=== PATIENT | male | born 1945 | race Caucasian/White ===

== ENCOUNTER → 2017-12-18 11:04 | Outpatient (CLI) | payer MEDICARE, SELFPAY ==
--- NOTE | 2017-12-18 11:12 | XR_ITS ---
XR chest 2V HISTORY: ITS.REASON: SOB ORDERING PHYSICIAN: Tammy Bishop PATIENT AGE: 72 years COMPARISON: 11/20/2015 FINDINGS: There is cardiomegaly with prominence of the mediastinum similar to the previous exam. Mediastinal lipomatosis noted on previous chest CT Chronic pleural parenchymal changes are present with fibrosis. There is some increased density in the right lung base consistent with infiltrate. No acute bony anomalies. IMPRESSION: 1. Cardiomegaly with COPD/pulmonary fibrosis 2. Patchy infiltrate in right lung base
--- NOTE | 2017-12-18 11:13 | XR_ITS ---
EXAM: XR lumbar spine min 4V HISTORY: ITS.REASON: RT LEG NUMBNESS ORDERING PHYSICIAN: Tammy Bishop PATIENT AGE: 72 years COMPARISON: None FINDINGS: Normal alignment. No fracture or dislocation. No lytic or blastic change. There is mild multilevel endplate osteophytes with degenerative disc disease present at L5-S1. Incidental vascular calcification aorta. IMPRESSION: Degenerative disc disease L5-S1 with osteophytosis
== END ==
PROVIDERS: PCP Nurse Practitioner Family; Visit Provider Nurse Practitioner Family
DX: R20.0 Anesthesia of skin (principal); R06.02 Shortness of breath
CPT/HCPCS: 71046; 72110

== ENCOUNTER → 2017-12-25 16:07 | Outpatient (CLI) | payer MEDICARE, SELFPAY ==
[2017-12-25 16:47] LABS: Basophils % 0.5 % (0.1-2.0); Eosinophils # 0.2 K/mm3 (0.0-0.4); Eosinophils % 2.6 % (0.1-12.0); Hematocrit 37.9 % (42.0-52.0); Hemoglobin 12.7 g/dL (14.1-18.0); Lymphocytes # 1.5 K/mm3 (0.7-4.5); Lymphocytes % 24.3 K/mm3 (10-50); Mean Corpuscular HGB Conc 33.5 g/dL (31.8-35.4); Mean Corpuscular Hemoglobin 28.7 pg (27.0-31.2); Mean Corpuscular Volume 85.7 fl (80-94); Mean Platelet Volume 7.1 fl (7.4-10.4); Monocytes # 0.2 K/mm3 (0.1-1.0); Monocytes % 3.2 % (1.7-9.3); Neutrophils # 4.4 K/mm3 (1.8-7.8); Neutrophils % 69.4 % (37.0-80.0); Platelet Count 361 K/mm3 (142-424); Red Blood Count 4.42 M/mm3 (4.60-6.20); Red Cell Distribution Width 13.7 % (11.5-17.5); White Blood Count 6.3 K/mm3 (4.8-10.8)
== END ==
PROVIDERS: PCP Nurse Practitioner Family; Visit Provider Nurse Practitioner Family
DX: J18.1 Lobar pneumonia, unspecified organism (principal)
CPT/HCPCS: 36415; 85025; 87275; 87276

== ENCOUNTER → 2018-01-24 13:46 | Outpatient (CLI) | payer MEDICARE, SELFPAY ==
[2018-01-24 14:21] LABS: Blood Urea Nitrogen 12 mg/dL (7-18); Creatinine,Serum 1.05 mg/dL (0.70-1.30); Estimated Glomerular Filt Rate 70 ml/min (>60); GFR (African American) 84 ML/MIN (>60)
== END ==
PROVIDERS: Visit Provider Nurse Practitioner
DX: R06.02 Shortness of breath (principal)
CPT/HCPCS: 36415; 82565; 84520

== ENCOUNTER → 2018-01-25 14:15 | Outpatient (CLI) | payer MEDICARE, SELFPAY ==
--- NOTE | 2018-01-25 14:18 | CT_ITS ---
CT chest wo/w con HISTORY: Pneumonia, shortness of breath, interstitial fibrosis ITS.REASON: SOB ORDERING PHYSICIAN: Kaitlynn Elena PATIENT AGE: 72 years Technique: Axial images obtained. Sagittal and coronal reformatted images are also generated and reviewed. All CT scans at the facility use one or more dose reduction, viz: automated exposure control; ma/kV adjustment per patient size (including targeted exams where dose is matched to indication; i.e. head); or iterative reconstruction technique. CONTRAST: 75ml Isovue 370 I.V. COMPARISON: 11/30/2015 FINDINGS: There is mild mediastinal adenopathy with mildly enlarged right paratracheal lymph nodes. Subcarinal adenopathy is present with a brigette area measuring 2.9 x 2.2 cm previously 1.8 x 1.5 cm. Coronary artery calcifications are present. There is left ventricular hypertrophy. There is extensive diffuse bilateral pulmonary fibrosis with peripheral pulmonary fibrotic changes and peripheral honeycombing. These findings have progressed compared to the previous exam. Mild bronchiectasis is present in the lung bases within the lower lobes, lingula, and right middle lobe. These findings have also progressed. One cannot exclude the possibility of superimposed pneumonia in the lung bases and right middle lobe. No pleural effusion. Upper abdominal images show cholelithiasis and exophytic 2 cm right renal cyst. No acute bony findings. IMPRESSION: 1. Diffuse pulmonary fibrosis with honeycombing and bronchiectasis. These findings have progressed when compared to the previous exam 2. Mediastinal adenopathy which is also somewhat worse. 3. Cholelithiasis. 4. Coronary artery disease with thickened left tracheal wall suggesting left ventricular hypertrophy
== END ==
PROVIDERS: Family Provider Nurse Practitioner; PCP Nurse Practitioner Family; Visit Provider Nurse Practitioner
DX: R06.02 Shortness of breath (principal)
CPT/HCPCS: 71270; Q9967

== ENCOUNTER 2018-08-13 13:44 | Observation (INO) ==
[2018-08-13 14:41] LABS: Anion Gap 10.8 mEq/L (5-15); Calcium 9.5 mg/dL (8.5-10.1); Potassium 3.8 mmoL/L (3.5-5.1)
--- NOTE | 2018-08-13 15:02 | Emergency Department Note ---
ED Disposition Clinical Impression: COPD (chronic obstructive pulmonary disease), Community acquired bacterial pneumonia Disposition: Still a Patient Condition on Discharge: Fair Referrals: Tammy Bishop APRN [Primary Care Provider] - - Critical Care Critical Care Time: No Attestation: On 08/13/18, the high probability of a clinically significant, sudden or life threatening deterioration of the following system(s) required my full and direct attention, intervention and personal management. The time I documented below is in addition to time spent performing reported procedures but includes the following listed in this critical care notation. Medical Decision Making - Jl Inquiry Pt receiving controlled substance: No Jl was queried for this patient: No Vital Signs: 08/13/18 13:51 08/13/18 14:27 Temperature 98.2 F Temperature Source Oral Pulse Rate 77 Pulse Rate [Left Radial] 71 Respiratory Rate 20 Blood Pressure [Right Arm] 142/82 H Blood Pressure Mean [Right Arm] 102 Blood Pressure Source [Right Arm] Automatic Cuff Blood Pressure Position [Right Arm] Sitting 02 Sat by Pulse Oximetry 99 Oxygen Delivery Method Nasal Cannula Oxygen Flow Rate (LPM) 3 - Lab Data Lab Results 08/13/18 14:15: WBC 8.3, RBC 4.36 L, Hgb 12.9 L, Hct 40.7 L, MCV 93.4, MCH 29.7, MCHC 31.8, RDW 14.7, Plt Count 513 H, MPV 7.2 L, Neut % (Auto) 69.1, Lymph % (Auto) 22.0, Nobles % (Auto) 3.5, Eos % (Auto) 4.6, Baso % (Auto) 0.7, Neut # (Auto) 5.8, Lymph # (Auto) 1.8, Nobles # (Auto) 0.3, Eos # (Auto) 0.4, Baso # (Auto) 0.1 08/13/18 14:15: Sodium 136, Potassium 3.8, Chloride 102, Carbon Dioxide 27, Anion Gap 10.8, BUN 11, Creatinine 0.76, Estimated Creat Clear 70, Estimated GFR 101, Est GFR ( Amer) 122, Glucose 85, Calcium 9.5 08/13/18 14:15: Lactate 1.1 08/13/18 14:15: Total Creatine Kinase 26 L, CK-MB (CK-2) 0.5, CK-MB (CK-2) Rel Index 1.9, Troponin I < 0.02 08/13/18 14:54: Specimen Source Rt radial, O2 % 28, ABG pH 7.44, ABG pCO2 35.5, ABG pO2 77.4 L, ABG HCO3 23.6, ABG Total CO2 24.7, ABG O2 Saturation 95, ABG Base Excess -0.5, Deondre Test Acceptable Result diagrams: 08/13/18 14:15 08/13/18 14:15 Orders (Tests/Meds): ED MEDICATIONS Discontinued Medications Generic Name Dose Route Start Last Admin Trade Name Freq PRN Reason Stop Dose Admin Albuterol/Ipratropium 3 ml 08/13/18 13:59 08/13/18 14:26 Duoneb 3ml Neb IH 08/13/18 14:00 3 ml ONCE ONE Administration Methylprednisolone Sodium Succinate 125 mg 08/13/18 13:58 08/13/18 14:24 Solu-Medrol 125mg/2ml Vial IV 08/13/18 13:59 125 mg ONCE ONE Administration ORDERS Category Date Time Status B-Type Natriuretic Peptide Stat Lab 08/13/18 14:15 Received D-Dimer Stat Lab 08/13/18 14:15 Received Blood Culture Stat Micro 08/13/18 14:15 Received ABG [Arterial Blood Gas] Stat RT 08/13/18 14:54 Ordered - Radiology Data #1 Image(s): Chest Image Reviewed: Yes I reviewed the patient's radiology image, Yes I have reviewed radiologist's interpretation Preliminary Findings: Abnormal IMPRESSION: Chronic changes with bilateral pneumonia Medical Decision Narrative: Although the patient had normal CBC and stable ABG his chest x-ray is positive for bilateral infiltrates. Spoke with Dr. Vasquez who agreed to admit him start him on community-acquired pneumonia protocol. Resp/SOB HPI - General Chief Complaint: Shortness of Breath/Dyspnea Stated Complaint: SOA Time Seen by Provider: 08/13/18 14:00 Mode of Arrival: Wheelchair Limitations: No Limitations Description of Symptoms (Recalled from ER Triage Doc. by RN): PT states that he has been feeling more SOA for the last week. Was seen at the [facility] where they were unable to get it to 88. Pt has home oxygen - History of Present Illness 73 years old white male with end-stage COPD and congestive heart failure he is on home oxygen dependent. Today they had difficulty keeping his oxygen above 50 upon arrival to the primary care physician office it was in the 88%. On arrival to the ED it was 98%. Patient complains of progressive shortness of breath for the past week. He denies having fever chills productive sputum or chest pain. Denies having hemoptysis hematemesis coffee-ground emesis or melanotic stool. MD Complaint: shortness of breath Onset (ago): week(s) (one week.) Severity: moderate Consistency/Duration: intermittent Relieving factors: oxygen, rest, bronchodilators Exacerbating factors: exertion Associated symptoms: denies other symptoms Treatment prior to arrival: oxygen - Related Data Allergies Allergy/AdvReac Type Severity Reaction Status Date / Time codeine [CODEINE] Allergy Unknown NA-NAUSEA/V Verified 08/13/18 13:59 OMITING [facility] History I have reviewed the patient's past medical history: Yes Medical History: Reports:: Cancer (Prostate) - Social History Smoking Status: Former smoker Alcohol Intake: current Alcohol Intake Frequency:: holidays/special occasions only - Psychiatric History Expresses thoughts of harming self/others: None Suicide Plan Description: No Plan ROS Obtained: Yes All systems reviewed & no additional complaints Physical Exam - General General appearance: alert, in no apparent distress - Head Head exam: atraumatic, normocephalic, normal inspection - Eye Eye exam: Present: normal appearance, PERRL, EOMI. Absent: scleral icterus, nystagmus - ENT ENT exam: Present: normal exam, normal oropharynx, mucous membranes moist, TM's normal bilaterally, normal external ear exam - Neck Neck exam: Present: normal inspection, full ROM, trachea midline. Absent: tenderness, meningismus, lymphadenopathy - Chest Chest inspection: Present: normal inspection, symmetric chest wall rise. Absent: tenderness - Respiratory Respiratory exam: Present: normal lung sounds bilaterally. Absent: respiratory distress, wheezes - Cardiovascular Cardiovascular exam: Present: regular rate, normal rhythm, normal heart sounds. Absent: JVD - Abdominal Exam Abdominal exam: Present: soft, normal bowel sounds. Absent: distention, ten derness, guarding, rebound, rigidity - Extremities Exam Extremities exam: Present: normal inspection, full ROM, normal capillary refill. Absent: calf tenderness - Back Exam Back exam: Present: normal inspection. Absent: tenderness, CVA tenderness (R), CVA tenderness (L), vertebral tenderness - Neurological Exam Neurological exam: Present: alert, oriented X3, CN II-XII intact, motor sensory deficit - Psychiatric Psychiatric exam: Present: normal affect, normal mood - Skin Skin exam: Present: warm, dry, intact, normal color - Lymphatic Lymphatic Findings: no adenopathy
[2018-08-13 15:12] LABS: ABG Base Excess -0.5 mmol/L (-2.4-2.3); ABG HCO3 23.6 mmhg (22.0-26.0); ABG Oxygen Saturation 95 % (90-100); ABG PCO2 35.5 mmhg (35.0-45.0); ABG PH 7.44 mmol/L (7.35-7.45); ABG PO2 77.4 mmhg (80-100); ABG TCO2 24.7 mmhg (23-27)
[2018-08-13 15:12] LABS: Basophils # 0.1 K/mm3 (0-0.2); Basophils % 0.7 % (0.1-2.0); Eosinophils # 0.4 K/mm3 (0.0-0.4); Eosinophils % 4.6 % (0.1-12.0); Hematocrit 40.7 % (42.0-52.0); Hemoglobin 12.9 g/dL (14.1-18.0); Lymphocytes # 1.8 K/mm3 (0.7-4.5); Mean Corpuscular HGB Conc 31.8 g/dL (31.8-35.4); Mean Corpuscular Hemoglobin 29.7 pg (27.0-31.2); Mean Corpuscular Volume 93.4 fl (80-94); Mean Platelet Volume 7.2 fl (7.4-10.4); Monocytes # 0.3 K/mm3 (0.1-1.0); Monocytes % 3.5 % (1.7-9.3); Neutrophils # 5.8 K/mm3 (1.8-7.8); Neutrophils % 69.1 % (37.0-80.0); Platelet Count 513 K/mm3 (142-424); Red Blood Count 4.36 M/mm3 (4.60-6.20); Red Cell Distribution Width 14.7 % (11.5-17.5); White Blood Count 8.3 K/mm3 (4.8-10.8)
[2018-08-13 15:23] LABS: Allen's Test Acceptable; Oxygen 28 %
[2018-08-13 15:26] LABS: Creatine Kinase 26 U/L (39-308)
--- NOTE | 2018-08-14 07:08 | History & Physical Report ---
*Admission Date: 08/13/18 *Chief complaint: Shortness of breath *History of present illness: 73-year-old male with COPD and pulmonary fibrosis for which she is oxygen dependent presented to the office yesterday afternoon with complaints of mild increase in shortness of breath from baseline and inability to keep his oxygen's elevated at home. Normally with ambulation patient will experience a transient drop in his O2 sats but can get them to return to the low 90s. At home his oxygen saturations have been dropping to the 50s and 60s and were very slow to return to the mid 80s. He had noticed increasing cough with white sputum production. He denies fevers or chills. He was seen in the office and O2 sats were in the 70s and 80s. He was referred to the emergency department. In the emergency department workup was begun. Patient had a blood gas that was quite good. O2 sats in the ER were in the mid 90s on 3 L of oxygen via nasal cannula. X-ray was interpreted as bilateral infiltrates. Patient has known pulmonary fibrosis and tells me he just finished a prolonged taper from steroids a couple of weeks ago. 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 [facility] History I have reviewed the patient's past medical history: Yes Medical History: Reports:: Cancer (Prostate), Congestive Heart Failure, Diabetes Mellitus Type 2, Hyperlipidemia, Hypertension Denies:: Diabetes Mellitus Type 1 Laterality Cases: Right: Cataract Other Surgeries: Yes: Hernia Repair, Other (retina sx) - *Social History Smoking Status: Former smoker Alcohol Intake: current Alcohol Intake Frequency:: holidays/special occasions only Occupational Status: retired - Psychiatric History Expresses thoughts of harming self/others: None Suicide Plan Description: No Plan *Family Hx:: Cancer, Heart Attack, Stroke Review of Systems - Review of Systems Review of systems:: pertinent systems reviewed and negative unless documented below - Constitutional Denies anorexia, Denies body ache(s), Denies chills, Denies daytime sleepiness, Denies excessive sweating, Denies fatigue, Denies fever(s) - *Cardiovascular Denies chest pain, Denies chest pain at rest, Denies chest pain with activity - *Respiratory Reports chest congestion, Reports cough, Reports shortness of breath, Reports shortness of breath with activity, Denies coughing up blood, Denies pain on inspiration, Denies pain with cough Meds Home Medications Medication Instructions Recorded Confirmed Type Albuterol Sulfate [Albuterol HFA 1 puff INHALATION Q4H 08/13/18 08/13/18 History Inhaler] Alendronate Sodium 70 mg PO BID 08/13/18 08/13/18 History Amlodipine Besylate 10 mg PO HS 08/13/18 08/13/18 History Citalopram Hydrobromide [Celexa 10 mg PO DAILY 08/13/18 08/13/18 History 10mg Tablet] Fenofibrate Nanocrystallized 145 mg PO DAILY 08/13/18 08/13/18 History [Fenofibrate] Fluticasone/Umeclidin/Vilanter 1 puff INHALATION DAILY 08/13/18 08/13/18 History [Trelegy Ellipta 100-62.5-25] Glimepiride [Amaryl 2mg tablet] 2 mg PO DAILY 08/13/18 08/13/18 History Metformin HCl 850 mg PO BID 08/13/18 08/13/18 History Nintedanib Esylate [Ofev] 150 mg PO BID 08/13/18 08/13/18 History Pravastatin Sodium [Pravachol 20mg 20 mg PO HS 08/13/18 08/13/18 History Tablet] hydroCHLOROthiazide [HCTZ 12.5mg 12.5 mg PO DAILY 08/13/18 08/13/18 History capsule] Allergies Allergy/AdvReac Type Severity Reaction Status Date / Time codeine [CODEINE] Allergy Unknown NA-NAUSEA/V Verified 08/13/18 13:59 OMITING Exam Vital signs and Labs for Last 24 Hours: Temp Pulse Resp BP Pulse Ox 98.1 F 77 20 135/71 91 L 08/14/18 04:00 08/14/18 04:00 08/14/18 04:00 08/14/18 04:00 08/14/18 04:00 Laboratory Results - last 24 hr 08/13/18 14:15: WBC 8.3, RBC 4.36 L, Hgb 12.9 L, Hct 40.7 L, MCV 93.4, MCH 29.7, MCHC 31.8, RDW 14.7, Plt Count 513 H, MPV 7.2 L, Neut % (Auto) 69.1, Lymph % (Auto) 22.0, Nolan % (Auto) 3.5, Eos % (Auto) 4.6, Baso % (Auto) 0.7, Neut # (Auto) 5.8, Lymph # (Auto) 1.8, Nolan # (Auto) 0.3, Eos # (Auto) 0.4, Baso # (Auto) 0.1 08/13/18 14:15: Sodium 136, Potassium 3.8, Chloride 102, Carbon Dioxide 27, Anion Gap 10.8, BUN 11, Creatinine 0.76, Estimated Creat Clear 70, Estimated GFR 101, Est GFR ( Amer) 122, Glucose 85, Calcium 9.5 08/13/18 14:15: Lactate 1.1 08/13/18 14:15: Total Creatine Kinase 26 L, CK-MB (CK-2) 0.5, CK-MB (CK-2) Rel Index 1.9, Troponin I < 0.02 08/13/18 14:15: D-Dimer 575 H* 08/13/18 14:15: B-Natriuretic Peptide 37 08/13/18 14:54: Specimen Source Rt radial, O2 % 28, ABG pH 7.44, ABG pCO2 35.5, ABG pO2 77.4 L, ABG HCO3 23.6, ABG Total CO2 24.7, ABG O2 Saturation 95, ABG B ase Excess -0.5, Deondre Test Acceptable 08/13/18 20:47: POC Glucose 398 H* 08/14/18 05:38: POC Glucose 244 H I & O for Last 24 hours: Intake & Output 08/11/18 08/12/18 08/13/18 08/14/18 11:59 11:59 11:59 11:59 Intake Total 647 / 647 Output Total 900 / 900 Balance -253 / -253 Weight 164 lb 8.002 oz Narrative: Patient is awake and alert this morning. He does not appear to be in any respiratory distress. Pupils are reactive to light. Oropharynx is moist and clear. Neck is without lymphadenopathy. Lungs have poor inspiratory effort with dry bibasilar crackles. Heart has a regular rate and rhythm. Abdomen is thin and soft. Patient can move all of his extremities. Assessment and Plan (1) Community acquired bacterial pneumonia Current visit: Yes Status: Acute Category: Medical Code(s): J15.9 - Unspecified bacterial pneumonia (2) Interstitial pulmonary fibrosis Current visit: Yes Status: Acute Category: Medical Code(s): J84.10 - Pulmonary fibrosis, unspecified (3) COPD (chronic obstructive pulmonary disease) Current visit: Yes Status: Acute Category: Medical Code(s): J44.9 - Chronic obstructive pulmonary disease, unspecified - Assessment and plan all Dx Assessment and Plan for all problems:: 1. Continue Rocephin and azithromycin. Continue steroid intravenously. Based on patient's clinical picture I believe he may be dealing more with a flareup of his pulmonary fibrosis then true bacterial pneumonia. Patient does not endorse any symptoms of infection such as fevers and chills. His white blood cell count was normal. I am going to repeat his x-ray today. Consult physical therapy to assess his ability to ambulate independently. Continue his home medications.
[2018-08-14 07:11] LABS: Basophils % 0.3 % (0.1-2.0); Eosinophils % 0.4 % (0.1-12.0); Hematocrit 34.2 % (42.0-52.0); Lymphocytes # 1.5 K/mm3 (0.7-4.5); Lymphocytes % 18.4 K/mm3 (10-50); Mean Corpuscular HGB Conc 31.9 g/dL (31.8-35.4); Mean Corpuscular Hemoglobin 29.6 pg (27.0-31.2); Mean Corpuscular Volume 92.9 fl (80-94); Mean Platelet Volume 7.6 fl (7.4-10.4); Monocytes # 0.3 K/mm3 (0.1-1.0); Monocytes % 3.9 % (1.7-9.3); Neutrophils # 6.4 K/mm3 (1.8-7.8); Neutrophils % 77.1 % (37.0-80.0); Platelet Count 468 K/mm3 (142-424); Red Blood Count 3.69 M/mm3 (4.60-6.20); Red Cell Distribution Width 14.4 % (11.5-17.5); White Blood Count 8.4 K/mm3 (4.8-10.8)
[2018-08-14 07:22] LABS: Anion Gap 13.9 mEq/L (5-15); Calcium 8.7 mg/dL (8.5-10.1); Potassium 3.9 mmoL/L (3.5-5.1)
--- NOTE | 2018-08-14 07:44 | Pharmacy Consult Notes ---
[facility] Pharmacy VTE Monitoring - Patient Demographics Admission date: 08/13/18 Report Date: 08/14/18 Time: 07:44 Allergies/Adverse Reactions: Patient Allergies codeine [CODEINE] Allergy (Unknown, Verified 08/13/18 13:59) NA-NAUSEA/VOMITING Height: 1.8 m Weight: 74.616 kg Patient Problems: Current Active Problems COPD (chronic obstructive pulmonary disease) (Acute) Community acquired bacterial pneumonia (Acute) Interstitial pulmonary fibrosis (Acute) - VTE Risk Labs: VTE Related Lab Results Hgb 11.0 g/dL (14.1-18.0) L D 08/14/18 06:47 Hct 34.2 % (42.0-52.0) L 08/14/18 06:47 Plt Count 468 K/mm3 (142-424) H 08/14/18 06:47 BUN 11 mg/dL (7-18) 08/14/18 06:47 Creatinine 0.72 mg/dL (0.70-1.30) 08/14/18 06:47 Estimated Creat Clear 70 mL/min (0-300) 08/14/18 06:47 Was VTE Risk Assessment Performed: Yes VTE Score: 4 VTE Risk Level: Low Risk - Prophylaxis VTE Prophylaxis Ordered?: Yes Types of VTE Prophylaxis: TEDS Knee High Location of Applied Device: Bilateral Lower Extremeties - VTE Diagnosis Confirmed Treatment or plan recommended: Continue Current Treatment
--- NOTE | 2018-08-15 06:57 | Progress Note ---
Internal Medicine - PN: Subj *Date: 08/15/18 *Time: 06:54 Interval history: Patient has been awake most of the night after he developed some discomfort in his chest and shoulder around 1 AM. First episode of pain he describes as an aching sensation around the collarbone. Admits he had a similar pain 4-5 years ago. His pain lasted about 5-10 minutes before resolving. It occurred after he had moved to sitting on the side of the bed to use the urinal. Second episode of chest pain occurred shortly thereafter and he described as below the collarbone radiating down the left side of the chest. That pain lasted about 15 minutes. Throughout the night he admits he has had spots of pain in his left arm. In regard to his shortness of breath he feels like that has improved. He did see physical therapy yesterday. It was determined he does not have any current PT needs. Cough remains productive of white sputum Exam Vital signs and Labs for Last 24 Hours: Temp Pulse Resp BP Pulse Ox 97.7 F 85 16 147/79 H 91 L 08/15/18 04:00 08/15/18 04:00 08/15/18 04:00 08/15/18 04:00 08/15/18 06:28 Laboratory Results - last 24 hr 08/14/18 06:47: WBC 8.4, RBC 3.69 L, Hgb 11.0 L D, Hct 34.2 L, MCV 92.9, MCH 29.6, MCHC 31.9, RDW 14.4, Plt Count 468 H, MPV 7.6, Neut % (Auto) 77.1, Lymph % (Auto) 18.4, Nobles % (Auto) 3.9, Eos % (Auto) 0.4, Baso % (Auto) 0.3, Neut # (Auto) 6.4, Lymph # (Auto) 1.5, Nobles # (Auto) 0.3, Eos # (Auto) 0.0, Baso # (Auto) 0.0 08/14/18 06:47: Sodium 135 L, Potassium 3.9, Chloride 101, Carbon Dioxide 24, Anion Gap 13.9, BUN 11, Creatinine 0.72, Estimated Creat Clear 70, Estimated GFR 107, Est GFR ( Amer) 130, Glucose 250 H D, Calcium 8.7 08/14/18 11:52: POC Glucose 162 H 08/14/18 16:54: POC Glucose 298 H 08/14/18 20:32: POC Glucose 279 H 08/15/18 01:31: Troponin I < 0.02 08/15/18 06:00: POC Glucose 287 H I & O for Last 24 hours: Intake & Output 08/12/18 08/13/18 08/14/18 08/15/18 11:59 11:59 11:59 11:59 Intake Total 887 / 887 288 / 288 Output Total 1600 / 1600 2525 / 2525 Balance -713 / -713 -2237 / -2237 Weight 164 lb 8.002 oz Narrative: Patient does not appear to be in any distress. Lung examination reveals diffuse crackles from the left midlung to the base. Decreased basilar breath sounds. I do not hear any rales on the right today. Heart has a regular rate and rhythm. Assessment and Plan (1) Community acquired bacterial pneumonia Current visit: Yes Status: Acute Category: Medical Code(s): J15.9 - Unspecified bacterial pneumonia (2) Interstitial pulmonary fibrosis Current visit: Yes Status: Acute Category: Medical Code(s): J84.10 - Pulmonary fibrosis, unspecified (3) COPD (chronic obstructive pulmonary disease) Current visit: Yes Status: Acute Category: Medical Code(s): J44.9 - Chronic obstructive pulmonary disease, unspecified - Assessment and plan all Dx Assessment and Plan for all problems:: 1. Continue Rocephin and azithromycin 2. DC steroids 3. He has had a single negative troponin, repeat troponin at 8 AM 4. Echocardiogram today 5. Low-dose beta-michael
--- NOTE | 2018-08-16 06:43 | Discharge Summary ---
General - General Admission date:: 08/13/18 Discharge date: 08/16/18 HPI HPI: 73-year-old male with COPD and pulmonary fibrosis for which she is oxygen dependent presented to the office yesterday afternoon with complaints of mild increase in shortness of breath from baseline and inability to keep his oxygen's elevated at home. Normally with ambulation patient will experience a transient drop in his O2 sats but can get them to return to the low 90s. At home his oxygen saturations have been dropping to the 50s and 60s and were very slow to return to the mid 80s. He had noticed increasing cough with white sputum production. He denies fevers or chills. He was seen in the office and O2 sats were in the 70s and 80s. He was referred to the emergency department. In the emergency department workup was begun. Patient had a blood gas that was quite good. O2 sats in the ER were in the mid 90s on 3 L of oxygen via nasal cannula. X-ray was interpreted as bilateral infiltrates. Patient has known pulmonary fibrosis and tells me he just finished a prolonged taper from steroids a couple of weeks ago. His sole rounder is Dr. Matute. Hospital Course Hospital Course: Is admitted and placed on Rocephin and azithromycin. Initially he was also placed on Solu-Medrol intravenously. Patient improved a little each day. After the first day of admission chest x-ray was repeated as he has known pulmonary fibrosis and I thought perhaps the areas of "infiltrate" were only areas of his increased pulmonary fibrosis that had been detected earlier in the year. However repeat x-rays did confirm infiltrates. Patient continued to improve a little each day. He remained on oxygen which he is dependent on at home. His O2 sats were in the mid 90s during the entire hospitalization. By August 16 patient's dyspnea had improved. He was ambulating without assistance. He was discharged home. His hospitalization did include one episode of pain occurring around 1 AM on the morning of August 15. Serial enzymes were negative. EKG was unrevealing for acute ischemia or infarct. Echocardiogram was ordered but at the time of this dictation there is no result. Patient will complete a cord antibiotics. He will follow-up in my office next week for flu vaccination Objective Vital signs: Temp Pulse Resp BP Pulse Ox 98.8 F 68 14 126/73 96 08/16/18 04:00 08/16/18 04:00 08/16/18 04:00 08/16/18 04:00 08/16/18 04:00 Results Labs on day of discharge: Labs from last 24 hours 08/15/18 08/15/18 08/15/18 16:43 11:58 08:02 POC Glucose 191 H 239 H Troponin I < 0.02 Preliminary micro results at discharge 08/13/18 14:15 Blood Culture - Preliminary Blood NO GROWTH AFTER 48 HOURS 08/13/18 14:15 Blood Culture - Preliminary Blood NO GROWTH AFTER 48 HOURS DS: Diagnosis - Discharge Diagnosis (1) Community acquired bacterial pneumonia Status: Acute (2) Interstitial pulmonary fibrosis Status: Acute (3) COPD (chronic obstructive pulmonary disease) Status: Acute (4) Chest pain Status: Acute Discharge Plan - Patient Discharge Instructions ACTIVITY: Continue current activity DIET: continue same diet - Follow up Plan Follow up with: Mo Vasquez MD [Staff Physician] - 08/21/18 10:00 am Disposition: Home, Self-Halfway Medications: Home Medications Medication Instructions Recorded Confirmed Type Albuterol Sulfate [Albuterol HFA 2 puff INHALATION Q4HP PRN 08/13/18 08/14/18 History Inhaler] Alendronate Sodium 70 mg PO TU 08/13/18 08/14/18 History Amlodipine Besylate 10 mg PO HS 08/13/18 08/13/18 History Citalopram Hydrobromide [Celexa 10 mg PO DAILY 08/13/18 08/13/18 History 10mg Tablet] Fenofibrate Nanocrystallized 145 mg PO DAILY 08/13/18 08/13/18 History [Fenofibrate] Fluticasone/Umeclidin/Vilanter 1 puff INHALATION DAILY 08/13/18 08/13/18 History [Trelegy Ellipta 100-62.5-25] Glimepiride [Amaryl 2mg tablet] 2 mg PO DAILY 08/13/18 08/13/18 History Metformin HCl 850 mg PO BID 08/13/18 08/13/18 History Nintedanib Esylate [Ofev] 150 mg PO BID 08/13/18 08/13/18 History Pravastatin Sodium [Pravachol 20mg 20 mg PO HS 08/13/18 08/13/18 History Tablet] hydroCHLOROthiazide [HCTZ 12.5mg 12.5 mg PO DAILY 08/13/18 08/13/18 History capsule] Prescriptions/Medication Reconciliation: New Azithromycin [Zithromax 250mg tab] 250 mg PO DAILY #3 tablet Continue Metformin HCl 850 mg PO BID hydroCHLOROthiazide [HCTZ 12.5mg capsule] 12.5 mg PO DAILY Fluticasone/Umeclidin/Vilanter [Trelegy Ellipta 100-62.5-25] 1 puff INHALATION DAILY Fenofibrate Nanocrystallized [Fenofibrate] 145 mg PO DAILY Citalopram Hydrobromide [Celexa 10mg Tablet] 10 mg PO DAILY Amlodipine Besylate 10 mg PO HS Alendronate Sodium 70 mg PO TU Albuterol Sulfate [Albuterol HFA Inhaler] 2 puff INHALATION Q4HP PRN PRN Reason: Shortness Of Breath Pravastatin Sodium [Pravachol 20mg Tablet] 20 mg PO HS Glimepiride [Amaryl 2mg tablet] 2 mg PO DAILY Nintedanib Esylate [Ofev] 150 mg PO BID
--- NOTE | 2018-08-16 14:39 | Cardiology Report ---
PROCEDURE: 2-D M-mode and color Doppler study INDICATIONS FOR THE TEST: Chest pain+ COPD+ Heart Murmur Tobacco SmokingEX Palpitations Fatigue Syncope Edema Hypertension+Diabetes Mellitus+ Rheumatic Fever SOB+PEPE+Obesity Hyperlipidemia+ Family History HD Additional History pulmonary fibrosis PATIENT INFORMATION HEIGHT: 72 WEIGHT: 164 GENDER: Male B/P: 147/79 2-D/M-MODE INTERPRETATION: 2-D MEASUREMENTS OBSERVED VALUES IN CMS Right Ventricular Dimension (RVDd) 1.8 Interventricular Septum (Thickness)(IVsd) 1.0 Left Ventricular Internal Dimensions(LVIDd) 4.7 Left Ventricular Posterior Wall (Thickness)(LVPWd) 1.0 Aortic Root 3.6 Aortic Cusp Separation 2.6 Left Atrial Dimensions (LAD) 2.3 2D 1. Left atrium is qualitatively mildly enlarged, left ventricle is normal size, mild qualitative concentric left ventricular hypertrophy, visually estimated ejection fraction 55% with no regional wall motion abnormality. 2. The right atrium and right ventricle are normal size and contractility. 3. The aortic valve is minimally thickened and fibrosed. 4. The mitral and tricuspid valvular grossly normal. 5. The pulmonic valve is poorly visualized. 6. No significant pericardial effusion noted. DOPPLER INTERROGATION: Doppler interrogation of the aortic, mitral and tricuspid valvular presence of mild mitral and tricuspid regurgitation, tricuspid regurgitation jet velocity is insufficient for calculation of the right ventricular systolic pressure, grade 1 diastolic dysfunction seen with tissue Doppler evidence of raised left atrial pressure. CONCLUSION: 1. Mildly enlarged left atrium, normal left ventricular size, mild qualitative concentric left ventricular hypertrophy, visually estimated ejection fraction 55% with no regional wall motion abnormality, grade 1 diastolic dysfunction seen with tissue Doppler evidence of raised left atrial pressure. 2. Mild mitral and tricuspid regurgitation 3. No significant pericardial effusion noted.
== END 2018-08-16 10:45 | disposition home or self-care (01) ==
LOC: 2ND 13:44 → ER 13:44 → 2ND 18:36
PROVIDERS: ADMIT Family Medicine; ATTEND Family Medicine

== ENCOUNTER → 2018-09-26 15:02 | Outpatient (CLI) | payer MEDICARE, SELFPAY ==
--- NOTE | 2018-09-26 15:12 | XR_ITS ---
XR chest 2V HISTORY: ITS.REASON: PULMONARY FIBROSIS,PNEUMONIA ORDERING PHYSICIAN: Roz Emmanuel PATIENT AGE: 73 years COMPARISON: 08/15/2018 FINDINGS: There is cardiomegaly without failure. There is diffuse pulmonary fibrotic changes with pleural thickening similar to the previous exam. No new areas of consolidation are evident. Previously noted superimposed pneumonia in the left upper lobe has shown improvement. IMPRESSION: Cardiomegaly with diffuse pulmonary fibrotic changes with no acute finding
== END ==
PROVIDERS: PCP Family Medicine; Visit Provider Nurse Practitioner Family
DX: J84.10 Pulmonary fibrosis, unspecified (principal); J18.9 Pneumonia, unspecified organism
CPT/HCPCS: 71046

== ENCOUNTER → 2019-02-13 13:15 | Outpatient (POV) | payer MEDICARE, SELFPAY | DX: Z00.00 Encounter for general adult medical examination without abnormal findings (principal) ==

== ENCOUNTER 2019-03-01 21:25 | Observation (INO) ==
--- NOTE | 2019-03-01 21:36 | Emergency Department Note ---
ED Disposition Clinical Impression: Proctitis, COPD (chronic obstructive pulmonary disease) Disposition: Admitted as Observation Condition on Discharge: Fair Instructions: DI for Urinary Tract Infection (UTI), DI for Urinary Tract Infection in Children Referrals: Mo Vasquez MD [Primary Care Provider] - Time of Disposition: 00:00 - Critical Care Critical Care Time: No Attestation: On , the high probability of a clinically significant, sudden or life threatening deterioration of the following system(s) required my full and direct attention, intervention and personal management. The time I documented below is in addition to time spent performing reported procedures but includes the following listed in this critical care notation. Medical Decision Making - Medical Records Medical records reviewed: Yes: I reviewed the patient's medical records. - Jl Inquiry Pt receiving controlled substance: No Jl was queried for this patient: No Vital Signs: 03/01/19 21:25 Temperature 98.0 F Temperature Source Oral Pulse Rate [Right Brachial] 98 H Respiratory Rate 15 Blood Pressure [Right Arm] 156/80 H Blood Pressure Mean [Right Arm] 105 02 Sat by Pulse Oximetry 91 L Oxygen Delivery Method Nasal Cannula Oxygen Flow Rate (LPM) 4 - Lab Data Lab results reviewed: Yes: I reviewed the patient's lab results. Lab Results 03/01/19 21:35: Urine Color Yellow, Urine Appearance Clear, Urine pH 6.5, Ur Specific Wallback 1.020, Urine Protein Negative, Urine Glucose (UA) Negative, Urine Ketones Negative, Urine Blood Negative, Urine Nitrate Negative, Urine Bilirubin Negative, Urine Urobilinogen 0.2, Ur Leukocyte Esterase Negative, Urine WBC 3-5, Ur Squamous Epith Cells 3-5, Urine Bacteria 1+ 03/01/19 21:45: WBC 16.6 H, RBC 4.43 L, Hgb 13.8 L, Hct 41.0 L, MCV 92.4, MCH 31.0, MCHC 33.6, RDW 14.0, Plt Count 410, MPV 6.7 L, Neut % (Auto) 83.6 H, Lymph % (Auto) 10.5, Thayer % (Auto) 2.8, Eos % (Auto) 2.9, Baso % (Auto) 0.3, Neut # (Auto) 13.9 H, Lymph # (Auto) 1.7, Thayer # (Auto) 0.5, Eos # (Auto) 0.5 H, Baso # (Auto) 0.0, Total Counted 100, Neutrophils % (Manual) 86 H, Lymphocytes % (Manual) 7 L, Monocytes % (Manual) 3, Eosinophils % (Manual) 4 H, Platelet Estimate Normal, Anisocytosis 1+ 03/01/19 21:45: Sodium 132 L, Potassium 3.7, Chloride 98, Carbon Dioxide 26, Anion Gap 11.7, BUN 15, Creatinine 0.72, Estimated Creat Clear 69, Estimated GFR 107, Est GFR ( Amer) 130, Glucose 65 L, Calcium 9.0, Total Bilirubin 0.4, AST 19, ALT 30, Alkaline Phosphatase 44 L, Total Protein 6.7, Albumin 3.1 L, Globulin 3.6 H, Albumin/Globulin Ratio 0.9 L, Amylase 64, Lipase 118 03/01/19 23:45: POC Glucose 68 L Result diagrams: 03/01/19 21:45 03/01/19 21:45 Orders (Tests/Meds): ED MEDICATIONS Generic Name Dose Route Start Last Admin Trade Name Freq PRN Reason Stop Dose Admin Sodium Chloride 1,000 mls @ 999 mls/hr 03/01/19 21:45 03/01/19 21:46 Sod Chlor 0.9% 1000ml Bag IV 03/01/19 22:45 999 mls/hr .Q1H1M VERONICA Administration Levofloxacin/Dextrose 750 mg in 150 mls @ 100 mls/hr 03/01/19 23:45 Levofloxacin 750mg/150ml Premix IV 03/15/19 23:44 Q24H VERONICA Protocol Metronidazole 500 mg in 100 mls @ 100 mls/hr 03/01/19 23:45 03/01/19 23:50 Flagyl 500mg/100ml Ivpb IV 03/15/19 23:44 100 mls/hr Q8H VERONICA Administration Protocol Discontinued Medications Generic Name Dose Route Start Last Admin Trade Name Freq PRN Reason Stop Dose Admin Dextrose 25 ml 03/01/19 23:46 03/01/19 23:50 Dextrose 50% 50ml Syringe IVP 03/01/19 23:47 25 ml ONCE ONE Administration Dextrose/Sodium Chloride 1,000 mls @ 125 mls/hr 03/01/19 23:45 Dextrose 5%-0.9% Nacl Iv Soln IV 03/31/19 23:44 .Q8H VERONICA ORDERS Category Date Time Status CT abdomen pelvis wo con Stat Cat Scan 03/01/19 21:36 Taken Male Urogenital HPI - General Chief complaint: Urogenital-Male Stated complaint: urine retention and constipation Time Seen by Provider: 03/01/19 21:31 Mode of Arrival: EMS Source of Information: Patient Limitations: No Limitations Description of Symptoms (Recalled from ER Triage Doc. by RN): Pt brought in by EMS for c/o bladder rentention and constipation. Hx of prostate cancer. - History of Present Illness HPI Narrative: last void mid-morning. history prostate CA, s/p irradiation - Related Data Home Medications Medication Instructions Recorded Confirmed Albuterol Sulfate [Albuterol HFA 2 puff INHALATION Q4HP PRN 08/13/18 03/01/19 Inhaler] Fenofibrate Nanocrystallized 145 mg PO DAILY 08/13/18 03/01/19 [Fenofibrate] Fluticasone/Umeclidin/Vilanter 1 puff INHALATION DAILY 08/13/18 03/01/19 [Trelegy Ellipta 100-62.5-25] Glimepiride [Amaryl 2mg tablet] 2 mg PO DAILY 08/13/18 03/01/19 Metformin HCl 850 mg PO BID 08/13/18 03/01/19 Nintedanib Esylate [Ofev] 150 mg PO BID 08/13/18 03/01/19 Pravastatin Sodium [Pravachol 20mg 20 mg PO HS 08/13/18 03/01/19 Tablet] hydroCHLOROthiazide [HCTZ 12.5mg 12.5 mg PO DAILY 08/13/18 03/01/19 capsule] Amlodipine Besylate 10 mg PO HS 03/01/19 03/01/19 Aspirin [Aspirin 81mg chewable 81 mg PO DAILY 03/01/19 03/01/19 tab] Megestrol Acetate [Megestrol 1 mg PO DAILY 03/01/19 03/01/19 Acetate 40mg Tablet] Allergies Allergy/AdvReac Type Severity Reaction Status Date / Time codeine [CODEINE] Allergy Unknown NA-NAUSEA/V Verified 03/01/19 21:30 OMITING [facility] History - Hepatitis A Screen Drug use history?: No High risk sexual behaviors?: No History of sexually transmitted infection?: No Currently employed?: No Childcare worker?: No Do you have indoor plumbing?: No Do you have electricity?: No Attestation statement:: This patient has been screened for Hepatitis A risk factors. I have reviewed the patient's past medical history: Yes Medical History: Reports:: Cancer (Prostate), Congestive Heart Failure, Diabetes Mellitus Type 2, Hyperlipidemia, Hypertension Denies:: Diabetes Mellitus Type 1 Other Surgeries: Yes: Hernia Repair, Other (retina sx) - Social History Smoking Status: Former smoker Alcohol Intake: current Alcohol Intake Frequency:: holidays/special occasions only Occupational Status: retired Housing: house - Psychiatric History Expresses thoughts of harming self/others: None Suicide Plan Description: No Plan Family Hx:: Cancer, Heart Attack, Stroke ROS Obtained: Yes All systems reviewed & no additional complaints - Constitutional Constitutional: Reports chills, Denies fever(s) - Cardiovascular Cardiovascular: Denies chest pain, Reports diaphoresis, Reports dyspnea, Reports other (on home oxygen) - Respiratory Respiratory: Yes dyspnea - Gastrointestinal Gastrointestingal: Reports: abdominal pain, vomiting - Genitourinary Male Genitourinary: Reports difficulty urinating, Reports decreased urination, Reports other (urinary retention) - Integumentary/Breasts Skin/Breast: Denies rash - Neurologic Neurologic: Reports system reviewed and no additional complaints, except as docu - Hematologic/Lymphatic Henatologic/Lymphatic: Denies easy bleeding, Denies easy bruising Physical Exam - General General appearance: alert, anxious, in distress - Head Head exam: atraumatic, normocephalic, normal inspection - Eye Eye exam: Present: normal appearance, PERRL, EOMI - ENT ENT exam: Present: normal exam, normal oropharynx, mucous membranes moist, TM's normal bilaterally, normal external ear exam - Chest Chest inspection: Present: normal inspection, symmetric chest wall rise. Absent: tenderness - Respiratory Respiratory exam: Present: normal lung sounds bilaterally. Absent: respiratory distress - Cardiovascular Cardiovascular exam: Present: regular rate, normal rhythm. Absent: JVD - Abdominal Exam Abdominal exam: Present: soft, distention, tenderness Abdominal tenderness: Present: LLQ, moderate Comment: did not resolve with bladder decompression. relating to need for bm, unable to. Will evaluate with CT, pain seems consistent with possible diverticulitis and would not want to miss that given his wbc is [id number] - Extremities Exam Extremities exam: Present: normal inspection - Back Exam Back exam: Present: normal inspection. Absent: tenderness - Neurological Exam Neurological exam: Present: alert, oriented X3
[2019-03-01 21:44] LABS: Microscopic, Urine URINE MICROSCOPIC (MICROSCOPIC)
[2019-03-01 21:45] LABS: Appearance,Urine CLEAR (Clear); Bilirubin,Urine Negative (Negative); Blood, Urine Negative (Negative); Color,Urine YELLOW (Yellow); Glucose,Urine (UA) Negative (Negative); Ketones,Urine Negative (Negative); Leukocyte Esterase,Urine Negative (Negative); PH,Urine 6.5 (5.0-8.5); Protein,Urine Negative (Negative); Urobilinogen,Urine 0.2 EU/dl (0.2)
[2019-03-01 21:53] LABS: Basophils % 0.3 % (0.1-2.0); Eosinophils # 0.5 K/mm3 (0.0-0.4); Eosinophils % 2.9 % (0.1-12.0); Hemoglobin 13.8 g/dL (14.1-18.0); Lymphocytes # 1.7 K/mm3 (0.7-4.5); Lymphocytes % 10.5 % (10-50); Mean Corpuscular HGB Conc 33.6 g/dL (31.8-35.4); Mean Corpuscular Volume 92.4 fl (80-94); Mean Platelet Volume 6.7 fl (7.4-10.4); Monocytes # 0.5 K/mm3 (0.1-1.0); Monocytes % 2.8 % (1.7-9.3); Neutrophils # 13.9 K/mm3 (1.8-7.8); Neutrophils % 83.6 % (37.0-80.0); Platelet Count 410 K/mm3 (142-424); Red Blood Count 4.43 M/mm3 (4.60-6.20); White Blood Count 16.6 K/mm3 (4.8-10.8)
[2019-03-01 21:53] LABS: Bacteria,Urine 1+ /lpf
[2019-03-01 22:07] LABS: Albumin Level 3.1 gm/dL (3.4-5.0); Albumin/Globulin Ratio 0.9 (1.1-1.8); Anion Gap 11.7 mEq/L (5-15); Bilirubin,Total 0.4 mg/dL (0.2-1.0); Globulin 3.6 gm/dl (1.3-3.2); Potassium 3.7 mmoL/L (3.5-5.1); Total Protein,Serum 6.7 gm/dL (6.4-8.2)
[2019-03-01 22:32] LABS: Anisocytosis 1+; Eosinophils % 4 % (0-3); Lymphocytes % 7 % (10-50); Monocytes % 3 % (2-9); Neutrophils % 86 % (42-76); Total Cells Counted 100
[2019-03-02 07:24] LABS: Basophils % 0.2 % (0.1-2.0); Eosinophils # 0.2 K/mm3 (0.0-0.4); Eosinophils % 1.8 % (0.1-12.0); Hematocrit 35.3 % (42.0-52.0); Lymphocytes # 1.2 K/mm3 (0.7-4.5); Lymphocytes % 10.7 % (10-50); Mean Corpuscular HGB Conc 33.8 g/dL (31.8-35.4); Mean Corpuscular Hemoglobin 31.3 pg (27.0-31.2); Mean Corpuscular Volume 92.5 fl (80-94); Monocytes # 0.4 K/mm3 (0.1-1.0); Monocytes % 3.2 % (1.7-9.3); Neutrophils # 9.4 K/mm3 (1.8-7.8); Platelet Count 306 K/mm3 (142-424); Red Blood Count 3.81 M/mm3 (4.60-6.20); Red Cell Distribution Width 14.1 % (11.5-17.5); White Blood Count 11.2 K/mm3 (4.8-10.8)
[2019-03-02 07:37] LABS: Anion Gap 12.5 mEq/L (5-15); Calcium 8.1 mg/dL (8.5-10.1); Potassium 3.5 mmoL/L (3.5-5.1)
--- NOTE | 2019-03-02 07:41 | H&P/Discharge Summary ---
General - General Admission date:: 03/02/19 Discharge date: 03/01/19 *Admission Date: 03/01/19 *Chief complaint: "I cannot pee and I cannot have a bowel movement" *History of present illness: This document was started in error, please see history and physical. [facility] History I have reviewed the patient's past medical history: Yes Medical History: Reports:: Cancer (Prostate), Congestive Heart Failure, Chronic Obstructive Pulmonary Disease (COPD), Diabetes Mellitus Type 2, Hyperlipidemia, Hypertension Denies:: Diabetes Mellitus Type 1, MRSA *Have you ever received a pneumonia vaccine?: Yes *Have you received a flu vaccine this season?: Yes Comment:: Interstitial pulmonary fibrosis Other Surgeries: Yes: Colonoscopy, Hernia Repair, Other (retina sx) Amputation: No - *Social History Educational Level: Attended High School Smoking Status: Current some day smoker Tobacco Type: smokeless tobacco # Packs/Day (cigarettes): 0 Alcohol Intake: current Alcohol Intake Frequency:: holidays/special occasions only *Occupational Status:: retired Housing: house Household Members: spouse, family *Travel in the last 8 weeks: None - Psychiatric History Expresses thoughts of harming self/others: None Suicide Plan Description: No Plan Family Hx:: Cancer, Heart Attack, Stroke Review of Systems - Review of Systems Review of systems:: pertinent systems reviewed and negative unless documented below - Constitutional Denies body ache(s), Denies chills - *Cardiovascular Denies chest pain, Denies chest pain at rest, Denies chest pain with activity - *Respiratory Denies chest congestion, Denies cough - *Gastrointestinal Reports change in bowel habits, Reports constipation, Reports cramping, Denies belching, Denies bloating, Denies coffee ground vomit, Denies difficulty swallowing - *Genitourinary Reports difficulty urinating Exam Vital signs and Labs for Last 24 Hours: Temp Pulse Resp BP Pulse Ox 98.3 F 91 H 18 120/72 94 L 03/02/19 04:26 03/02/19 04:26 03/02/19 04:26 03/02/19 04:26 03/02/19 04:26 Laboratory Results - last 24 hr 03/01/19 21:35: Urine Color Yellow, Urine Appearance Clear, Urine pH 6.5, Ur Specific [place] 1.020, Urine Protein Negative, Urine Glucose (UA) Negative, Urine Ketones Negative, Urine Blood Negative, Urine Nitrate Negative, Urine Bilirubin Negative, Urine Urobilinogen 0.2, Ur Leukocyte Esterase Negative, Urine WBC 3-5, Ur Squamous Epith Cells 3-5, Urine Bacteria 1+ 03/01/19 21:45: WBC 16.6 H, RBC 4.43 L, Hgb 13.8 L, Hct 41.0 L, MCV 92.4, MCH 31.0, MCHC 33.6, RDW 14.0, Plt Count 410, MPV 6.7 L, Neut % (Auto) 83.6 H, Lymph % (Auto) 10.5, [place] % (Auto) 2.8, Eos % (Auto) 2.9, Baso % (Auto) 0.3, Neut # (Auto) 13.9 H, Lymph # (Auto) 1.7, [place] # (Auto) 0.5, Eos # (Auto) 0.5 H, Baso # (Auto) 0.0, Total Counted 100, Neutrophils % (Manual) 86 H, Lymphocytes % (Manual) 7 L, Monocytes % (Manual) 3, Eosinophils % (Manual) 4 H, Platelet Estimate Normal, Anisocytosis 1+ 03/01/19 21:45: Sodium 132 L, Potassium 3.7, Chloride 98, Carbon Dioxide 26, Anion Gap 11.7, BUN 15, Creatinine 0.72, Estimated Creat Clear 69, Estimated GFR 107, Est GFR ( Amer) 130, Glucose 65 L, Calcium 9.0, Total Bilirubin 0.4, AST 19, ALT 30, Alkaline Phosphatase 44 L, Total Protein 6.7, Albumin 3.1 L, Globulin 3.6 H, Albumin/Globulin Ratio 0.9 L, Amylase 64, Lipase 118 03/01/19 23:45: POC Glucose 68 L 03/02/19 00:10: Lactate 1.1 03/02/19 00:17: POC Glucose 175 H 03/02/19 01:45: Stl Aeromonas (PCR) Not detected, Stl C. cayetanensis PCR Not detected, Stool Rotavirus (PCR) Not detected, Stl Adenov F 40/41 PCR Not detected, Stool Astrovirus (PCR) Not detected, Stool Campylobacter PCR Not detected, Stl C.difficile Tox PCR Not detected, Stool Cryptosporidium PCR Not detected, Stl E.coli Shiga Tox PCR Not detected, Stool E coli O157 PCR Not detected, Stl Enterotoxigenic E PCR Not detected, Stool EPEC (PCR) Not detected, Stool EAEC (PCR) Not detected, Stl E. histolytica PCR Not detected, Stool G iardia Lamblia PCR Not detected, Stool Salmonella PCR Not detected, Stool Sapovirus (PCR) Not detected, Stl P. shigelloides PCR Not detected, Stl Shigella/EIEC PCR Not detected, St Y.enterocolitica PCR Not detected, Stool Vibrio (PCR) Not detected, Stl Vibrio cholerae PCR Not detected, Stl Norovirus GI/GII PCR Not detected 03/02/19 06:00: WBC 11.2 H D, RBC 3.81 L, Hgb 12.0 L D, Hct 35.3 L, MCV 92.5, MCH 31.3 H, MCHC 33.8, RDW 14.1, Plt Count 306 D, MPV 7.0 L, Neut % (Auto) 84.0 H, Lymph % (Auto) 10.7, [place] % (Auto) 3.2, Eos % (Auto) 1.8, Baso % (Auto) 0.2, Neut # (Auto) 9.4 H, Lymph # (Auto) 1.2, [place] # (Auto) 0.4, Eos # (Auto) 0.2, Baso # (Auto) 0.0 I & O for Last 24 hours: Intake & Output 02/27/19 02/28/19 03/01/19 03/02/19 11:59 11:59 11:59 11:59 Intake Total 1593 / 1593 Output Total 750 / 750 Balance 843 / 843 Weight 147 lb 7 oz Narrative: Patient appears comfortable lying in bed. Nasal cannula is in place. He appears chronically ill. Lungs have poor aeration. Heart has a regular rate and rhythm. Abdomen is soft and nontender. Rectal exam reveals prominent stool within the rectal vault. Stool is a variable consistency but some of it is certainly harder. Rectal exam was not difficult but patient complained of significant pain with exam. Results Labs on day of discharge: Labs from last 24 hours 03/02/19 03/02/19 03/02/19 06:00 01:45 00:17 WBC 11.2 H D RBC 3.81 L Hgb 12.0 L D Hct 35.3 L MCV 92.5 MCH 31.3 H MCHC 33.8 RDW 14.1 Plt Count 306 D MPV 7.0 L Neut % (Auto) 84.0 H Lymph % (Auto) 10.7 [place] % (Auto) 3.2 Eos % (Auto) 1.8 Baso % (Auto) 0.2 Neut # (Auto) 9.4 H Lymph # (Auto) 1.2 [place] # (Auto) 0.4 Eos # (Auto) 0.2 Baso # (Auto) 0.0 Total Counted Neutrophils % (Manual) Lymphocytes % (Manual) Monocytes % (Manual) Eosinophils % (Manual) Platelet Estimate Anisocytosis Sodium Potassium Chloride Carbon Dioxide Anion Gap BUN Creatinine Estimated Creat Clear Estimated GFR Est GFR ( Amer) Glucose POC Glucose 175 H Lactate Calcium Total Bilirubin AST ALT Alkaline Phosphatase Total Protein Albumin Globulin Albumin/Globulin Ratio Amylase Lipase Urine Color Urine Appearance Urine pH Ur Specific [place] Urine Protein Urine Glucose (UA) Urine Ketones Urine Blood Urine Nitrate Urine Bilirubin Urine Urobilinogen Ur Leukocyte Esterase Urine WBC Ur Squamous Epith Cells Urine Bacteria Stl Aeromonas (PCR) Not detected Stl C. cayetanensis PCR Not detected Stool Rotavirus (PCR) Not detected Stl Adenov F 40/41 PCR Not detected Stool Astrovirus (PCR) Not detected Stool Campylobacter PCR Not detected Stl C.difficile Tox PCR Not detected Stool Cryptosporidium PCR Not detected Stl E.coli Shiga Tox PCR Not detected Stool E coli O157 PCR Not detected Stl Enterotoxigenic E PCR Not detected Stool EPEC (PCR) Not detected Stool EAEC (PCR) Not detected Stl E. histolytica PCR Not detected Stool Giardia Lamblia PCR Not detected Stool Salmonella PCR Not detected Stool Sapovirus (PCR) Not detected Stl P. shigelloides PCR Not detected Stl Shigella/EIEC PCR Not detected St Y.enterocolitica PCR Not detected Stool Vibrio (PCR) Not detected Stl Vibrio cholerae PCR Not detected Stl Norovirus GI/GII PCR Not detected 03/02/19 03/01/19 03/01/19 00:10 23:45 21:45 WBC RBC Hgb Hct MCV MCH MCHC RDW Plt Count MPV Neut % (Auto) Lymph % (Auto) [place] % (Auto) Eos % (Auto) Baso % (Auto) Neut # (Auto) Lymph # (Auto) [place] # (Auto) Eos # (Auto) Baso # (Auto) Total Counted Neutrophils % (Manual) Lymphocytes % (Manual) Monocytes % (Manual) Eosinophils % (Manual) Platelet Estimate Anisocytosis Sodium 132 L Potassium 3.7 Chloride 98 Carbon Dioxide 26 Anion Gap 11.7 BUN 15 Creatinine 0.72 Estimated Creat Clear 69 Estimated GFR 107 Est GFR ( Amer) 130 Glucose 65 L POC Glucose 68 L Lactate 1.1 Calcium 9.0 Total Bilirubin 0.4 AST 19 ALT 30 Alkaline Phosphatase 44 L Total Protein 6.7 Albumin 3.1 L Globulin 3.6 H Albumin/Globulin Ratio 0.9 L Amylase 64 Lipase 118 Urine Color Urine Appearance Urine pH Ur Specific [place] Urine Protein Urine Glucose (UA) Urine Ketones Urine Blood Urine Nitrate Urine Bilirubin Urine Urobilinogen Ur Leukocyte Esterase Urine WBC Ur Squamous Epith Cells Urine Bacteria Stl Aeromonas (PCR) Stl C. cayetanensis PCR Stool Rotavirus (PCR) Stl Adenov F PCR Stool Astrovirus (PCR) Stool Campylobacter PCR Stl C.difficile Tox PCR Stool Cryptosporidium PCR Stl E.coli Shiga Tox PCR Stool E coli O157 PCR Stl Enterotoxigenic E PCR Stool EPEC (PCR) Stool EAEC (PCR) Stl E. histolytica PCR Stool Giardia Lamblia PCR Stool Salmonella PCR Stool Sapovirus (PCR) Stl P. shigelloides PCR Stl Shigella/EIEC PCR St Y.enterocolitica PCR Stool Vibrio (PCR) Stl Vibrio cholerae PCR Stl Norovirus GI/GII PCR 03/01/19 03/01/19 21:45 21:35 WBC 16.6 H RBC 4.43 L Hgb 13.8 L Hct 41.0 L MCV 92.4 MCH 31.0 MCHC 33.6 RDW 14.0 Plt Count 410 MPV 6.7 L Neut % (Auto) 83.6 H Lymph % (Auto) 10.5 [place] % (Auto) 2.8 Eos % (Auto) 2.9 Baso % (Auto) 0.3 Neut # (Auto) 13.9 H Lymph # (Auto) 1.7 [place] # (Auto) 0.5 Eos # (Auto) 0.5 H Baso # (Auto) 0.0 Total Counted 100 Neutrophils % (Manual) 86 H Lymphocytes % (Manual) 7 L Monocytes % (Manual) 3 Eosinophils % (Manual) 4 H Platelet Estimate Normal Anisocytosis 1+ Sodium Potassium Chloride Carbon Dioxide Anion Gap BUN Creatinine Estimated Creat Clear Estimated GFR Est GFR ( Amer) Glucose POC Glucose Lactate Calcium Total Bilirubin AST ALT Alkaline Phosphatase Total Protein Albumin Globulin Albumin/Globulin Ratio Amylase Lipase Urine Color Yellow Urine Appearance Clear Urine pH 6.5 Ur Specific [place] 1.020 Urine Protein Negative Urine Glucose (UA) Negative Urine Ketones Negative Urine Blood Negative Urine Nitrate Negative Urine Bilirubin Negative Urine Urobilinogen 0.2 Ur Leukocyte Esterase Negative Urine WBC 3-5 Ur Squamous Epith Cells 3-5 Urine Bacteria 1+ Stl Aeromonas (PCR) Stl C. cayetanensis PCR Stool Rotavirus (PCR) Stl Adenov F 40/41 PCR Stool Astrovirus (PCR) Stool Campylobacter PCR Stl C.difficile Tox PCR Stool Cryptosporidium PCR Stl E.coli Shiga Tox PCR Stool E coli O157 PCR Stl Enterotoxigenic E PCR Stool EPEC (PCR) Stool EAEC (PCR) Stl E. histolytica PCR Stool Giardia Lamblia PCR Stool Salmonella PCR Stool Sapovirus (PCR) Stl P. shigelloides PCR Stl Shigella/EIEC PCR St Y.enterocolitica PCR Stool Vibrio (PCR) Stl Vibrio cholerae PCR Stl Norovirus GI/GII PCR Discharge Medications - Medications for Discharge Home Medication List at Discharge: No Action Metformin HCl 850 mg PO BID Fluticasone/Umeclidin/Vilanter [Trelegy Ellipta 100-62.5-25] 1 puff INHALATION DAILY Fenofibrate Nanocrystallized [Fenofibrate] 145 mg PO DAILY Albuterol Sulfate [Albuterol HFA Inhaler] 2 puff INHALATION Q4HP PRN PRN Reason: Shortness Of Breath Aspirin [Aspirin 81mg chewable tab] 81 mg PO DAILY Amlodipine Besylate 10 mg PO HS Multivitamin [Multivitamins] 1 each PO DAILY Calcium Carbonate/Vitamin D3 [Calcium 1,000 + D3 Caplet] 1 each PO DAILY Budesonide 2 ml IH BIDP PRN PRN Reason: SOA Pravastatin Sodium [Pravachol 20mg Tablet] 20 mg PO HS Glimepiride [Amaryl 2mg tablet] 2 mg PO DAILY Megestrol Acetate [Megestrol Acetate 40mg Tablet] 40 mg PO DAILY [place]-3 Fatty Acids/Fish Oil [[place] 3 1,000 mg Softgel] 1 each PO DAILY
--- NOTE | 2019-03-02 07:49 | History & Physical Report ---
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 Patient tells me his last urination had been the morning of the day he came to the hospital and his last bowel movement had been 2 to 3 days prior. He has a history of prostate cancer. He generally takes MiraLAX daily to aid with bowel movements but admit he had run out of this and has not taken the medicine in several days. He did try an enema at home which he states caused severe pain patient underwent evaluation and a CT scan suggested possible proctitis as well as fecal impaction. Patient was also hypoglycemic on presentation. Because of an elevated white count decision was made to admit the patient and place him on IV antibiotics. On the CT scan no diverticulitis was seen. [facility] History Medical History: Reports:: Cancer (Prostate), Congestive Heart Failure, Chronic Obstructive Pulmonary Disease (COPD), Diabetes Mellitus Type 2, Hyperlipidemia, Hypertension Denies:: Diabetes Mellitus Type 1, MRSA *Have you ever received a pneumonia vaccine?: Yes *Have you received a flu vaccine this season?: Yes Comment:: Interstitial pulmonary fibrosis Other Surgeries: Yes: Colonoscopy, Hernia Repair, Other (retina sx) Amputation: No - *Social History Educational Level: Attended High School Smoking Status: Current some day smoker Tobacco Type: smokeless tobacco # Packs/Day (cigarettes): 0 Alcohol Intake: current Alcohol Intake Frequency:: holidays/special occasions only *Occupational Status:: retired Housing: house Household Members: spouse, family *Travel in the last 8 weeks: None - Psychiatric History Expresses thoughts of harming self/others: None Suicide Plan Description: No Plan Family Hx:: Cancer, Heart Attack, Stroke Review of Systems - Review of Systems Review of systems:: pertinent systems reviewed and negative unless documented below - Constitutional Denies body ache(s), Denies chills - *Cardiovascular Reports excessive sweating, Reports shortness of breath, Reports shortness of breath with activity, Denies chest pain, Denies chest pain at rest - *Respiratory Reports chest congestion, Reports cough, Reports shortness of breath, Reports shortness of breath with activity, Denies change in phlegm color - *Gastrointestinal Reports change in bowel habits, Reports change in stools, Reports constipation, Reports cramping, Denies belching, Denies bloating, Denies coffee ground vomit, Denies heartburn Meds Home Medications Medication Instructions Recorded Confirmed Type Albuterol Sulfate [Albuterol HFA 2 puff INHALATION Q4HP PRN 08/13/18 03/02/19 History Inhaler] Fenofibrate Nanocrystallized 145 mg PO DAILY 08/13/18 03/02/19 History [Fenofibrate] Fluticasone/Umeclidin/Vilanter 1 puff INHALATION DAILY 08/13/18 03/02/19 History [Trelegy Ellipta 100-62.5-25] Glimepiride [Amaryl 2mg tablet] 2 mg PO DAILY 08/13/18 03/02/19 History Metformin HCl 850 mg PO BID 08/13/18 03/02/19 History Pravastatin Sodium [Pravachol 20mg 20 mg PO HS 08/13/18 03/02/19 History Tablet] Amlodipine Besylate 10 mg PO HS 03/01/19 03/02/19 History Aspirin [Aspirin 81mg chewable 81 mg PO DAILY 03/01/19 03/02/19 History tab] Megestrol Acetate [Megestrol 40 mg PO DAILY 03/01/19 03/02/19 History Acetate 40mg Tablet] Calcium Carbonate/Vitamin D3 1 each PO DAILY 03/02/19 03/02/19 History [Calcium 1,000 + D3 Caplet] Multivitamin [Multivitamins] 1 each PO DAILY 03/02/19 03/02/19 History [place]-3 Fatty Acids/Fish Oil 1 each PO DAILY 03/02/19 03/02/19 History [[place] 3 1,000 mg Softgel] Allergies Allergy/AdvReac Type Severity Reaction Status Date / Time codeine [CODEINE] Allergy Unknown NA-NAUSEA/V Verified 03/02/19 00:34 OMITING Exam Vital signs and Labs for Last 24 Hours: Temp Pulse Resp BP Pulse Ox 98.3 F 91 H 18 120/72 94 L 03/02/19 04:26 03/02/19 04:26 03/02/19 04:26 03/02/19 04:26 03/02/19 04:26 Laboratory Results - last 24 hr 03/01/19 21:35: Urine Color Yellow, Urine Appearance Clear, Urine pH 6.5, Ur Specific [place] 1.020, Urine Protein Negative, Urine Glucose (UA) Negative, Urine Ketones Negative, Urine Blood Negative, Urine Nitrate Negative, Urine Bilirubin Negative, Urine Urobilinogen 0.2, Ur Leukocyte Esterase Negative, Urine WBC 3-5, Ur Squamous Epith Cells 3-5, Urine Bacteria 1+ 03/01/19 21:45: WBC 16.6 H, RBC 4.43 L, Hgb 13.8 L, Hct 41.0 L, MCV 92.4, MCH 31.0, MCHC 33.6, RDW 14.0, Plt Count 410, MPV 6.7 L, Neut % (Auto) 83.6 H, Lymph % (Auto) 10.5, [place] % (Auto) 2.8, Eos % (Auto) 2.9, Baso % (Auto) 0.3, Neut # (Auto) 13.9 H, Lymph # (Auto) 1.7, [place] # (Auto) 0.5, Eos # (Auto) 0.5 H, Baso # (Auto) 0.0, Total Counted 100, Neutrophils % (Manual) 86 H, Lymphocytes % (Manual) 7 L, Monocytes % (Manual) 3, Eosinophils % (Manual) 4 H, Platelet Estimate Normal, Anisocytosis 1+ 03/01/19 21:45: Sodium 132 L, Potassium 3.7, Chloride 98, Carbon Dioxide 26, Anion Gap 11.7, BUN 15, Creatinine 0.72, Estimated Creat Clear 69, Estimated GFR 107, Est GFR ( Amer) 130, Glucose 65 L, Calcium 9.0, Total Bilirubin 0.4, AST 19, ALT 30, Alkaline Phosphatase 44 L, Total Protein 6.7, Albumin 3.1 L , Globulin 3.6 H, Albumin/Globulin Ratio 0.9 L, Amylase 64, Lipase 118 03/01/19 23:45: POC Glucose 68 L 03/02/19 00:10: Lactate 1.1 03/02/19 00:17: POC Glucose 175 H 03/02/19 01:45: Stl Aeromonas (PCR) Not detected, Stl C. cayetanensis PCR Not detected, Stool Rotavirus (PCR) Not detected, Stl Adenov F 40/41 PCR Not detected, Stool Astrovirus (PCR) Not detected, Stool Campylobacter PCR Not detected, Stl C.difficile Tox PCR Not detected, Stool Cryptosporidium PCR Not detected, Stl E.coli Shiga Tox PCR Not detected, Stool E coli O157 PCR Not detected, Stl Enterotoxigenic E PCR Not detected, Stool EPEC (PCR) Not detected, Stool EAEC (PCR) Not detected, Stl E. histolytica PCR Not detected, Stool Giardia Lamblia PCR Not detected, Stool Salmonella PCR Not detected, Stool Sapovirus (PCR) Not detected, Stl P. shigelloides PCR Not detected, Stl Shigella/EIEC PCR Not detected, St Y.enterocolitica PCR Not detected, Stool Vibrio (PCR) Not detected, Stl Vibrio cholerae PCR Not detected, Stl Norovirus GI/GII PCR Not detected 03/02/19 06:00: WBC 11.2 H D, RBC 3.81 L, Hgb 12.0 L D, Hct 35.3 L, MCV 92.5, MCH 31.3 H, MCHC 33.8, RDW 14.1, Plt Count 306 D, MPV 7.0 L, Neut % (Auto) 84.0 H, Lymph % (Auto) 10.7, [place] % (Auto) 3.2, Eos % (Auto) 1.8, Baso % (Auto) 0.2, Neut # (Auto) 9.4 H, Lymph # (Auto) 1.2, [place] # (Auto) 0.4, Eos # (Auto) 0.2, Baso # (Auto) 0.0 I & O for Last 24 hours: Intake & Output 02/27/19 02/28/19 03/01/19 03/02/19 11:59 11:59 11:59 11:59 Intake Total 1593 / 1593 Output Total 750 / 750 Balance 843 / 843 Weight 147 lb 7 oz Narrative: Patient appears comfortable in bed. He is wearing nasal cannula to provide oxygen. He appears chronically ill. Oropharynx is moist. Neck is without lymphadenopathy. Lungs have poor aeration. Heart has a regular rate and rhythm. Abdomen is soft and nondistended. Rectal examination reveals brown stool of varying consistency within the rectal vault. Some of the stool is hard. Rectal exam was quite painful for the patient Assessment and Plan (1) Fecal impaction in rectum Current visit: Yes Status: Acute Category: Medical Code(s): K56.41 - Fecal impaction (2) COPD (chronic obstructive pulmonary disease) Current visit: Yes Status: Acute Category: Medical Code(s): J44.9 - Chronic obstructive pulmonary disease, unspecified (3) Interstitial pulmonary fibrosis Current visit: No Status: Acute Category: Medical Code(s): J84.10 - Pulmonary fibrosis, unspecified - Assessment and plan all Dx Assessment and Plan for all problems:: Discussion was had with the patient regarding the best way to approach his fecal impaction. Patient opted for enemas and suppositories to try to disimpact him versus manual disimpaction. We will save manual disimpaction as last resort as a minor rectal exam cause significant pain. I believe once his fecal disimpaction occurs urinary habits will improve.
--- NOTE | 2019-03-02 12:06 | Pharmacy Consult Notes ---
[facility] Pharmacy VTE Monitoring - Patient Demographics Admission date: 03/02/19 Report Date: 03/02/19 Time: 12:06 Allergies/Adverse Reactions: Patient Allergies codeine [CODEINE] Allergy (Unknown, Verified 03/02/19 00:34) NA-NAUSEA/VOMITING Height: 1.65 m Weight: 66.877 kg Patient Problems: Current Active Problems (Updated 03/02/19 @ 07:49 by Mo Vasquez MD) COPD (chronic obstructive pulmonary disease) (Acute) Proctitis (Acute) Fecal impaction in rectum (Acute) - VTE Risk Labs: VTE Related Lab Results Hgb 12.0 g/dL (14.1-18.0) L D 03/02/19 06:00 Hct 35.3 % (42.0-52.0) L 03/02/19 06:00 Plt Count 306 K/mm3 (142-424) D 03/02/19 06:00 BUN 8 mg/dL (7-18) D 03/02/19 06:00 Creatinine 0.57 mg/dL (0.70-1.30) L D 03/02/19 06:00 Estimated Creat Clear 63 mL/min (50-200) 03/02/19 06:00 Was VTE Risk Assessment Performed: Yes VTE Score: 4 VTE Risk Level: Low Risk - Prophylaxis Types of VTE Prophylaxis: TEDS Knee High Location of Applied Device: Bilateral Lower Extremeties (ZONIA HOSE ORDER PLACED)
--- NOTE | 2019-03-03 07:23 | Progress Note ---
Internal Medicine - PN: Subj *Date: 03/03/19 *Time: 07:21 Interval history: Patient had a large bowel movement yesterday afternoon with subsequent smaller bowel movements throughout the day and evening. Once he had a satisfying bowel movement his rectal pain resolved. At that point Graham catheter was removed and nursing staff reports no difficulty with urinating since then. Patient has no complaints of rectal or abdominal pain this morning. Exam Vital signs and Labs for Last 24 Hours: Temp Pulse Resp BP Pulse Ox 98.3 F 94 H 20 132/70 90 L 03/03/19 04:00 03/03/19 04:00 03/03/19 04:00 03/03/19 04:00 03/03/19 04:00 Laboratory Results - last 24 hr 03/02/19 06:00: WBC 11.2 H D, RBC 3.81 L, Hgb 12.0 L D, Hct 35.3 L, MCV 92.5, MCH 31.3 H, MCHC 33.8, RDW 14.1, Plt Count 306 D, MPV 7.0 L, Neut % (Auto) 84.0 H, Lymph % (Auto) 10.7, [place] % (Auto) 3.2, Eos % (Auto) 1.8, Baso % (Auto) 0.2, Neut # (Auto) 9.4 H, Lymph # (Auto) 1.2, [place] # (Auto) 0.4, Eos # (Auto) 0.2, Baso # (Auto) 0.0 03/02/19 06:00: Sodium 130 L, Potassium 3.5, Chloride 98, Carbon Dioxide 23, Anion Gap 12.5, BUN 8 D, Creatinine 0.57 L D, Estimated Creat Clear 63, Estimated GFR 141, Est GFR ( Amer) 170 D, Glucose 98 D, Calcium 8.1 L 03/02/19 16:34: POC Glucose 132 H 03/02/19 20:24: POC Glucose 160 H 03/03/19 05:54: POC Glucose 98 I & O for Last 24 hours: Intake & Output 02/28/19 03/01/19 03/02/19 03/03/19 11:59 11:59 11:59 11:59 Intake Total 1833 / 1833 360 / 360 Output Total 750 / 750 1500 / 1500 Balance 1083 / 1083 -1140 / -1140 Weight 147 lb 7 oz 149 lb 8 oz Narrative: He is in no distress. Heart has a regular rate and rhythm. Lungs have fair aeration. Abdomen is soft and nontender Assessment and Plan (1) Fecal impaction in rectum Current visit: Yes Status: Acute Category: Medical Code(s): K56.41 - Fecal impaction (2) COPD (chronic obstructive pulmonary disease) Current visit: Yes Status: Acute Category: Medical Code(s): J44.9 - Chronic obstructive pulmonary disease, unspecified (3) Interstitial pulmonary fibrosis Current visit: No Status: Acute Category: Medical Code(s): J84.10 - Pulmonary fibrosis, unspecified - Assessment and plan all Dx Assessment and Plan for all problems:: Patient will be discharged home with plan to continue daily use of MiraLAX
--- NOTE | 2019-03-03 07:27 | Discharge Summary ---
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 Patient tells me his last urination had been the morning of the day he came to the hospital and his last bowel movement had been 2 to 3 days prior. He has a history of prostate cancer. He generally takes MiraLAX daily to aid with bowel movements but admit he had run out of this and has not taken the medicine in several days. He did try an enema at home which he states caused severe pain patient underwent evaluation and a CT scan suggested possible proctitis as well as fecal impaction. Patient was also hypoglycemic on presentation. Because of an elevated white count de cision was made to admit the patient and place him on IV antibiotics. On the CT scan no diverticulitis was seen. Hospital Course Hospital Course: Patient was admitted and it was felt that his fecal impaction was the primary problem. Discussion was had with the patient about manual disimpaction versus use of enemas and cathartics. Patient opted for the latter. Patient was given a fleets enema followed by Dulcolax suppositories which resulted in a large bowel movement. After patient's initial large bowel movement his rectal pain resolved. Patient had subsequent smaller bowel movements throughout the rest of the day on March 02. At around 2 PM his Graham catheter was removed and patient was observed overnight. He did not have any recurrence of pain. He had further smaller bowel movements. He was able to urinate without difficulties. On the morning of March 03 he was discharged home. A single aerobic blood culture grew a gram positive cocci. As patient had no symptomsm of infection it was felt that this was a contaminant. Patient was given Rocephin 1 gm prior to discharge and cultures results will be followed Objective Vital signs: Temp Pulse Resp BP Pulse Ox 98.3 F 94 H 20 132/70 90 L 03/03/19 04:00 03/03/19 04:00 03/03/19 04:00 03/03/19 04:00 03/03/19 04:00 Results Labs on day of discharge: Labs from last 24 hours 03/03/19 03/02/19 03/02/19 05:54 20:24 16:34 WBC RBC Hgb Hct MCV MCH MCHC RDW Plt Count MPV Neut % (Auto) Lymph % (Auto) [place] % (Auto) Eos % (Auto) Baso % (Auto) Neut # (Auto) Lymph # (Auto) [place] # (Auto) Eos # (Auto) Baso # (Auto) Sodium Potassium Chloride Carbon Dioxide Anion Gap BUN Creatinine Estimated Creat Clear Estimated GFR Est GFR ( Amer) Glucose POC Glucose 98 160 H 132 H Calcium 03/02/19 03/02/19 06:00 06:00 WBC 11.2 H D RBC 3.81 L Hgb 12.0 L D Hct 35.3 L MCV 92.5 MCH 31.3 H MCHC 33.8 RDW 14.1 Plt Count 306 D MPV 7.0 L Neut % (Auto) 84.0 H Lymph % (Auto) 10.7 [place] % (Auto) 3.2 Eos % (Auto) 1.8 Baso % (Auto) 0.2 Neut # (Auto) 9.4 H Lymph # (Auto) 1.2 [place] # (Auto) 0.4 Eos # (Auto) 0.2 Baso # (Auto) 0.0 Sodium 130 L Potassium 3.5 Chloride 98 Carbon Dioxide 23 Anion Gap 12.5 BUN 8 D Creatinine 0.57 L D Estimated Creat Clear 63 Estimated GFR 141 Est GFR ( Amer) 170 D Glucose 98 D POC Glucose Calcium 8.1 L DS: Diagnosis - Discharge Diagnosis (1) Fecal impaction in rectum Status: Acute (2) COPD (chronic obstructive pulmonary disease) Status: Chronic (3) Interstitial pulmonary fibrosis Status: Chronic Discharge Plan - Patient Discharge Instructions ACTIVITY: Continue current activity DIET: continue same diet Patient Instructions: DI for Chronic Obstructive Pulmonary Disease, DI for Fecal Impaction - Follow up Plan Disposition: Home, Self-Custodial Medications: Home Medications Medication Instructions Recorded Confirmed Type Albuterol Sulfate [Albuterol HFA 2 puff INHALATION Q4HP PRN 08/13/18 03/04/19 History Inhaler] Fenofibrate Nanocrystallized 145 mg PO DAILY 08/13/18 03/04/19 History [Fenofibrate] Metformin HCl 850 mg PO BID 08/13/18 03/04/19 History Pravastatin Sodium [Pravachol 20mg 20 mg PO HS 08/13/18 03/04/19 History Tablet] Amlodipine Besylate 10 mg PO HS 03/01/19 03/04/19 History Aspirin [Aspirin 81mg chewable 81 mg PO DAILY 03/01/19 03/04/19 History tab] Megestrol Acetate [Megestrol 40 mg PO DAILY 03/01/19 03/04/19 History Acetate 40mg Tablet] Budesonide 2 ml IH DAILY 03/02/19 03/04/19 History Calcium Carbonate/Vitamin D3 1 each PO DAILY 03/02/19 03/04/19 History [Calcium 1,000 + D3 Caplet] Multivitamin [Multivitamins] 1 each PO DAILY 03/02/19 03/04/19 History [place]-3 Fatty Acids/Fish Oil 1 each PO DAILY 03/02/19 03/04/19 History [[place] 3 1,000 mg Softgel] Citalopram Hydrobromide [Celexa 10 mg PO DAILY 03/04/19 03/04/19 History 10mg Tablet] Glimepiride [Amaryl] 2 mg PO DAILY 03/04/19 03/04/19 History Nintedanib Esylate [Ofev] 150 mg PO BID 03/04/19 03/04/19 History Ondansetron HCl [Ondansetron 8mg 8 mg PO Q8HP PRN 03/04/19 03/04/19 History Tablet] Polyethylene Glycol 3350 [Miralax 17 gm PO DAILY 03/04/19 03/04/19 History Powder] Sulfamethoxazole/Trimethoprim 1 tab PO DAILY 03/04/19 03/04/19 History [Sulfamethoxazole-Tmp Ds Tablet] Tiotropium Br/Olodaterol HCl 2 puffs IH DAILY 03/04/19 03/04/19 History [Stiolto Respimat Inhal [place]] predniSONE [Deltasone 20mg 20 mg PO DAILY 03/04/19 03/04/19 History tablet] Prescriptions/Medication Reconciliation: Continued Metformin HCl 850 mg PO BID Fenofibrate Nanocrystallized [Fenofibrate] 145 mg PO DAILY Albuterol Sulfate [Albuterol HFA Inhaler] 2 puff INHALATION Q4HP PRN PRN Reason: Shortness Of Breath Aspirin [Aspirin 81mg chewable tab] 81 mg PO DAILY Amlodipine Besylate 10 mg PO HS Multivitamin [Multivitamins] 1 each PO DAILY Calcium Carbonate/Vitamin D3 [Calcium 1,000 + D3 Caplet] 1 each PO DAILY Budesonide 2 ml IH DAILY Pravastatin Sodium [Pravachol 20mg Tablet] 20 mg PO HS Megestrol Acetate [Megestrol Acetate 40mg Tablet] 40 mg PO DAILY [place]-3 Fatty Acids/Fish Oil [[place] 3 1,000 mg Softgel] 1 each PO DAILY Discontinued Glimepiride [Amaryl 2mg tablet] 2 mg PO DAILY No Action Citalopram Hydrobromide [Celexa 10mg Tablet] 10 mg PO DAILY Glimepiride [Amaryl] 2 mg PO DAILY Sulfamethoxazole/Trimethoprim [Sulfamethoxazole-Tmp Ds Tablet] 1 tab PO DAILY Polyethylene Glycol 3350 [Miralax Powder] 17 gm PO DAILY Tiotropium Br/Olodaterol HCl [Stiolto Respimat Inhal [place]] 2 puffs IH DAILY predniSONE [Deltasone 20mg tablet] 20 mg PO DAILY Nintedanib Esylate [Ofev] 150 mg PO BID Ondansetron HCl [Ondansetron 8mg Tablet] 8 mg PO Q8HP PRN PRN Reason: Nausea
== END 2019-03-03 12:32 | disposition home or self-care (01) ==
LOC: 2ND 21:25 → ER 21:25 → 2ND 03-02 00:25
PROVIDERS: ADMIT Internal Medicine Adolescent Medicine; ATTEND Family Medicine
DX: K56.41 Fecal impaction
CPT/HCPCS: 36415; 74176; 80048; 80053; 81001; 82150; 82962; 83605; 83690; 85007; 85025; 87040; 87077; 87506; 94640; 94761; 96365; 96366; 96367; 96375; 99285; G0378; J1956; J2405

== ENCOUNTER 2019-03-03 21:23 | Inpatient (IN) ==
[2019-03-03 21:36] LABS: ABG Base Excess -7.5 mmol/L (-2.4-2.3); ABG HCO3 18.5 mmhg (22.0-26.0); ABG Oxygen Saturation 96 % (90-100); ABG PCO2 36.3 mmhg (35.0-45.0); ABG PH 7.33 mmol/L (7.35-7.45); ABG PO2 85.3 mmhg (80-100); ABG TCO2 19.6 mmhg (23-27)
[2019-03-03 21:37] LABS: Allen's Test Y; Oxygen 100 %
[2019-03-03 21:53] LABS: Basophils % 0.2 % (0.1-2.0); Eosinophils % 0.3 % (0.1-12.0); Hematocrit 37.7 % (42.0-52.0); Hemoglobin 12.3 g/dL (14.1-18.0); Lymphocytes % 11.3 % (10-50); Mean Corpuscular HGB Conc 32.5 g/dL (31.8-35.4); Mean Corpuscular Hemoglobin 31.2 pg (27.0-31.2); Mean Corpuscular Volume 95.9 fl (80-94); Mean Platelet Volume 7.1 fl (7.4-10.4); Monocytes # 0.6 K/mm3 (0.1-1.0); Monocytes % 3.2 % (1.7-9.3); Neutrophils # 14.8 K/mm3 (1.8-7.8); Neutrophils % 85.1 % (37.0-80.0); Platelet Count 378 K/mm3 (142-424); Red Blood Count 3.93 M/mm3 (4.60-6.20); Red Cell Distribution Width 13.9 % (11.5-17.5); White Blood Count 17.4 K/mm3 (4.8-10.8)
[2019-03-03 22:15] LABS: Lymphocytes % 9 % (10-50); Macrocytosis 1+; Monocytes % 3 % (2-9); Neutrophils % 80 % (42-76); Rouleaux 2+; Total Cells Counted 100
--- NOTE | 2019-03-03 22:22 | Emergency Department Note ---
ED Disposition Clinical Impression: Non-STEMI (non-ST elevated myocardial infarction), Acute exacerbation of chronic obstructive airways disease, Hyponatremia Disposition: Admitted as Observation Condition on Discharge: Good - Critical Care Critical Care Time: No Attestation: On 03/03/19, the high probability of a clinically significant, sudden or life threatening deterioration of the following system(s) required my full and direct attention, intervention and personal management. The time I documented below is in addition to time spent performing reported procedures but includes the following listed in this critical care notation. Medical Decision Making - Medical Records Medical records reviewed: Yes: I reviewed the patient's medical records. - Jl Inquiry Pt receiving controlled substance: No Vital Signs: 03/03/19 21:24 03/03/19 21:40 03/03/19 21:45 Temperature 98.2 F 100.0 F H Temperature Source Oral Rectal Pulse Rate [Right Radial] 140 H 144 H Respiratory Rate 25 H 28 H Blood Pressure [Right Arm] 120/80 116/64 Blood Pressure Mean [Right Arm] 93 81 Blood Pressure Source [Right Arm] Blood Pressure Position [Right Arm] 02 Sat by Pulse Oximetry 48 L 95 Oxygen Delivery Method Nasal Cannula Non-Rebreather Oxygen Flow Rate (LPM) 6 15 03/03/19 22:22 03/03/19 22:36 03/04/19 00:47 Temperature Temperature Source Pulse Rate [Right Radial] 113 H 128 H 118 H Respiratory Rate 24 29 H 26 H Blood Pressure [Right Arm] 116/72 130/74 131/82 Blood Pressure Mean [Right Arm] 86 92 98 Blood Pressure Source [Right Arm] Automatic Cuff Blood Pressure Position [Right Arm] Sitting 02 Sat by Pulse Oximetry 98 84 L 92 L Oxygen Delivery Method Non-Rebreather Vapotherm Vapotherm Oxygen Flow Rate (LPM) 15 - Lab Data Lab results reviewed: Yes: I reviewed the patient's lab results. Lab Results 03/03/19 21:35: Specimen Source R/r, O2 % 100, ABG pH 7.33 L, ABG pCO2 36.3, ABG pO2 85.3, ABG HCO3 18.5 L, ABG Total CO2 19.6 L, ABG O2 Saturation 96, ABG Base Excess -7.5 L, Deondre Test Y 03/03/19 21:37: WBC 17.4 H D, RBC 3.93 L, Hgb 12.3 L, Hct 37.7 L, MCV 95.9 H, MCH 31.2, MCHC 32.5, RDW 13.9, Plt Count 378, MPV 7.1 L, Neut % (Auto) 85.1 H, Lymph % (Auto) 11.3, [place] % (Auto) 3.2, Eos % (Auto) 0.3, Baso % (Auto) 0.2, Neut # (Auto) 14.8 H, Lymph # (Auto) 2.0, [place] # (Auto) 0.6, Eos # (Auto) 0.0, Baso # (Auto) 0.0, Total Counted 100, Neutrophils % (Manual) 80 H, Band Neutrophils % 8.0, Lymphocytes % (Manual) 9 L, Monocytes % (Manual) 3, Platelet Estimate Normal, Macrocytosis 1+, Rouleaux 2+ 03/03/19 21:37: Sodium 126 L, Potassium 3.9, Chloride 91 L, Carbon Dioxide 21, Anion Gap 17.9 H, BUN 7, Creatinine 0.85 D, Estimated Creat Clear 62, Estimated GFR 89, Est GFR ( Amer) 107 D, Glucose 179 H, Calcium 8.7, Total Bilirubin 0.5, AST 29 D, ALT 28, Alkaline Phosphatase 63, Troponin I 2.98 H, Total Protein 6.8, Albumin 2.7 L, Globulin 4.1 H, Albumin/Globulin Ratio 0.7 L 03/03/19 21:37: Lactate 2.5 H 03/04/19 00:10: Influenza Type A Ag Negative, Influenza Type B Ag Negative Result diagrams: 03/03/19 21:37 03/03/19 21:37 Orders (Tests/Meds): ED MEDICATIONS Generic Name Dose Route Start Last Admin Trade Name Freq PRN Reason Stop Dose Admin Ceftriaxone Sodium 1 gm/ 50 mls @ 100 mls/hr 03/04/19 01:39 03/04/19 01:57 Sodium Chloride IV 03/04/19 02:08 100 mls/hr ONCE ONE Administration Protocol Ioversol 70 ml 03/04/19 01:27 03/04/19 01:29 Rad-Optiray 350 100ml Vial IV 03/04/19 01:28 70 ml ONCE ONE Administration Protocol Sodium Chloride 2 ml 03/03/19 22:28 Saline Flush 10ml Syringe IV 05/28/19 22:27 NEEDED PRN to Dilute Lorazepam inj Sodium Chloride 10 ml 03/04/19 01:27 03/04/19 01:29 Rad-Saline Flush 10ml Syringe IV 03/04/19 01:28 10 ml ONCE ONE Administration Sodium Chloride 40 ml 03/04/19 01:27 03/04/19 01:29 Rad-Ns 50ml Vial IV 03/04/19 01:28 40 ml ONCE ONE Administration Discontinued Medications Generic Name Dose Route Start Last Admin Trade Name Freq PRN Reason Stop Dose Admin Lorazepam 0.5 mg 03/03/19 22:28 03/03/19 22:32 Ativan 2mg/Ml Vial IV 03/03/19 22:29 0.5 mg ONCE ONE Administration Methylprednisolone Sodium Succinate 125 mg 03/03/19 21:34 03/03/19 21:38 Solu-Medrol 125mg/2ml Vial IV 03/03/19 21:35 125 mg ONCE ONE Administration ORDERS Category Date Time Status CT Chest w/PE protocol [CT angio chest] Stat Cat Scan 03/03/19 22:47 Taken XR chest portable Stat Exams 03/03/19 21:33 Taken Blood Culture Stat Micro 03/03/19 21:35 Received ABG [Arterial Blood Gas] Stat RT 03/03/19 21:34 Ordered - Radiology Data #1 Image(s): Chest Image Reviewed: Yes I reviewed the patient's radiology image Preliminary Findings: Abnormal (pul fibrosis) - CT Data CT Scan: Chest Time Received: 02:[address] Reviewed: Yes: I have viewed the radiologist's interpretation Preliminary Findings: Abnormal (see report) - ECG Data Tracing #1 Arrhythmias present: sinus tach Ischemic changes: non-specific ST-T wave changes - Physician Consults Physician Consulted: ed Reason -: Admission Additional Consult: alyssa Reason -: Cardiology Eval/Care Resp/SOB HPI - General Chief Complaint: Shortness of Breath/Dyspnea Stated Complaint: short of breath Time Seen by Provider: 03/03/19 21:30 Mode of Arrival: EMS Source of Information: Patient, Relative, EMS, Medical Record Limitations: No Limitations Description of Symptoms (Recalled from ER Triage Doc. by RN): discharged from [facility] today. pt states that his pulse ox was dropping at home. pt states he woke up and it was in the 60s. ems reports sao2 at 70%. pt c/o shortness of breath. - History of Present Illness recent d/c from [facility]- today with progressive sob with no fever or vomiting - has hx of pul fibrosis and on home o2 MD Complaint: shortness of breath Onset (ago): hour(s) Severity: moderate Known history of: COPD Associated symptoms: denies other symptoms Treatment prior to arrival: bronchodilator - Related Data Home oxygen amount: 3 liters Home Medications Medication Instructions Recorded Confirmed Albuterol Sulfate [Albuterol HFA 2 puff INHALATION Q4HP PRN 08/13/18 03/04/19 Inhaler] Fenofibrate Nanocrystallized 145 mg PO DAILY 08/13/18 03/04/19 [Fenofibrate] Fluticasone/Umeclidin/Vilanter 1 puff INHALATION DAILY 08/13/18 03/04/19 [Trelegy Ellipta 100-62.5-25] Metformin HCl 850 mg PO BID 08/13/18 03/04/19 Pravastatin Sodium [Pravachol 20mg 20 mg PO HS 08/13/18 03/04/19 Tablet] Amlodipine Besylate 10 mg PO HS 03/01/19 03/04/19 Aspirin [Aspirin 81mg chewable 81 mg PO DAILY 03/01/19 03/04/19 tab] Megestrol Acetate [Megestrol 40 mg PO DAILY 03/01/19 03/04/19 Acetate 40mg Tablet] Budesonide 2 ml IH BIDP PRN 03/02/19 03/04/19 Calcium Carbonate/Vitamin D3 1 each PO DAILY 03/02/19 03/04/19 [Calcium 1,000 + D3 Caplet] Multivitamin [Multivitamins] 1 each PO DAILY 03/02/19 03/04/19 [place]-3 Fatty Acids/Fish Oil 1 each PO DAILY 03/02/19 03/04/19 [[place] 3 1,000 mg Softgel] Citalopram Hydrobromide [Celexa 10 mg PO DAILY 03/04/19 03/04/19 10mg Tablet] Glimepiride [Amaryl] 2 mg PO DAILY 03/04/19 03/04/19 Polyethylene Glycol 3350 [Miralax 17 gm PO DAILY 03/04/19 03/04/19 Powder] Sulfamethoxazole/Trimethoprim 1 tab PO DAILY 03/04/19 03/04/19 [Sulfamethoxazole-Tmp Ds Tablet] predniSONE [Deltasone 20mg 20 mg PO DAILY 03/04/19 03/04/19 tablet] Allergies Allergy/AdvReac Type Severity Reaction Status Date / Time codeine [CODEINE] Allergy Unknown NA-NAUSEA/V Verified 03/03/19 21:33 OMITING - Well's Criteria PE Score Clinical signs/symptoms of DVT: No PE is #1 diagnosis or equally likely: Yes Heart rate is > 100: Yes Immobile at least 3 days, or surgery in past 4 wks: Yes Previously, obj. diagnosed PE or DVT: No Hemoptysis: No Malignancy w/Rx within 6mo, or palliative: No PE Score: 5 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 I have reviewed the patient's past medical history: Yes Medical History: Reports:: Cancer (Prostate), Congestive Heart Failure, Chronic Obstructive Pulmonary Disease (COPD), Diabetes Mellitus Type 2, Hyperlipidemia, Hypertension Denies:: Diabetes Mellitus Type 1, MRSA Comment: Interstitial pulmonary fibrosis Other Surgeries: Yes: Colonoscopy, Hernia Repair, Other (retina sx) Amputation: No - Social History Smoking Status: Never smoker Tobacco Type: smokeless tobacco # Packs/Day (cigarettes): 0 Alcohol Intake: current Alcohol Intake Frequency:: holidays/special occasions only Occupational Status: retired Housing: house Household Members: spouse, family - Psychiatric History Expresses thoughts of harming self/others: None Suicide Plan Description: No Plan Family Hx:: Cancer, Heart Attack, Stroke ROS Obtained: Yes All systems reviewed & no additional complaints - Constitutional Constitutional: Denies fever(s) - Eyes Eyes: Denies eye discharge - ENT Ears, Nose, Mouth, and Throat: Denies sore throat - Cardiovascular Cardiovascular: Denies chest pain, Reports dyspnea - Respiratory Respiratory: No cough, No coughing up blood - Gastrointestinal Gastrointestingal: Denies: vomiting - Genitourinary Male Genitourinary: Denies hematuria - Integumentary/Breasts Skin/Breast: Denies rash - Neurologic Neurologic: Denies seizure-like activity Physical Exam - General General appearance: alert - Head Head exam: normocephalic - Eye Eye exam: Present: PERRL, EOMI. Absent: scleral icterus - ENT ENT exam: Present: mucous membranes dry - Neck Neck exam: Absent: trachea midline - Respiratory Respiratory exam: Present: other (dec bs bilat ). Absent: respiratory distress - Cardiovascular Cardiovascular exam: Present: regular rate, systolic murmur, +S4 - Abdominal Exam Abdominal exam: Present: soft - Extremities Exam Extremities exam: Present: pedal edema. Absent: calf tenderness - Neurological Exam Neurological exam: Present: alert, CN II-XII intact - Psychiatric Psychiatric exam: Present: anxious - Skin Skin exam: Absent: rash
[2019-03-03 22:24] LABS: Albumin Level 2.7 gm/dL (3.4-5.0); Albumin/Globulin Ratio 0.7 (1.1-1.8); Anion Gap 17.9 mEq/L (5-15); Bilirubin,Total 0.5 mg/dL (0.2-1.0); Calcium 8.7 mg/dL (8.5-10.1); Globulin 4.1 gm/dl (1.3-3.2); Potassium 3.9 mmoL/L (3.5-5.1); Total Protein,Serum 6.8 gm/dL (6.4-8.2)
[2019-03-04 01:38] LABS: ABG HCO3 16.2 mmhg (22.0-26.0); ABG Oxygen Saturation 96 % (90-100); ABG PCO2 28.1 mmhg (35.0-45.0); ABG PH 7.38 mmol/L (7.35-7.45); ABG PO2 85.1 mmhg (80-100); Allen's Test Y; Oxygen 75 %
[2019-03-04 06:49] LABS: Basophils % 0.1 % (0.1-2.0); Eosinophils % 0.1 % (0.1-12.0); Hematocrit 34.2 % (42.0-52.0); Hemoglobin 11.2 g/dL (14.1-18.0); Lymphocytes # 0.5 K/mm3 (0.7-4.5); Lymphocytes % 4.1 % (10-50); Mean Corpuscular HGB Conc 32.8 g/dL (31.8-35.4); Mean Corpuscular Hemoglobin 31.5 pg (27.0-31.2); Mean Corpuscular Volume 96.1 fl (80-94); Mean Platelet Volume 7.8 fl (7.4-10.4); Monocytes # 0.3 K/mm3 (0.1-1.0); Monocytes % 2.6 % (1.7-9.3); Neutrophils # 11.6 K/mm3 (1.8-7.8); Neutrophils % 93.1 % (37.0-80.0); Platelet Count 329 K/mm3 (142-424); Red Blood Count 3.56 M/mm3 (4.60-6.20); White Blood Count 12.5 K/mm3 (4.8-10.8)
[2019-03-04 07:04] LABS: Calcium 8.6 mg/dL (8.5-10.1); Chol/HDL Ratio 3.5 (1-3.5)
--- NOTE | 2019-03-04 07:28 | History & Physical Report ---
*Admission Date: 03/04/19 *Chief complaint: Shortness of breath *History of present illness: 73-year old male with history of pulmonary fibrosis and COPD managed by plate former in [place] and recent short stay at the hospital for a fecal impaction presented to the emergency department overnight with worsening shortness of breath. Patient reports onset of shortness of breath at home with decreased O2 sats at home. He was able to increase his supplemental oxygen and raise his O2 sats at home to the 90s but this did not really alleviate any of his shortness of breath and he return to the emergency department. Patient denies chest pain but does report some discomfort along the left collarbone occu rring. On work-up in the emergency department he was found to have an elevated troponin and patient was admitted for cardiology consultation echocardiogram has been performed this morning. Chest x-ray and CT scan show chronic changes of the lungs without acute infiltrates. [facility] History Medical History: Reports:: Cancer (Prostate), Congestive Heart Failure, Chronic Obstructive Pulmonary Disease (COPD), Diabetes Mellitus Type 2, Hyperlipidemia, Hypertension Denies:: Diabetes Mellitus Type 1, MRSA *Have you ever received a pneumonia vaccine?: Yes *Have you received a flu vaccine this season?: Yes Comment:: Pulmonary fibrosis Other Surgeries: Yes: Colonoscopy, Hernia Repair, Other (retina sx) Amputation: No - *Social History Educational Level: Attended High School Smoking Status: Former smoker Tobacco Type: smokeless tobacco # Packs/Day (cigarettes): 1 Alcohol Intake: never Alcohol Intake Frequency:: holidays/special occasions only *Occupational Status:: retired Housing: house Household Members: spouse, family *Travel in the last 8 weeks: None - Psychiatric History Expresses thoughts of harming self/others: None Suicide Plan Description: No Plan Family Hx:: Cancer, Heart Attack, Stroke Review of Systems - Review of Systems Review of systems:: pertinent systems reviewed and negative unless documented below - Constitutional Denies body ache(s), Denies chills, Denies fever(s) - *Cardiovascular Denies chest pain, Denies chest pain at rest, Denies chest pain with activity - *Respiratory Reports shortness of breath, Reports shortness of breath with activity, Denies change in phlegm color, Denies chest congestion, Denies cough - *Gastrointestinal Denies abdominal pain, Denies belching, Denies bloating, Denies change in stools - *Neurologic Denies seizure-like activity Meds Home Medications Medication Instructions Recorded Confirmed Type Albuterol Sulfate [Albuterol HFA 2 puff INHALATION Q4HP PRN 08/13/18 03/04/19 History Inhaler] Fenofibrate Nanocrystallized 145 mg PO DAILY 08/13/18 03/04/19 History [Fenofibrate] Metformin HCl 850 mg PO BID 08/13/18 03/04/19 History Pravastatin Sodium [Pravachol 20mg 20 mg PO HS 08/13/18 03/04/19 History Tablet] Amlodipine Besylate 10 mg PO HS 03/01/19 03/04/19 History Aspirin [Aspirin 81mg chewable 81 mg PO DAILY 03/01/19 03/04/19 History tab] Megestrol Acetate [Megestrol 40 mg PO DAILY 03/01/19 03/04/19 History Acetate 40mg Tablet] Budesonide 2 ml IH BIDP PRN 03/02/19 03/04/19 History Calcium Carbonate/Vitamin D3 1 each PO DAILY 03/02/19 03/04/19 History [Calcium 1,000 + D3 Caplet] Multivitamin [Multivitamins] 1 each PO DAILY 03/02/19 03/04/19 History [place]-3 Fatty Acids/Fish Oil 1 each PO DAILY 03/02/19 03/04/19 History [[place] 3 1,000 mg Softgel] Citalopram Hydrobromide [Celexa 10 mg PO DAILY 03/04/19 03/04/19 History 10mg Tablet] Glimepiride [Amaryl] 2 mg PO DAILY 03/04/19 03/04/19 History Polyethylene Glycol 3350 [Miralax 17 gm PO DAILY 03/04/19 03/04/19 History Powder] Sulfamethoxazole/Trimethoprim 1 tab PO DAILY 03/04/19 03/04/19 History [Sulfamethoxazole-Tmp Ds Tablet] predniSONE [Deltasone 20mg 20 mg PO DAILY 03/04/19 03/04/19 History tablet] Allergies Allergy/AdvReac Type Severity Reaction Status Date / Time codeine [CODEINE] Allergy Unknown NA-NAUSEA/V Verified 03/03/19 21:33 OMITING Exam Vital signs and Labs for Last 24 Hours: Temp Pulse Resp BP Pulse Ox 99 F 99 H 24 130/77 98 03/04/19 03:00 03/04/19 05:31 03/04/19 05:31 03/04/19 05:31 03/04/19 05:31 Laboratory Results - last 24 hr 03/03/19 21:35: Specimen Source R/r, O2 % 100, ABG pH 7.33 L, ABG pCO2 36.3, ABG pO2 85.3, ABG HCO3 18.5 L, ABG Total CO2 19.6 L, ABG O2 Saturation 96, ABG Base Excess -7.5 L, Deondre Test Y 03/03/19 21:37: WBC 17.4 H D, RBC 3.93 L, Hgb 12.3 L, Hct 37.7 L, MCV 95.9 H, MCH 31.2, MCHC 32.5, RDW 13.9, Plt Count 378, MPV 7.1 L, Neut % (Auto) 85.1 H, Lymph % (Auto) 11.3, [place] % (Auto) 3.2, Eos % (Auto) 0.3, Baso % (Auto) 0.2, Neut # (Auto) 14.8 H, Lymph # (Auto) 2.0, [place] # (Auto) 0.6, Eos # (Auto) 0.0, Baso # (Auto) 0.0, Total Counted 100, Neutrophils % (Manual) 80 H, Band Neutrophils % 8.0, Lymphocytes % (Manual) 9 L, Monocytes % (Manual) 3, Platelet Estimate Normal, Macrocytosis 1+, Rouleaux 2+ 03/03/19 21:37: Sodium 126 L, Potassium 3.9, Chloride 91 L, Carbon Dioxide 21, Anion Gap 17.9 H, BUN 7, Creatinine 0.85 D, Estimated Creat Clear 62, Estimated GFR 89, Est GFR ( Amer) 107 D, Glucose 179 H, Calcium 8.7, Total Bilirubin 0.5, AST 29 D, ALT 28, Alkaline Phosphatase 63, Troponin I 2.98 H, Total Protein 6.8, Albumin 2.7 L, Globulin 4.1 H, Albumin/Globulin Ratio 0.7 L 03/03/19 21:37: Lactate 2.5 H 03/04/19 00:10: Influenza Type A Ag Negative, Influenza Type B Ag Negative 03/04/19 01:36: Specimen Source R/r, O2 % 75, ABG pH 7.38, ABG pCO2 28.1 L, ABG pO2 85.1, ABG HCO3 16.2 L, ABG Total CO2 17.0 L, ABG O2 Saturation 96, ABG Base Excess -9.0 L, Deondre Test Y 03/04/19 01:40: Lactate 1.2 03/04/19 01:40: Troponin I 4.59 H 03/04/19 05:21: WBC 12.5 H D, RBC 3.56 L, Hgb 11.2 L, Hct 34.2 L, MCV 96.1 H, MCH 31.5 H, MCHC 32.8, RDW 14.0, Plt Count 329, MPV 7.8, Neut % (Auto) 93.1 H, Lymph % (Auto) 4.1 L, [place] % (Auto) 2.6, Eos % (Auto) 0.1, Baso % (Auto) 0.1, Neut # (Auto) 11.6 H, Lymph # (Auto) 0.5 L, [place] # (Auto) 0.3, Eos # (Auto) 0.0, Baso # (Auto) 0.0 03/04/19 05:21: Sodium 127 L, Potassium 4.0, Chloride 92 L, Carbon Dioxide 19 L, Anion Gap 20.0 H, BUN 10 D, Creatinine 0.80, Estimated Creat Clear 62, Estimated GFR 95, Est GFR ( Amer) 115, Glucose 253 H D, Calcium 8.6, Magnesium 2.0, Triglycerides 60, Cholesterol 121 L, LDL Cholesterol 74, VLDL Cholesterol 12, HDL Cholesterol 35, Cholesterol/HDL Ratio 3.5 I & O for Last 24 hours: Intake & Output 03/01/19 03/02/19 03/03/19 03/04/19 11:59 11:59 11:59 11:59 Output Total 250 / 250 Balance -250 / -250 Weight 145 lb Narrative: Patient is laying in bed. He appears uncomfortable with increased respiratory rate and work of breathing. ENT exam reveals a dry oropharynx. Neck is without lymphadenopathy. Lungs have poor aeration with end expiratory wheezes. He is using accessory muscles to aid with expiration. Heart has a rapid rate and rhythm and is distant. Abdomen is soft, nontender, nondistended. Extremities are warm to the touch. Assessment and Plan (1) Non-STEMI (non-ST elevated myocardial infarction) Current visit: Yes Status: Acute Category: Medical Code(s): I21.4 - Non-ST elevation (NSTEMI) myocardial infarction Echocardiogram is been performed. Cardiology consultation ordered. Suspect non-STEMI is due to demand ischemia (2) Acute exacerbation of chronic obstructive airways disease Current visit: Yes Status: Acute Category: Medical Code(s): J44.1 - Chronic obstructive pulmonary disease with (acute) exacerbation Continue IV steroids and Xopenex (3) Hyponatremia Current visit: Yes Status: Acute Category: Medical Code(s): E87.1 - Hypo- osmolality and hyponatremia (4) Interstitial pulmonary fibrosis Current visit: No Status: Chronic Category: Medical Code(s): J84.10 - Pulmonary fibrosis, unspecified Patient has a long history of chronic lung disease. He does not wish to be intubated should his respiratory condition worsened
--- NOTE | 2019-03-04 07:50 | Pharmacy Consult Notes ---
[facility] Pharmacy VTE Monitoring - Patient Demographics Admission date: 03/03/19 Report Date: 03/04/19 Time: 07:49 Allergies/Adverse Reactions: Patient Allergies codeine [CODEINE] Allergy (Unknown, Verified 03/03/19 21:33) NA-NAUSEA/VOMITING Height: 1.78 m Weight: 65.771 kg Patient Problems: Current Active Problems (Updated 03/04/19 @ 07:30 by Mo Vasquez MD) Non-STEMI (non-ST elevated myocardial infarction) (Acute) Acute exacerbation of chronic obstructive airways disease (Acute) Hyponatremia (Acute) - VTE Risk Labs: VTE Related Lab Results Hgb 11.2 g/dL (14.1-18.0) L 03/04/19 05:21 Hct 34.2 % (42.0-52.0) L 03/04/19 05:21 Plt Count 329 K/mm3 (142-424) 03/04/19 05:21 BUN 10 mg/dL (7-18) D 03/04/19 05:21 Creatinine 0.80 mg/dL (0.70-1.30) 03/04/19 05:21 Estimated Creat Clear 62 mL/min (50-200) 03/04/19 05:21 VTE Score: 5 VTE Risk Level: Low Risk - Prophylaxis VTE Prophylaxis Ordered?: Yes Types of VTE Prophylaxis: TEDS Knee High Location of Applied Device: Bilateral Lower Extremeties - VTE Diagnosis Confirmed Treatment or plan recommended: Continue Current Treatment
--- NOTE | 2019-03-04 08:18 | Consult Report ---
History of Present Illness Consult date: 03/04/19 Requesting physician: Mo Vasquez Consult reason: chest pain Chief complaint: NSTEMI Additional Medical History:: 1. COPD A. Ex-smoker B. Pulmonary fibrosis C. Chronic oxygen therapy 2. DM, treated for about 15 yrs 3. HTN 4. HLD 5. History of prostate cancer A. Radiation therapy History of present illness: 73-year old male with history of pulmonary fibrosis and COPD managed by demographer in [place] and recent short stay at the hospital for a fecal impaction presented to the emergency department overnight with worsening shortness of breath. Patient reports onset of shortness of breath at home with decreased O2 sats at home. He was able to increase his supplemental oxygen and raise his O2 sats at home to the 90s but this did not really alleviate any of his shortness of breath and he return to the emergency department. Patient denies chest pain but does report some discomfort along the left collarbone occurring. On work-up in the emergency department he was found to have an elevated troponin and patient was admitted for cardiology consultation echocardiogram has been performed this morning. Chest x-ray and CT scan show chronic changes of the lungs without acute infiltrates. The above per Dr. Vasquez Denies any history of cardiac problems. Stopped smoking many years ago. Still with some aching in the left collarbone this AM. EKG is sinus tach at 112 bpm with LAD and anterolateral infarct pattern. Troponin 4.59 early this AM [facility] History Medical History: Reports:: Cancer (Prostate), Congestive Heart Failure, Chronic Obstructive Pulmonary Disease (COPD), Diabetes Mellitus Type 2, Hyperlipidemia, Hypertension Denies:: Diabetes Mellitus Type 1, MRSA *Have you ever received a pneumonia vaccine?: Yes *Have you received a flu vaccine this season?: Yes Other Surgeries: Yes: Colonoscopy, Hernia Repair, Other (retina sx) Amputation: No - *Social History Educational Level: Attended High School Smoking Status: Former smoker Tobacco Type: smokeless tobacco # Packs/Day (cigarettes): 1 Alcohol Intake: never Alcohol Intake Frequency:: holidays/special occasions only *Occupational Status:: retired Housing: house Household Members: spouse, family *Travel in the last 8 weeks: None - Psychiatric History Expresses thoughts of harming self/others: None Suicide Plan Description: No Plan Family Hx:: Cancer, Heart Attack, Stroke Meds Home Medications Medication Instructions Recorded Confirmed Type Albuterol Sulfate [Albuterol HFA 2 puff INHALATION Q4HP PRN 08/13/18 03/04/19 History Inhaler] Fenofibrate Nanocrystallized 145 mg PO DAILY 08/13/18 03/04/19 History [Fenofibrate] Metformin HCl 850 mg PO BID 08/13/18 03/04/19 History Pravastatin Sodium [Pravachol 20mg 20 mg PO HS 08/13/18 03/04/19 History Tablet] Amlodipine Besylate 10 mg PO HS 03/01/19 03/04/19 History Aspirin [Aspirin 81mg chewable 81 mg PO DAILY 03/01/19 03/04/19 History tab] Megestrol Acetate [Megestrol 40 mg PO DAILY 03/01/19 03/04/19 History Acetate 40mg Tablet] Budesonide 2 ml IH DAILY 03/02/19 03/04/19 History Calcium Carbonate/Vitamin D3 1 each PO DAILY 03/02/19 03/04/19 History [Calcium 1,000 + D3 Caplet] Multivitamin [Multivitamins] 1 each PO DAILY 03/02/19 03/04/19 History [place]-3 Fatty Acids/Fish Oil 1 each PO DAILY 03/02/19 03/04/19 History [[place] 3 1,000 mg Softgel] Citalopram Hydrobromide [Celexa 10 mg PO DAILY 03/04/19 03/04/19 History 10mg Tablet] Glimepiride [Amaryl] 2 mg PO DAILY 03/04/19 03/04/19 History Nintedanib Esylate [Ofev] 150 mg PO BID 03/04/19 03/04/19 History Ondansetron HCl [Ondansetron 8mg 8 mg PO Q8HP PRN 03/04/19 03/04/19 History Tablet] Polyethylene Glycol 3350 [Miralax 17 gm PO DAILY 03/04/19 03/04/19 History Powder] Sulfamethoxazole/Trimethoprim 1 tab PO DAILY 03/04/19 03/04/19 History [Sulfamethoxazole-Tmp Ds Tablet] Tiotropium Br/Olodaterol HCl 2 puffs IH DAILY 03/04/19 03/04/19 History [Stiolto Respimat Inhal [place]] predniSONE [Deltasone 20mg 20 mg PO DAILY 03/04/19 03/04/19 History tablet] Allergies Allergy/AdvReac Type Severity Reaction Status Date / Time codeine [CODEINE] Allergy Unknown NA-NAUSEA/V Verified 03/03/19 21:33 OMITING Review of Systems - *Cardiovascular Reports chest pain, Reports shortness of breath, Reports shortness of breath with activity - *Respiratory Reports cough, Reports shortness of breath - *Gastrointestinal Denies abdominal pain, Denies incontinent of stools - *Genitourinary Denies difficulty urinating, Denies blood in urine - *Musculoskeletal Denies joint pain, Denies back pain - *Neurologic Denies seizure-like activity Exam Vital signs and Labs for Last 24 Hours: Temp Pulse Resp BP Pulse Ox 99 F 96 H 24 139/81 95 03/04/19 03:00 03/04/19 07:00 03/04/19 05:31 03/04/19 07:00 03/04/19 07:00 Laboratory Results - last 24 hr 03/03/19 21:35: Specimen Source R/r, O2 % 100, ABG pH 7.33 L, ABG pCO2 36.3, ABG pO2 85.3, ABG HCO3 18.5 L, ABG Total CO2 19.6 L, ABG O2 Saturation 96, ABG Base Excess -7.5 L, Deondre Test Y 03/03/19 21:37: WBC 17.4 H D, RBC 3.93 L, Hgb 12.3 L, Hct 37.7 L, MCV 95.9 H, MCH 31.2, MCHC 32.5, RDW 13.9, Plt Count 378, MPV 7.1 L, Neut % (Auto) 85.1 H, Lymph % (Auto) 11.3, [place] % (Auto) 3.2, Eos % (Auto) 0.3, Baso % (Auto) 0.2, Neut # (Auto) 14.8 H, Lymph # (Auto) 2.0, [place] # (Auto) 0.6, Eos # (Auto) 0.0, Baso # (Auto) 0.0, Total Counted 100, Neutrophils % (Manual) 80 H, Band Neutrophils % 8.0, Lymphocytes % (Manual) 9 L, Monocytes % (Manual) 3, Platelet Estimate Normal, Macrocytosis 1+, Rouleaux 2+ 03/03/19 21:37: Sodium 126 L, Potassium 3.9, Chloride 91 L, Carbon Dioxide 21, Anion Gap 17.9 H, BUN 7, Creatinine 0.85 D, Estimated Creat Clear 62, Estimated GFR 89, Est GFR ( Amer) 107 D, Glucose 179 H, Calcium 8.7, Total Bilirubin 0.5, AST 29 D, ALT 28, Alkaline Phosphatase 63, Troponin I 2.98 H, Total Protein 6.8, Albumin 2.7 L, Globulin 4.1 H, Albumin/Globulin Ratio 0.7 L 03/03/19 21:37: Lactate 2.5 H 03/04/19 00:10: Influenza Type A Ag Negative, Influenza Type B Ag Negative 03/04/19 01:36: Specimen Source R/r, O2 % 75, ABG pH 7.38, ABG pCO2 28.1 L, ABG pO2 85.1, ABG HCO3 16.2 L, ABG Total CO2 17.0 L, ABG O2 Saturation 96, ABG Base Excess -9.0 L, Deondre Test Y 03/04/19 01:40: Lactate 1.2 03/04/19 01:40: Troponin I 4.59 H 03/04/19 05:21: WBC 12.5 H D, RBC 3.56 L, Hgb 11.2 L, Hct 34.2 L, MCV 96.1 H, MCH 31.5 H, MCHC 32.8, RDW 14.0, Plt Count 329, MPV 7.8, Neut % (Auto) 93.1 H, Lymph % (Auto) 4.1 L, [place] % (Auto) 2.6, Eos % (Auto) 0.1, Baso % (Auto) 0.1, Neut # (Auto) 11.6 H, Lymph # (Auto) 0.5 L, [place] # (Auto) 0.3, Eos # (Auto) 0.0, Baso # (Auto) 0.0 03/04/19 05:21: Sodium 127 L, Potassium 4.0, Chloride 92 L, Carbon Dioxide 19 L, Anion Gap 20.0 H, BUN 10 D, Creatinine 0.80, Estimated Creat Clear 62, Estimated GFR 95, Est GFR ( Amer) 115, Glucose 253 H D, Calcium 8.6, Magnesium 2.0, Triglycerides 60, Cholesterol 121 L, LDL Cholesterol 74, VLDL Cholesterol 12, HDL Cholesterol 35, Cholesterol/HDL Ratio 3.5 I & O for Last 24 hours: Intake & Output 03/01/19 03/02/19 03/03/19 03/04/19 11:59 11:59 11:59 11:59 Output Total 250 / 250 Balance -250 / -250 Weight 145 lb - *Routine HEENT Exam Head: Present: normocephalic Eye: Present: EOMI, PERRL ENT: Present: mucous membranes moist - *Routine Neck Exam Present: supple. Absent: JVD, carotid bruit - *Routine Respiratory Exam Present: decreased breath sounds, rhonchi, diminished air movement. Absent: accessory muscle use, rales, wheezes - *Routine Cardiovascular Exam Present: RRR. Absent: murmur, gallop, rubs - *Routine Extremities Exam Absent: edema, calf tenderness - *Routine Neurological Exam Present: alert, oriented X3, moving all extremities Assessment and Plan (1) Non-STEMI (non-ST elevated myocardial infarction) Current visit: Yes Status: Acute Category: Medical Code(s): I21.4 - Non-ST elevation (NSTEMI) myocardial infarction (2) Acute exacerbation of chronic obstructive airways disease Current visit: Yes Status: Acute Category: Medical Code(s): J44.1 - Chronic obstructive pulmonary disease with (acute) exacerbation (3) Hyponatremia Current visit: Yes Status: Acute Category: Medical Code(s): E87.1 - Hypo- osmolality and hyponatremia (4) Interstitial pulmonary fibrosis Current visit: No Status: Chronic Category: Medical Code(s): J84.10 - Pulmonary fibrosis, unspecified (5) Diabetes Current visit: Yes Status: Acute Category: Medical Code(s): E11.9 - Type 2 diabetes mellitus without complications - Assessment and plan all Dx Assessment and Plan for all problems:: 1. LHC today due to NSTEMI. On ASA. 2. NTG paste 0.5" now due to intermittent left collarbone pain 3. Add low dose ARB and beta michael due to NSTEMI in a diabetic. 4. One time dose of lasix
--- NOTE | 2019-03-04 18:47 | Cardiology Report ---
PROCEDURE: 2-D M-mode and color Doppler study INDICATIONS FOR THE TEST: Chest pain + COPD+ Heart Murmur Tobacco Smoking Palpitations Fatigue Syncope Edema Hypertension+Diabetes Mellitus+ Rheumatic Fever SOB PEPE Obesity Hyperlipidemia+ Family History HD Additional History PUL FIBROSIS PATIENT INFORMATION HEIGHT: 70 WEIGHT:145 GENDER: Male B/P: 2-D/M-MODE INTERPRETATION: 2-D MEASUREMENTS OBSERVED VALUES IN CMS Right Ventricular Dimension (RVDd) 2.8 Interventricular Septum (Thickness)(IVsd) 1.5 Left Ventricular Internal Dimensions(LVIDd) 5.1 Left Ventricular Posterior Wall (Thickness)(LVPWd) 1.2 Aortic Root 4.5 Aortic Cusp Separation 2.1 Left Atrial Dimensions (LAD) 3.2 2D 1. Technically difficult study because of the patient's factor and poor acoustic windows 2. Left atrium is moderately enlarged, left ventricle is mildly dilated, there is severely reduced left ventricular systolic function, visually estimated ejection fraction of 25%, there is marked hypo to akinesis involving mid to distal septum, anterior, anterior apical, anterolateral and inferior apical wall. 3. The right atrium and right ventricle are normal size and contractility. 4. The aortic valve is thickened and calcified leaflet continue to display mobility. 5. The mitral and tricuspid valve leaflets are minimally thickened. 6. The pulmonic valve is poorly visualized 7. No significant pericardial effusion noted. DOPPLER INTERROGATION: Doppler interrogation of the aortic, mitral and tricuspid valvular presence of mild mitral and tricuspid regurgitation, tricuspid regurgitation jet velocity is inadequate for calculation of the right ventricular systolic pressure, diastolic parameters are inconclusive. CONCLUSION: 1. Moderately enlarged left atrium, mildly dilated left ventricle, mild concentric left ventricular hypertrophy, visually estimated ejection fraction of 25% with multiple segmental wall motion abnormalities described above, diastolic parameters are inconclusive. 2. Mild mitral and tricuspid regurgitation 3. No significant pericardial effusion noted.
--- NOTE | 2019-03-05 06:52 | Progress Note ---
Internal Medicine - PN: Subj *Date: 03/05/19 *Time: 06:48 Interval history: Patient underwent left heart catheterization yesterday which revealed significant obstructive coronary artery disease. Patient had stenting of the left main. He was also discovered to have severe congestive heart failure. Patient was started on heart failure regimen. Overnight patient complained of a burning chest pain. Dr. Grace was contacted and ordered a nitroglycerin drip. I also gave the patient a GI cocktail and IV Protonix. Patient tells me this morning he felt the burning sensation in his chest was due to his supplemental oxygen. Because of low blood pressure nitroglycerin drip was delayed and patient's chest pain resolved before the drip was started. However overnight he became diaphoretic and nitroglycerin drip was started at a very low rate. Patient has not had any chest pain since yesterday evening. He denies nausea. O2 sats have decreased intermittently to the mid 80s. Exam Vital signs and Labs for Last 24 Hours: Temp Pulse Resp BP Pulse Ox 97.0 F L 89 20 104/66 L 90 L 03/05/19 00:00 03/05/19 06:00 03/05/19 01:00 03/05/19 06:00 03/05/19 06:00 Laboratory Results - last 24 hr 03/04/19 05:21: WBC 12.5 H D, RBC 3.56 L, Hgb 11.2 L, Hct 34.2 L, MCV 96.1 H, MCH 31.5 H, MCHC 32.8, RDW 14.0, Plt Count 329, MPV 7.8, Neut % (Auto) 93.1 H, Lymph % (Auto) 4.1 L, [place] % (Auto) 2.6, Eos % (Auto) 0.1, Baso % (Auto) 0.1, Neut # (Auto) 11.6 H, Lymph # (Auto) 0.5 L, [place] # (Auto) 0.3, Eos # (Auto) 0.0, Baso # (Auto) 0.0 03/04/19 05:21: Sodium 127 L, Potassium 4.0, Chloride 92 L, Carbon Dioxide 19 L, Anion Gap 20.0 H, BUN 10 D, Creatinine 0.80, Estimated Creat Clear 62, Estimated GFR 95, Est GFR ( Amer) 115, Glucose 253 H D, Calcium 8.6, Magnesium 2.0, Triglycerides 60, Cholesterol 121 L, LDL Cholesterol 74, VLDL Cholesterol 12, HDL Cholesterol 35, Cholesterol/HDL Ratio 3.5 03/04/19 06:23: POC Glucose 259 H 03/04/19 08:32: B-Natriuretic Peptide 1350 H 03/04/19 10:42: Activated Clotting Time 221 H* 03/04/19 11:47: POC Glucose 208 H 03/04/19 16:36: POC Glucose 183 H 03/04/19 21:55: POC Glucose 195 H 03/05/19 06:18: POC Glucose 233 H I & O for Last 24 hours: Intake & Output 03/02/19 03/03/19 03/04/19 03/05/19 11:59 11:59 11:59 11:59 Intake Total 0 / 0 667 / 667 Output Total 250 / 250 850 / 850 Balance -250 / -250 -183 / -183 Weight 145 lb 118 lb 8 oz Narrative: Patient has mild increased work of breathing although seems improved since yeste rday. Skin is cool to the touch. Heart has a regular rate and rhythm. Lungs have poor aeration with faint rales. No wheezing this morning Assessment and Plan (1) Non-STEMI (non-ST elevated myocardial infarction) Current visit: Yes Status: Acute Category: Medical Code(s): I21.4 - Non-ST elevation (NSTEMI) myocardial infarction (2) Acute exacerbation of chronic obstructive airways disease Current visit: Yes Status: Acute Category: Medical Code(s): J44.1 - Chronic obstructive pulmonary disease with (acute) exacerbation (3) Hyponatremia Current visit: Yes Status: Acute Category: Medical Code(s): E87.1 - Hypo-osmolality and hyponatremia (4) Interstitial pulmonary fibrosis Current visit: No Status: Chronic Category: Medical Code(s): J84.10 - Pulmonary fibrosis, unspecified (5) Diabetes Current visit: Yes Status: Acute Category: Medical Code(s): E11.9 - Type 2 diabetes mellitus without complications (6) Acute systolic CHF (congestive heart failure) Current visit: Yes Status: Acute Category: Medical Code(s): I50.21 - Acute systolic (congestive) heart failure (7) Chronic respiratory failure Current visit: Yes Status: Acute Category: Medical Code(s): J96.10 - Chronic respiratory failure, unspecified whether with hypoxia or hypercapnia (8) Body mass index (BMI) less than 19 in adult Current visit: Yes Status: Acute Category: Medical Code(s): Z68.1 - Body mass index (BMI) 19.9 or less, adult - Assessment and plan all Dx Assessment and Plan for all problems:: 1. Cardiology to reassess this morning 2. Patient needs further diuresis and this will be approached cautiously due to his blood pressure 3. the patient's prognosis is poor due to his underlying lung disease and on top of that now severe congestive heart failure. Patient is aware of his ongoing health problems. Patient is a candidate for hospice
[2019-03-05 07:17] LABS: Anion Gap 13.2 mEq/L (5-15); Calcium 8.2 mg/dL (8.5-10.1); Potassium 4.2 mmoL/L (3.5-5.1)
[2019-03-05 07:19] LABS: Basophils % 0.1 % (0.1-2.0); Eosinophils # 0.1 K/mm3 (0.0-0.4); Eosinophils % 0.5 % (0.1-12.0); Hematocrit 32.6 % (42.0-52.0); Hemoglobin 10.6 g/dL (14.1-18.0); Lymphocytes # 0.9 K/mm3 (0.7-4.5); Lymphocytes % 6.2 % (10-50); Mean Corpuscular HGB Conc 32.6 g/dL (31.8-35.4); Mean Corpuscular Hemoglobin 30.9 pg (27.0-31.2); Mean Corpuscular Volume 94.8 fl (80-94); Mean Platelet Volume 7.3 fl (7.4-10.4); Monocytes # 0.5 K/mm3 (0.1-1.0); Monocytes % 3.7 % (1.7-9.3); Neutrophils % 89.5 % (37.0-80.0); Platelet Count 416 K/mm3 (142-424); Red Blood Count 3.44 M/mm3 (4.60-6.20); Red Cell Distribution Width 13.9 % (11.5-17.5); White Blood Count 14.5 K/mm3 (4.8-10.8)
--- NOTE | 2019-03-05 09:44 | Progress Note ---
Subjective Date: 03/05/19 Time: 09:34 Principal diagnosis: CAD, CHF, CM Interval history: 73 yo WM in ICU. Not feeling well with complaint of heartburn and nausea with SOA. IV NTG started overnight for chest discomfort. BP stable in the 110-115 mm Hg range HR in the 90's On Vapotherm oxygen and maintaining sat around 90 Exam Vital signs and Labs for Last 24 Hours: Temp Pulse Resp BP Pulse Ox 97.0 F L 91 H 20 104/66 L 90 L 03/05/19 00:00 03/05/19 09:16 03/05/19 01:00 03/05/19 06:00 03/05/19 06:00 Laboratory Results - last 24 hr 03/04/19 10:42: Activated Clotting Time 221 H* 03/04/19 11:47: POC Glucose 208 H 03/04/19 16:36: POC Glucose 183 H 03/04/19 21:55: POC Glucose 195 H 03/05/19 06:15: WBC 14.5 H, RBC 3.44 L, Hgb 10.6 L, Hct 32.6 L, MCV 94.8 H, MCH 30.9, MCHC 32.6, RDW 13.9, Plt Count 416 D, MPV 7.3 L, Neut % (Auto) 89.5 H, Lymph % (Auto) 6.2 L, [place] % (Auto) 3.7, Eos % (Auto) 0.5, Baso % (Auto) 0.1, Neut # (Auto) 13.0 H, Lymph # (Auto) 0.9, [place] # (Auto) 0.5, Eos # (Auto) 0.1, Baso # (Auto) 0.0 03/05/19 06:15: Sodium 127 L, Potassium 4.2, Chloride 93 L, Carbon Dioxide 25 D , Anion Gap 13.2, BUN 25 H D, Creatinine 0.88, Estimated Creat Clear 51, Estimated GFR 85, Est GFR ( Amer) 103, Glucose 219 H, Calcium 8.2 L 03/05/19 06:18: POC Glucose 233 H I & O for Last 24 hours: Intake & Output 03/02/19 03/03/19 03/04/19 03/05/19 11:59 11:59 11:59 11:59 Intake Total 0 / 0 667 / 667 Output Total 250 / 250 850 / 850 Balance -250 / -250 -183 / -183 Weight 145 lb 118 lb 8 oz - *Routine HEENT Exam Head: Present: normocephalic Eye: Present: EOMI, PERRL ENT: Present: mucous membranes moist - *Routine Respiratory Exam Present: diminished air movement. Absent: accessory muscle use, rales, rhonchi, wheezes - *Routine Cardiovascular Exam Present: RRR. Absent: murmur, gallop, rubs - *Routine Neurological Exam Present: alert, oriented X3, moving all extremities Progress Note: A&P (1) Non-STEMI (non-ST elevated myocardial infarction) Status: Acute Current Visit: Yes (2) Acute exacerbation of chronic obstructive airways disease Status: Acute Current Visit: Yes (3) Hyponatremia Status: Acute Current Visit: Yes (4) Interstitial pulmonary fibrosis Status: Chronic Current Visit: No (5) Diabetes Status: Acute Current Visit: Yes (6) Acute systolic CHF (congestive heart failure) Status: Acute Current Visit: Yes (7) Chronic respiratory failure Status: Acute Current Visit: Yes (8) Body mass index (BMI) less than 19 in adult Status: Acute Current Visit: Yes (9) Cardiomyopathy Status: Acute Current Visit: Yes (10) CAD (coronary artery disease), [place] coronary artery Status: Acute Current Visit: Yes Assessment and Plan for All Diagnoses:: 1. Patient with severe cardiomyopathy with ejection fraction of 10 to 15%. Continue CHF/CM therapy including GIANCARLO, beta-michael, digoxin, Lasix, Aldactone. 2. Coronary artery disease with left main and LAD stenting, on aspirin and Plavix. We will try to wean off nitroglycerin drip to allow blood pressure did stay above 100 on cardiomyopathy medications. 3. Idiopathic pulmonary fibrosis complicates all aspects of care 4. Nausea likely secondary to combination of cardiopulmonary issues 5. Discussed with patient's daughter grim prognosis. She states the track and field coach told them that he only had about 6 months left to live at his last appointment 6 months ago.
[2019-03-05 10:42] LABS: Lymphocytes % 4 % (10-50); Monocytes % 2 % (2-9); Neutrophils % 91 % (42-76); Total Cells Counted 100
[2019-03-05 10:43] LABS: RBC Morphology Normal
[2019-03-06 06:44] LABS: Eosinophils % 0.1 % (0.1-12.0); Hematocrit 33.2 % (42.0-52.0); Hemoglobin 10.7 g/dL (14.1-18.0); Lymphocytes # 0.7 K/mm3 (0.7-4.5); Lymphocytes % 5.8 % (10-50); Mean Corpuscular HGB Conc 32.3 g/dL (31.8-35.4); Mean Platelet Volume 7.4 fl (7.4-10.4); Monocytes # 0.4 K/mm3 (0.1-1.0); Monocytes % 3.2 % (1.7-9.3); Neutrophils # 11.1 K/mm3 (1.8-7.8); Neutrophils % 90.8 % (37.0-80.0); Platelet Count 438 K/mm3 (142-424); Red Blood Count 3.46 M/mm3 (4.60-6.20); Red Cell Distribution Width 13.8 % (11.5-17.5); White Blood Count 12.2 K/mm3 (4.8-10.8)
[2019-03-06 06:53] LABS: Calcium 8.5 mg/dL (8.5-10.1)
--- NOTE | 2019-03-06 07:04 | Progress Note ---
Internal Medicine - PN: Subj *Date: 03/06/19 *Time: 07:01 Interval history: Nursing staff reports patient had a good night. He had a temporary drop in his O2 sats that required increase in FiO2 via Vapotherm to 90% but has since been weaned down to 70%. O2 sats remain in the high 80s to low 90s. Patient admits he is feeling better this morning and feels like he is able to take better breaths. He denies chest pain Exam Vital signs and Labs for Last 24 Hours: Temp Pulse Resp BP Pulse Ox 97.6 F 86 20 98/54 L 97 03/06/19 04:11 03/06/19 06:00 03/06/19 06:00 03/06/19 06:00 03/06/19 06:00 Laboratory Results - last 24 hr 03/05/19 06:15: WBC 14.5 H, RBC 3.44 L, Hgb 10.6 L, Hct 32.6 L, MCV 94.8 H, MCH 30.9, MCHC 32.6, RDW 13.9, Plt Count 416 D, MPV 7.3 L, Neut % (Auto) 89.5 H, Lymph % (Auto) 6.2 L, [place] % (Auto) 3.7, Eos % (Auto) 0.5, Baso % (Auto) 0.1, Neut # (Auto) 13.0 H, Lymph # (Auto) 0.9, [place] # (Auto) 0.5, Eos # (Auto) 0.1, Baso # (Auto) 0.0, Total Counted 100, Neutrophils % (Manual) 91 H, Band Neutrophils % 3.0, Lymphocytes % (Manual) 4 L, Monocytes % (Manual) 2, Platelet Estimate Normal, RBC Morphology Normal 03/05/19 06:15: Sodium 127 L, Potassium 4.2, Chloride 93 L, Carbon Dioxide 25 D , Anion Gap 13.2, BUN 25 H D, Creatinine 0.88, Estimated Creat Clear 51, Estimated GFR 85, Est GFR ( Amer) 103, Glucose 219 H, Calcium 8.2 L 03/05/19 11:22: POC Glucose 195 H 03/05/19 17:14: POC Glucose 204 H 03/05/19 20:33: POC Glucose 205 H 03/06/19 05:53: POC Glucose 225 H 03/06/19 05:55: WBC 12.2 H, RBC 3.46 L, Hgb 10.7 L, Hct 33.2 L, MCV 96.0 H, MCH 31.0, MCHC 32.3, RDW 13.8, Plt Count 438 H, MPV 7.4, Neut % (Auto) 90.8 H, Lymph % (Auto) 5.8 L, [place] % (Auto) 3.2, Eos % (Auto) 0.1, Baso % (Auto) 0.0 L, Neut # (Auto) 11.1 H, Lymph # (Auto) 0.7, [place] # (Auto) 0.4, Eos # (Auto) 0.0, Baso # (Auto) 0.0 I & O for Last 24 hours: Intake & Output 03/03/19 03/04/19 03/05/19 03/06/19 11:59 11:59 11:59 11:59 Intake Total 0 / 0 787 / 787 270 / 270 Output Total 250 / 250 1050 / 1050 975 / 975 Balance -250 / -250 -263 / -263 -705 / -705 Weight 145 lb 118 lb 8 oz 145 lb 5 oz Microbiology Reports for the Last 24 Hours: Microbiology 03/03/19 21:35 Blood Blood Culture - Preliminary NO GROWTH AFTER 48 HOURS 03/03/19 21:35 Blood Blood Culture - Preliminary NO GROWTH AFTER 48 HOURS Narrative: He is in no distress and looks a little more comfortable breathing this morning although he is still using accessory muscles for expiration. Lung exam reveals basilar crackles posteriorly but anteriorly lung sounds have improved. Heart has a regular rate and rhythm. Extremities are without edema. Assessment and Plan (1) Non-STEMI (non-ST elevated myocardial infarction) Current visit: Yes Status: Acute Category: Medical Code(s): I21.4 - Non-ST elevation (NSTEMI) myocardial infarction (2) Acute exacerbation of chronic obstructive airways disease Current visit: Yes Status: Acute Category: Medical Code(s): J44.1 - Chronic obstructive pulmonary disease with (acute) exacerbation (3) Hyponatremia Current visit: Yes Status: Acute Category: Medical Code(s): E87.1 - Hypo- osmolality and hyponatremia (4) Interstitial pulmonary fibrosis Current visit: No Status: Chronic Category: Medical Code(s): J84.10 - Pulmonary fibrosis, unspecified (5) Diabetes Current visit: Yes Status: Acute Category: Medical Code(s): E11.9 - Type 2 diabetes mellitus without complications (6) Acute systolic CHF (congestive heart failure) Current visit: Yes Status: Acute Category: Medical Code(s): I50.21 - Acute systolic (congestive) heart failure (7) Chronic respiratory failure Current visit: Yes Status: Acute Category: Medical Code(s): J96.10 - Chronic respiratory failure, unspecified whether with hypoxia or hypercapnia (8) Body mass index (BMI) less than 19 in adult Current visit: Yes Status: Acute Category: Medical Code(s): Z68.1 - Body mass index (BMI) 19.9 or less, adult (9) Cardiomyopathy Current visit: Yes Status: Acute Category: Medical Code(s): I42.9 - Cardiomyopathy, unspecified (10) CAD (coronary artery disease), [place] coronary artery Current visit: Yes Status: Acute Category: Medical Code(s): I25.10 - Atherosclerotic heart disease of [place] coronary artery without angina pectoris - Assessment and plan all Dx Assessment and Plan for all problems:: Patient does seem to have improved compared to yesterday. We will see how his day goes. No change in medications at this time. Fluid balance is very tenuous and this patient will continue to attempt to diurese.
[2019-03-06 09:26] LABS: Lymphocytes % 8 % (10-50); Monocytes % 2 % (2-9); Neutrophils % 90 % (42-76); RBC Morphology Normal; Total Cells Counted 100
--- NOTE | 2019-03-06 10:33 | Progress Note ---
Subjective Date: 03/06/19 Time: 10:24 Principal diagnosis: CAD, CHF, CM Interval history: This is a 73-year-old white gentleman who remains in the ICU. The patient states that he is feeling better today than he was yesterday. He denies any chest pain or pressure. He states that the heartburn and nausea that he was experiencing yesterday has resolved. He is still complaining of shortness of breath however he states that his shortness of breath is chronic. The patient did desaturate last night on the Vapotherm oxygen and had to have his oxygen support turned up to 90%. He has been weaned back down to 70% today and is tolerating this well. He states that his shortness of breath is stable for him. He denies any fever, chills, nausea, vomiting or diarrhea. His blood pressure remains marginal today. Exam Vital signs and Labs for Last 24 Hours: Temp Pulse Resp BP Pulse Ox 97.0 F L 87 18 107/57 L 98 03/06/19 08:00 03/06/19 10:01 03/06/19 10:01 03/06/19 10:01 03/06/19 10:01 Laboratory Results - last 24 hr 03/05/19 06:15: Total Counted 100, Neutrophils % (Manual) 91 H, Band Neutrophils % 3.0, Lymphocytes % (Manual) 4 L, Monocytes % (Manual) 2, Platelet Estimate Normal, RBC Morphology Normal 03/05/19 11:22: POC Glucose 195 H 03/05/19 17:14: POC Glucose 204 H 03/05/19 20:33: POC Glucose 205 H 03/06/19 05:53: POC Glucose 225 H 03/06/19 05:55: WBC 12.2 H, RBC 3.46 L, Hgb 10.7 L, Hct 33.2 L, MCV 96.0 H, MCH 31.0, MCHC 32.3, RDW 13.8, Plt Count 438 H, MPV 7.4, Neut % (Auto) 90.8 H, Lymph % (Auto) 5.8 L, [place] % (Auto) 3.2, Eos % (Auto) 0.1, Baso % (Auto) 0.0 L, Neut # (Auto) 11.1 H, Lymph # (Auto) 0.7, [place] # (Auto) 0.4, Eos # (Auto) 0.0, Baso # (Auto) 0.0, Total Counted 100, Neutrophils % (Manual) 90 H, Lymphocytes % (Manual) 8 L, Monocytes % (Manual) 2, Platelet Estimate Normal, RBC Morphology Normal 03/06/19 05:55: Sodium 128 L, Potassium 5.0, Chloride 91 L, Carbon Dioxide 22, Anion Gap 20.0 H, BUN 42 H D, Creatinine 1.02, Estimated Creat Clear 61, Estimated GFR 72, Est GFR ( Amer) 87, Glucose 230 H, Calcium 8.5 I & O for Last 24 hours: Intake & Output 03/03/19 03/04/19 03/05/19 03/06/19 23:59 23:59 23:59 23:59 Intake Total 667 / 667 330 / 330 300 / 300 Output Total 900 / 900 1175 / 1175 225 / 225 Balance -233 / -233 -845 / -845 75 / 75 Weight 145 lb 118 lb 8 oz 145 lb 5 oz Microbiology Reports for the Last 24 Hours: Microbiology 03/06/19 05:30 Sputum - Expectorated Sputum Gram Stain - Final 03/03/19 21:35 Blood Blood Culture - Preliminary NO GROWTH AFTER 48 HOURS 03/03/19 21:35 Blood Blood Culture - Preliminary NO GROWTH AFTER 48 HOURS Narrative: His telemetry strip shows sinus rhythm with a rate of 86. - Constitutional no acute distress, chronically ill appearing - *Routine HEENT Exam Head: Present: normocephalic, atraumatic Eye: Present: EOMI, PERRL ENT: Present: mucous membranes moist - *Routine Neck Exam Present: supple, full ROM, normal carotid upstroke. Absent: JVD, carotid bruit, lymphadenopathy - *Routine Respiratory Exam Present: decreased breath sounds - *Routine Cardiovascular Exam Present: RRR, Normal S1, Normal S2. Absent: murmur, gallop - *Routine Abdominal Exam Present: soft, normoactive bowel sounds. Absent: tenderness, distended - *Routine Extremities Exam Present: full ROM, pulses intact. Absent: cyanosis, clubbing, edema - *Routine Skin Exam Present: intact, warm. Absent: erythema, rash - *Routine Neurological Exam Present: alert, oriented X3, CN II-XII intact. Absent: sensory deficit, motor deficit - Detailed Eye Exam Eyelids: Left normal inspection Progress Note: A&P (1) Non-STEMI (non-ST elevated myocardial infarction) Status: Acute Current Visit: Yes (2) Acute exacerbation of chronic obstructive airways disease Status: Acute Current Visit: Yes (3) Hyponatremia Status: Acute Current Visit: Yes (4) Interstitial pulmonary fibrosis Status: Chronic Current Visit: No (5) Diabetes Status: Acute Current Visit: Yes (6) Acute systolic CHF (congestive heart failure) Status: Acute Current Visit: Yes (7) Chronic respiratory failure Status: Acute Current Visit: Yes (8) Body mass index (BMI) less than 19 in adult Status: Acute Current Visit: Yes (9) Cardiomyopathy Status: Acute Current Visit: Yes (10) CAD (coronary artery disease), [place] coronary artery Status: Acute Current Visit: Yes Assessment and Plan for All Diagnoses:: Plan: 1. The patient was admitted to the hospital with a non-STEMI. He did undergo left cardiac catheterization with stents to the LAD. He remains on aspirin and Plavix for dual antiplatelet therapy. 2. The patient has been weaned off of the nitroglycerin drip. 3. He denies any chest pain or pressure. He states that he is feeling much better today than he was yesterday. We will continue with his dual antiplatelet therapy and post LA medications. 4. The patient does have ischemic cardiomyopathy with an ejection fraction of 10 to 15%. The patient is on standard heart failure medications. He is tolerating these medications well. We cannot advance these heart failure medications due to his very marginal blood pressure. 5. His blood pressure is marginal. We will continue to monitor this. 6. His LDL goal is less than 55. 7. The patient is diabetic. He does need aggressive control of his diabetes. Will defer this to his primary care provider. 8. The patient does have idiopathic pulmonary fibrosis. He does have chronic shortness of breath which is moderate to severe. The patient remains on a Vapotherm at 70% and tolerating this well. He did desaturate through the night but has had this wean down to 70% and doing well this morning. 9. The patient does have ischemic cardiomyopathy and acute systolic congestive heart failure. His ejection fraction is 10 to 15%. He is at increased risk for sudden cardiac . I had a long discussion with the patient and his about this. And we have discussed a LifeVest due to his increased risk of sudden cardiac , but the patient declined wanting to wear this at this time. He states that it would probably be too difficult for him to put on and operate, as well as it would probably be too cumbersome and given his respiratory status. I have told the patient and his to let us know if he changes his mind and the like this can be ordered. They verbalized understanding. 10. Further recommendations will be made pending the patient's response to treatment. Thank you for the opportunity to help participate in the care of this patient.
[2019-03-07 06:44] LABS: Basophils % 0.1 % (0.1-2.0); Eosinophils % 0.2 % (0.1-12.0); Hematocrit 32.4 % (42.0-52.0); Hemoglobin 10.4 g/dL (14.1-18.0); Lymphocytes # 0.6 K/mm3 (0.7-4.5); Lymphocytes % 4.7 % (10-50); Mean Corpuscular HGB Conc 32.2 g/dL (31.8-35.4); Mean Corpuscular Hemoglobin 30.5 pg (27.0-31.2); Mean Corpuscular Volume 94.8 fl (80-94); Mean Platelet Volume 7.1 fl (7.4-10.4); Monocytes # 0.4 K/mm3 (0.1-1.0); Monocytes % 3.5 % (1.7-9.3); Neutrophils # 11.5 K/mm3 (1.8-7.8); Neutrophils % 91.6 % (37.0-80.0); Platelet Count 451 K/mm3 (142-424); Red Blood Count 3.42 M/mm3 (4.60-6.20); Red Cell Distribution Width 13.8 % (11.5-17.5); White Blood Count 12.5 K/mm3 (4.8-10.8)
[2019-03-07 07:06] LABS: Calcium 8.5 mg/dL (8.5-10.1)
--- NOTE | 2019-03-07 07:10 | Progress Note ---
Internal Medicine - PN: Subj *Date: 03/07/19 *Time: 07:09 Interval history: Patient states he is feeling a little better this morning. He is noticing less shortness of breath. He remains on high flow oxygen via Vapotherm. Exam Vital signs and Labs for Last 24 Hours: Temp Pulse Resp BP Pulse Ox 97.4 F L 90 17 97/61 L 97 03/07/19 04:00 03/07/19 06:34 03/07/19 04:00 03/07/19 04:00 03/07/19 06:34 Laboratory Results - last 24 hr 03/06/19 05:55: Total Counted 100, Neutrophils % (Manual) 90 H, Lymphocytes % (Manual) 8 L, Monocytes % (Manual) 2, Platelet Estimate Normal, RBC Morphology Normal 03/06/19 11:19: POC Glucose 336 H* 03/06/19 16:38: POC Glucose 200 H 03/06/19 21:13: POC Glucose 222 H 03/07/19 06:01: POC Glucose 173 H 03/07/19 06:10: WBC 12.5 H, RBC 3.42 L, Hgb 10.4 L, Hct 32.4 L, MCV 94.8 H, MCH 30.5, MCHC 32.2, RDW 13.8, Plt Count 451 H, MPV 7.1 L, Neut % (Auto) 91.6 H, Lymph % (Auto) 4.7 L, [place] % (Auto) 3.5, Eos % (Auto) 0.2, Baso % (Auto) 0.1, Neut # (Auto) 11.5 H, Lymph # (Auto) 0.6 L, [place] # (Auto) 0.4, Eos # (Auto) 0.0, Baso # (Auto) 0.0 03/07/19 06:10: Sodium 126 L, Potassium 5.0, Chloride 92 L, Carbon Dioxide 27 D , Anion Gap 12.0, BUN 43 H, Creatinine 0.80 D, Estimated Creat Clear 61, Estimated GFR 95, Est GFR ( Amer) 115 D, Glucose 173 H, Calcium 8.5 I & O for Last 24 hours: Intake & Output 03/04/19 03/05/19 03/06/19 03/07/19 11:59 11:59 11:59 11:59 Intake Total 0 / 0 787 / 787 510 / 510 660 / 660 Output Total 250 / 250 1050 / 1050 1000 / 1000 1125 / 1125 Balance -250 / -250 -263 / -263 -490 / -490 -465 / -465 Weight 145 lb 118 lb 8 oz 145 lb 5 oz 143 lb 2 oz Microbiology Reports for the Last 24 Hours: Microbiology 03/06/19 05:30 Sputum - Expectorated Sputum Gram Stain - Final 03/06/19 05:30 Sputum - Expectorated Sputum Sputum Culture - Preliminary Narrative: Patient's color looks a little better this morning and he seems slightly more energetic. Lungs have poor aeration. Basilar crackles have diminished. Heart has a regular rate and rhythm Assessment and Plan (1) Non-STEMI (non-ST elevated myocardial infarction) Current visit: Yes Status: Acute Category: Medical Code(s): I21.4 - Non-ST elevation (NSTEMI) myocardial infarction (2) Acute exacerbation of chronic obstructive airways disease Current visit: Yes Status: Acute Category: Medical Code(s): J44.1 - Chronic obstructive pulmonary disease with (acute) exacerbation (3) Hyponatremia Current visit: Yes Status: Acute Category: Medical Code(s): E87.1 - Hypo- osmolality and hyponatremia (4) Interstitial pulmonary fibrosis Current visit: No Status: Chronic Category: Medical Code(s): J84.10 - Pulmonary fibrosis, unspecified (5) Diabetes Current visit: Yes Status: Acute Category: Medical Code(s): E11.9 - Type 2 diabetes mellitus without complications (6) Acute systolic CHF (congestive heart failure) Current visit: Yes Status: Acute Category: Medical Code(s): I50.21 - Acute systolic (congestive) heart failure (7) Chronic respiratory failure Current visit: Yes Status: Acute Category: Medical Code(s): J96.10 - Chronic respiratory failure, unspecified whether with hypoxia or hypercapnia (8) Body mass index (BMI) less than 19 in adult Current visit: Yes Status: Acute Category: Medical Code(s): Z68.1 - Body mass index (BMI) 19.9 or less, adult (9) Cardiomyopathy Current visit: Yes Status: Acute Category: Medical Code(s): I42.9 - Cardiomyopathy, unspecified (10) CAD (coronary artery disease), [place] coronary artery Current visit: Yes Status: Acute Category: Medical Code(s): I25.10 - Atherosclerotic heart disease of [place] coronary artery without angina pectoris - Assessment and plan all Dx Assessment and Plan for all problems:: 1. Continue to wean oxygen with goal O2 sats being high 80s to low 90s 2. Out of bed to chair today 3. Continue medical management of cardiomyopathy
--- NOTE | 2019-03-07 08:49 | Progress Note ---
Subjective Date: 03/07/19 Time: 08:45 Principal diagnosis: CAD, CHF, CM Interval history: 73-year-old white male in bed in the ICU. No acute distress continues to be somewhat tachypneic. He does feel that his breathing and overall state is improving albeit slowly. He denies any chest pain. He continues on Vapotherm oxygen. Vital signs are stable. Exam Vital signs and Labs for Last 24 Hours: Temp Pulse Resp BP Pulse Ox 97.4 F L 92 H 36 H 100/55 L 95 03/07/19 04:00 03/07/19 08:00 03/07/19 08:00 03/07/19 08:00 03/07/19 08:00 Laboratory Results - last 24 hr 03/06/19 05:55: Total Counted 100, Neutrophils % (Manual) 90 H, Lymphocytes % (Manual) 8 L, Monocytes % (Manual) 2, Platelet Estimate Normal, RBC Morphology Normal 03/06/19 11:19: POC Glucose 336 H* 03/06/19 16:38: POC Glucose 200 H 03/06/19 21:13: POC Glucose 222 H 03/07/19 06:01: POC Glucose 173 H 03/07/19 06:10: WBC 12.5 H, RBC 3.42 L, Hgb 10.4 L, Hct 32.4 L, MCV 94.8 H, MCH 30.5, MCHC 32.2, RDW 13.8, Plt Count 451 H, MPV 7.1 L, Neut % (Auto) 91.6 H, Lymph % (Auto) 4.7 L, [place] % (Auto) 3.5, Eos % (Auto) 0.2, Baso % (Auto) 0.1, Neut # (Auto) 11.5 H, Lymph # (Auto) 0.6 L, [place] # (Auto) 0.4, Eos # (Auto) 0.0, Baso # (Auto) 0.0 03/07/19 06:10: Sodium 126 L, Potassium 5.0, Chloride 92 L, Carbon Dioxide 27 D , Anion Gap 12.0, BUN 43 H, Creatinine 0.80 D, Estimated Creat Clear 61, Estimated GFR 95, Est GFR ( Amer) 115 D, Glucose 173 H, Calcium 8.5 I & O for Last 24 hours: Intake & Output 03/04/19 03/05/19 03/06/19 03/07/19 11:59 11:59 11:59 11:59 Intake Total 0 / 0 787 / 787 510 / 510 660 / 660 Output Total 250 / 250 1050 / 1050 1000 / 1000 1125 / 1125 Balance -250 / -250 -263 / -263 -490 / -490 -465 / -465 Weight 145 lb 118 lb 8 oz 145 lb 5 oz 143 lb 2 oz Microbiology Reports for the Last 24 Hours: Microbiology 03/06/19 05:30 Sputum - Expectorated Sputum Gram Stain - Final 03/06/19 05:30 Sputum - Expectorated Sputum Sputum Culture - Preliminary - *Routine HEENT Exam Head: Present: normocephalic Eye: Present: EOMI, PERRL ENT: Present: mucous membranes moist - *Routine Respiratory Exam Present: decreased breath sounds, diminished air movement. Absent: accessory muscle use, rales, rhonchi, wheezes - *Routine Cardiovascular Exam Present: RRR. Absent: murmur, gallop, rubs - *Routine Neurological Exam Present: alert, oriented X3, moving all extremities Progress Note: A&P (1) Non-STEMI (non-ST elevated myocardial infarction) Status: Acute Current Visit: Yes (2) Acute exacerbation of chronic obstructive airways disease Status: Acute Current Visit: Yes (3) Hyponatremia Status: Acute Current Visit: Yes (4) Interstitial pulmonary fibrosis Status: Chronic Current Visit: No (5) Diabetes Status: Acute Current Visit: Yes (6) Acute systolic CHF (congestive heart failure) Status: Acute Current Visit: Yes (7) Chronic respiratory failure Status: Acute Current Visit: Yes (8) Body mass index (BMI) less than 19 in adult Status: Acute Current Visit: Yes (9) Cardiomyopathy Status: Acute Current Visit: Yes (10) CAD (coronary artery disease), [place] coronary artery Status: Acute Current Visit: Yes Assessment and Plan for All Diagnoses:: 1. Patient continues on digoxin, GIANCARLO inhibitor, beta-michael, diuretic therapy for cardiomyopathy 2. Pulmonary fibrosis continues to complicate treatment. 3. Status post LAD drug-eluting stent placement, on aspirin and Plavix now 4. No new changes today. Patient's recovery will be slow and prolonged.
[2019-03-07 09:31] LABS: Lymphocytes % 5 % (10-50); Monocytes % 4 % (2-9); Neutrophils % 90 % (42-76); RBC Morphology Normal; Total Cells Counted 100
[2019-03-08 07:04] LABS: Basophils % 0.3 % (0.1-2.0); Eosinophils # 0.2 K/mm3 (0.0-0.4); Eosinophils % 1.2 % (0.1-12.0); Hematocrit 33.1 % (42.0-52.0); Hemoglobin 10.9 g/dL (14.1-18.0); Lymphocytes # 0.6 K/mm3 (0.7-4.5); Lymphocytes % 4.4 % (10-50); Mean Corpuscular Volume 93.9 fl (80-94); Mean Platelet Volume 6.9 fl (7.4-10.4); Monocytes # 0.3 K/mm3 (0.1-1.0); Monocytes % 2.4 % (1.7-9.3); Neutrophils # 12.4 K/mm3 (1.8-7.8); Neutrophils % 91.7 % (37.0-80.0); Platelet Count 487 K/mm3 (142-424); Red Blood Count 3.53 M/mm3 (4.60-6.20); Red Cell Distribution Width 13.7 % (11.5-17.5); White Blood Count 13.5 K/mm3 (4.8-10.8)
[2019-03-08 07:41] LABS: Anion Gap 9.4 mEq/L (5-15); Calcium 8.4 mg/dL (8.5-10.1); Potassium 5.4 mmoL/L (3.5-5.1)
--- NOTE | 2019-03-08 07:46 | Progress Note ---
Internal Medicine - PN: Subj *Date: 03/08/19 *Time: 07:43 Interval history: Patient reports he had a good night but nursing staff reports patient complained of burning chest pain during the night. Patient does tell me he had "heartburn". An EKG was performed which showed no changes and troponin was ordered which remains elevated. Exam Vital signs and Labs for Last 24 Hours: Temp Pulse Resp BP Pulse Ox 97.8 F 81 18 113/63 91 L 03/08/19 04:00 03/08/19 05:39 03/08/19 05:31 03/08/19 04:00 03/08/19 05:39 Laboratory Results - last 24 hr 03/07/19 06:10: Total Counted 100, Neutrophils % (Manual) 90 H, Lymphocytes % (Manual) 5 L, Monocytes % (Manual) 4, Metamyelocytes % 1.0, Platelet Estimate Slight increase, RBC Morphology Normal 03/07/19 11:32: POC Glucose 310 H* 03/07/19 16:59: POC Glucose 192 H 03/07/19 21:50: POC Glucose 249 H 03/08/19 05:17: POC Glucose 215 H 03/08/19 06:49: WBC 13.5 H, RBC 3.53 L, Hgb 10.9 L, Hct 33.1 L, MCV 93.9, MCH 31.0, MCHC 33.0, RDW 13.7, Plt Count 487 H, MPV 6.9 L, Neut % (Auto) 91.7 H, Lymph % (Auto) 4.4 L, [place] % (Auto) 2.4, Eos % (Auto) 1.2, Baso % (Auto) 0.3, Neut # (Auto) 12.4 H, Lymph # (Auto) 0.6 L, [place] # (Auto) 0.3, Eos # (Auto) 0.2, Baso # (Auto) 0.0 03/08/19 06:49: Sodium 125 L, Potassium 5.4 H, Chloride 92 L, Carbon Dioxide 29, Anion Gap 9.4, BUN 42 H, Creatinine 0.72, Estimated Creat Clear 62, Estimated GFR 107, Est GFR ( Amer) 130, Glucose 205 H, Calcium 8.4 L 03/08/19 06:49: Troponin I 6.55 H I & O for Last 24 hours: Intake & Output 03/05/19 03/06/19 03/07/19 03/08/19 11:59 11:59 11:59 11:59 Intake Total 787 / 787 510 / 510 660 / 660 Output Total 1050 / 1050 1000 / 1000 1125 / 1125 200 / 200 Balance -263 / -263 -490 / -490 -465 / -465 -200 / -200 Weight 118 lb 8 oz 145 lb 5 oz 143 lb 2 oz 144 lb 6 oz Microbiology Reports for the Last 24 Hours: Microbiology 03/06/19 05:30 Sputum - Expectorated Sputum Gram Stain - Final 03/06/19 05:30 Sputum - Expectorated Sputum Sputum Culture - Preliminary Narrative: Patient looks more comfortable today than yesterday. Lung exam remains about the same with poor inspiration but no rales, rhonchi, wheezes. Abdomen is thin and soft. Assessment and Plan (1) Non-STEMI (non-ST elevated myocardial infarction) Current visit: Yes Status: Acute Category: Medical Code(s): I21.4 - Non-ST elevation (NSTEMI) myocardial infarction (2) Acute exacerbation of chronic obstructive airways disease Current visit: Yes Status: Acute Category: Medical Code(s): J44.1 - Chronic obstructive pulmonary disease with (acute) exacerbation (3) Hyponatremia Current visit: Yes Status: Acute Category: Medical Code(s): E87.1 - Hypo- osmolality and hyponatremia (4) Interstitial pulmonary fibrosis Current visit: No Status: Chronic Category: Medical Code(s): J84.10 - Pulmonary fibrosis, unspecified (5) Diabetes Current visit: Yes Status: Acute Category: Medical Code(s): E11.9 - Type 2 diabetes mellitus without complications (6) Acute systolic CHF (congestive heart failure) Current visit: Yes Status: Acute Category: Medical Code(s): I50.21 - Acute systolic (congestive) heart failure (7) Chronic respiratory failure Current visit: Yes Status: Acute Category: Medical Code(s): J96.10 - Chronic respiratory failure, unspecified whether with hypoxia or hypercapnia (8) Body mass index (BMI) less than 19 in adult Current visit: Yes Status: Acute Category: Medical Code(s): Z68.1 - Body mass index (BMI) 19.9 or less, adult (9) Cardiomyopathy Current visit: Yes Status: Acute Category: Medical Code(s): I42.9 - Cardiomyopathy, unspecified (10) CAD (coronary artery disease), [place] coronary artery Current visit: Yes Status: Acute Category: Medical Code(s): I25.10 - Atherosclerotic heart disease of [place] coronary artery without angina pectoris - Assessment and plan all Dx Assessment and Plan for all problems:: Out of bed to chair today. PT eval. See cardiology's opinion on patient's chest burning with rising troponin. Wean oxygen
[2019-03-08 08:07] LABS: Lymphocytes % 7 % (10-50); Monocytes % 2 % (2-9); Neutrophils % 89 % (42-76); RBC Morphology Normal; Total Cells Counted 100
--- NOTE | 2019-03-08 09:46 | Progress Note ---
Subjective Date: 03/08/19 Time: 09:43 Principal diagnosis: CAD, CHF, CM Interval history: 73-year-old white male in bed sleeping after receiving 2 doses of morphine through the night due to restlessness and shortness of breath. Patient had complained of difficulty breathing but his Vapotherm oxygen had come off during the night. EKGs yesterday afternoon and early this morning were reviewed with no acute changes noted. Troponin this a.m. noted to be elevated at 6.5 which is likely due to occlusion of a "jailed" diagonal artery off of the LAD artery that was stented. No further treatment of this is anticipated at this time. Exam Vital signs and Labs for Last 24 Hours: Temp Pulse Resp BP Pulse Ox 97.8 F 82 24 93/55 L 90 L 03/08/19 04:00 03/08/19 08:00 03/08/19 08:00 03/08/19 08:00 03/08/19 08:00 Laboratory Results - last 24 hr 03/07/19 11:32: POC Glucose 310 H* 03/07/19 16:59: POC Glucose 192 H 03/07/19 21:50: POC Glucose 249 H 03/08/19 05:17: POC Glucose 215 H 03/08/19 06:49: WBC 13.5 H, RBC 3.53 L, Hgb 10.9 L, Hct 33.1 L, MCV 93.9, MCH 31.0, MCHC 33.0, RDW 13.7, Plt Count 487 H, MPV 6.9 L, Neut % (Auto) 91.7 H, Lymph % (Auto) 4.4 L, [place] % (Auto) 2.4, Eos % (Auto) 1.2, Baso % (Auto) 0.3, Neut # (Auto) 12.4 H, Lymph # (Auto) 0.6 L, [place] # (Auto) 0.3, Eos # (Auto) 0.2, Baso # (Auto) 0.0, Total Counted 100, Neutrophils % (Manual) 89 H, Band Neutrophils % 2.0, Lymphocytes % (Manual) 7 L, Monocytes % (Manual) 2, Platelet Estimate Slight increase, RBC Morphology Normal 03/08/19 06:49: Sodium 125 L, Potassium 5.4 H, Chloride 92 L, Carbon Dioxide 29, Anion Gap 9.4, BUN 42 H, Creatinine 0.72, Estimated Creat Clear 62, Estimated GFR 107, Est GFR ( Amer) 130, Glucose 205 H, Calcium 8.4 L 03/08/19 06:49: Troponin I 6.55 H I & O for Last 24 hours: Intake & Output 03/05/19 03/06/19 03/07/19 03/08/19 11:59 11:59 11:59 11:59 Intake Total 787 / 787 510 / 510 660 / 660 290 / 290 Output Total 1050 / 1050 1000 / 1000 1125 / 1125 200 / 200 Balance -263 / -263 -490 / -490 -465 / -465 90 / 90 Weight 118 lb 8 oz 145 lb 5 oz 143 lb 2 oz 144 lb 6 oz Microbiology Reports for the Last 24 Hours: Microbiology 03/06/19 05:30 Sputum - Expectorated Sputum Gram Stain - Final 03/06/19 05:30 Sputum - Expectorated Sputum Sputum Culture - Preliminary Gram Negative Rods Gram Negative Rods#2 - *Routine Respiratory Exam Present: decreased breath sounds, diminished air movement. Absent: accessory muscle use, rales, rhonchi, wheezes - *Routine Cardiovascular Exam Present: RRR. Absent: murmur, gallop, rubs - *Routine Neurological Exam Present: oriented X3, moving all extremities Sleeping soundly at this time. Progress Note: A&P (1) Non-STEMI (non-ST elevated myocardial infarction) Status: Acute Current Visit: Yes (2) Acute exacerbation of chronic obstructive airways disease Status: Acute Current Visit: Yes (3) Hyponatremia Status: Acute Current Visit: Yes (4) Interstitial pulmonary fibrosis Status: Chronic Current Visit: No (5) Diabetes Status: Acute Current Visit: Yes (6) Acute systolic CHF (congestive heart failure) Status: Acute Current Visit: Yes (7) Chronic respiratory failure Status: Acute Current Visit: Yes (8) Body mass index (BMI) less than 19 in adult Status: Acute Current Visit: Yes (9) Cardiomyopathy Status: Acute Current Visit: Yes (10) CAD (coronary artery disease), [place] coronary artery Status: Acute Current Visit: Yes Assessment and Plan for All Diagnoses:: 1. Non-ST elevation [place], status post LAD stenting with subsequent occlusion of diagonal branch artery causing additional rise in troponin. Continue medical therapy with dual antiplatelet therapy, carvedilol and irbesartan along with diuretic therapy and digoxin. 2. Patient's pulmonary fibrosis complicates all aspects of his care. 3. Poor prognosis
--- NOTE | 2019-03-09 01:32 | Progress Note ---
Internal Medicine - PN: Subj *Date: 03/09/19 *Time: 01:30 Interval history: Patient removed his oxygen yesterday evening resulting in hypoxia and a rapid response was called. Once oxygen was reapplied the patient O2 sats improved. Patient does not really have much recollection of that at this time. He is comfortable. Exam Vital signs and Labs for Last 24 Hours: Temp Pulse Resp BP Pulse Ox 97.5 F L 88 24 99/55 L 87 L 03/08/19 20:00 03/08/19 20:50 03/08/19 20:00 03/08/19 20:00 03/08/19 22:31 Laboratory Results - last 24 hr 03/08/19 05:17: POC Glucose 215 H 03/08/19 06:49: WBC 13.5 H, RBC 3.53 L, Hgb 10.9 L, Hct 33.1 L, MCV 93.9, MCH 31.0, MCHC 33.0, RDW 13.7, Plt Count 487 H, MPV 6.9 L, Neut % (Auto) 91.7 H, Lymph % (Auto) 4.4 L, [place] % (Auto) 2.4, Eos % (Auto) 1.2, Baso % (Auto) 0.3, Neut # (Auto) 12.4 H, Lymph # (Auto) 0.6 L, [place] # (Auto) 0.3, Eos # (Auto) 0.2, Baso # (Auto) 0.0, Total Counted 100, Neutrophils % (Manual) 89 H, [place] trophils % 2.0, Lymphocytes % (Manual) 7 L, Monocytes % (Manual) 2, Platelet Estimate Slight increase, RBC Morphology Normal 03/08/19 06:49: Sodium 125 L, Potassium 5.4 H, Chloride 92 L, Carbon Dioxide 29, Anion Gap 9.4, BUN 42 H, Creatinine 0.72, Estimated Creat Clear 62, Estimated GFR 107, Est GFR ( Amer) 130, Glucose 205 H, Calcium 8.4 L 03/08/19 06:49: Troponin I 6.55 H 03/08/19 11:07: POC Glucose 244 H 03/08/19 16:58: POC Glucose 277 H 03/08/19 21:17: POC Glucose 231 H I & O for Last 24 hours: Intake & Output 03/06/19 03/07/19 03/08/19 03/09/19 11:59 11:59 11:59 11:59 Intake Total 510 / 510 660 / 660 290 / 290 720 / 720 Output Total 1000 / 1000 1125 / 1125 200 / 200 100 / 100 Balance -490 / -490 -465 / -465 90 / 90 620 / 620 Weight 145 lb 5 oz 143 lb 2 oz 144 lb 6 oz Microbiology Reports for the Last 24 Hours: Microbiology 03/03/19 21:35 Blood Blood Culture - Final NO GROWTH AFTER 5 DAYS 03/03/19 21:35 Blood Blood Culture - Final NO GROWTH AFTER 5 DAYS 03/06/19 05:30 Sputum - Expectorated Sputum Gram Stain - Final 03/06/19 05:30 Sputum - Expectorated Sputum Sputum Culture - Preliminary Gram Negative Rods Gram Negative Rods#2 Narrative: He is in no distress. Lung exam is essentially unchanged with poor to fair aeration. Poor inspiratory effort. No wheezing is heard. Heart has a regular rate and rhythm Assessment and Plan (1) Non-STEMI (non-ST elevated myocardial infarction) Current visit: Yes Status: Acute Category: Medical Code(s): I21.4 - Non-ST elevation (NSTEMI) myocardial infarction (2) Acute exacerbation of chronic obstructive airways disease Current visit: Yes Status: Acute Category: Medical Code(s): J44.1 - Chronic obstructive pulmonary disease with (acute) exacerbation (3) Hyponatremia Current visit: Yes Status: Acute Category: Medical Code(s): E87.1 - Hypo- osmolality and hyponatremia (4) Interstitial pulmonary fibrosis Current visit: No Status: Chronic Category: Medical Code(s): J84.10 - Pulmonary fibrosis, unspecified (5) Diabetes Current visit: Yes Status: Acute Category: Medical Code(s): E11.9 - Type 2 diabetes mellitus without complications (6) Acute systolic CHF (congestive heart failure) Current visit: Yes Status: Acute Category: Medical Code(s): I50.21 - Acute systolic (congestive) heart failure (7) Chronic respiratory failure Current visit: Yes Status: Acute Category: Medical Code(s): J96.10 - Chronic respiratory failure, unspecified whether with hypoxia or hypercapnia (8) Body mass index (BMI) less than 19 in adult Current visit: Yes Status: Acute Category: Medical Code(s): Z68.1 - Body mass index (BMI) 19.9 or less, adult (9) Cardiomyopathy Current visit: Yes Status: Acute Category: Medical Code(s): I42.9 - Cardiomyopathy, unspecified (10) CAD (coronary artery disease), [place] coronary artery Current visit: Yes Status: Acute Category: Medical Code(s): I25.10 - Atherosclerotic heart disease of [place] coronary artery without angina pectoris - Assessment and plan all Dx Assessment and Plan for all problems:: Patient is stable and we will see if he continues to improve. He is certainly a candidate for hospice should his condition deteriorate
[2019-03-09 06:14] LABS: Basophils % 0.2 % (0.1-2.0); Eosinophils # 0.1 K/mm3 (0.0-0.4); Eosinophils % 0.8 % (0.1-12.0); Hematocrit 33.5 % (42.0-52.0); Lymphocytes # 0.6 K/mm3 (0.7-4.5); Lymphocytes % 4.2 % (10-50); Mean Corpuscular HGB Conc 32.8 g/dL (31.8-35.4); Mean Corpuscular Volume 94.4 fl (80-94); Mean Platelet Volume 7.1 fl (7.4-10.4); Monocytes # 0.4 K/mm3 (0.1-1.0); Monocytes % 3.1 % (1.7-9.3); Neutrophils # 12.9 K/mm3 (1.8-7.8); Neutrophils % 91.7 % (37.0-80.0); Platelet Count 510 K/mm3 (142-424); Red Blood Count 3.54 M/mm3 (4.60-6.20); Red Cell Distribution Width 13.9 % (11.5-17.5); White Blood Count 14.1 K/mm3 (4.8-10.8)
[2019-03-09 07:20] LABS: Anion Gap 5.7 mEq/L (5-15); Calcium 7.8 mg/dL (8.5-10.1); Potassium 5.7 mmoL/L (3.5-5.1)
[2019-03-09 08:31] LABS: Lymphocytes % 3 % (10-50); Monocytes % 1 % (2-9); Neutrophils % 95 % (42-76); RBC Morphology Normal; Total Cells Counted 100
--- NOTE | 2019-03-10 08:07 | Progress Note ---
Internal Medicine - PN: Subj *Date: 03/10/19 *Time: 08:05 Interval history: Patient appears comfortable this morning. He denies any complaints. His daughter is at bedside. Patient did not get out of bed yesterday because "therapy did not come and get me up". He remains on Vapotherm although has been weaned. Exam Vital signs and Labs for Last 24 Hours: Temp Pulse Resp BP Pulse Ox 98.0 F 83 21 119/69 97 03/10/19 04:00 03/10/19 05:59 03/10/19 04:00 03/10/19 04:00 03/10/19 05:59 Laboratory Results - last 24 hr 03/09/19 06:00: Total Counted 100, Neutrophils % (Manual) 95 H, Band Neutrophils % 1.0, Lymphocytes % (Manual) 3 L, Monocytes % (Manual) 1 L, Platelet Estimate Moderate increase, RBC Morphology Normal 03/09/19 11:00: POC Glucose 220 H 03/09/19 16:11: POC Glucose 174 H 03/09/19 20:55: POC Glucose 169 H 03/10/19 05:45: POC Glucose 170 H I & O for Last 24 hours: Intake & Output 03/07/19 03/08/19 03/09/19 03/10/19 11:59 11:59 11:59 11:59 Intake Total 660 / 660 290 / 290 720 / 720 Output Total 1125 / 1125 200 / 200 400 / 400 2165 / 2165 Balance -465 / -465 90 / 90 320 / 320 -2165 / -2165 Weight 143 lb 2 oz 144 lb 6 oz 145 lb 2 oz 145 lb 5 oz Microbiology Reports for the Last 24 Hours: Microbiology 03/06/19 05:30 Sputum - Expectorated Sputum Gram Stain - Final 03/06/19 05:30 Sputum - Expectorated Sputum Sputum Culture - Final Stenotrophomonas maltophilia Narrative: He is in no distress. There is no sign of respiratory distress or increased work of breathing. Lungs have poor aeration with inspiratory crackles heard anteriorly. Heart has a regular rate and rhythm. Abdomen is soft and nontender. Extremities are without edema. Assessment and Plan (1) Non-STEMI (non-ST elevated myocardial infarction) Current visit: Yes Status: Acute Category: Medical Code(s): I21.4 - Non-ST elevation (NSTEMI) myocardial infarction (2) Acute exacerbation of chronic obstructive airways disease Current visit: Yes Status: Acute Category: Medical Code(s): J44.1 - Chronic obstructive pulmonary disease with (acute) exacerbation (3) Hyponatremia Current visit: Yes Status: Acute Category: Medical Code(s): E87.1 - Hypo- osmolality and hyponatremia (4) Interstitial pulmonary fibrosis Current visit: No Status: Chronic Category: Medical Code(s): J84.10 - Pulmonary fibrosis, unspecified (5) Diabetes Current visit: Yes Status: Acute Category: Medical Code(s): E11.9 - Type 2 diabetes mellitus without complications (6) Acute systolic CHF (congestive heart failure) Current visit: Yes Status: Acute Category: Medical Code(s): I50.21 - Acute systolic (congestive) heart failure (7) Chronic respiratory failure Current visit: Yes Status: Acute Category: Medical Code(s): J96.10 - Chronic respiratory failure, unspecified whether with hypoxia or hypercapnia (8) Body mass index (BMI) less than 19 in adult Current visit: Yes Status: Acute Category: Medical Code(s): Z68.1 - Body mass index (BMI) 19.9 or less, adult (9) Cardiomyopathy Current visit: Yes Status: Acute Category: Medical Code(s): I42.9 - Cardiomyopathy, unspecified (10) CAD (coronary artery disease), [place] coronary artery Current visit: Yes Status: Acute Category: Medical Code(s): I25.10 - Atherosclerotic heart disease of [place] coronary artery without angina pectoris - Assessment and plan all Dx Assessment and Plan for all problems:: Continue to wean Vapotherm. Patient is quite weak and will require transitioning to shelter facility before possibly returning home.
[2019-03-10 16:11] LABS: Microscopic, Urine URINE MICROSCOPIC (MICROSCOPIC)
[2019-03-10 16:12] LABS: Appearance,Urine CLEAR (Clear); Bilirubin,Urine Negative (Negative); Blood, Urine Negative (Negative); Color,Urine YELLOW (Yellow); Glucose,Urine (UA) Negative (Negative); Ketones,Urine Negative (Negative); Leukocyte Esterase,Urine Negative (Negative); PH,Urine 6.5 (5.0-8.5); Protein,Urine Negative (Negative); Urobilinogen,Urine 0.2 EU/dl (0.2)
[2019-03-10 17:26] LABS: Squamous Epithelial Cell,Urine Occasional #/hpf (0-5); WBC,Urine Occasional #/hpf (0-3)
[2019-03-10 17:27] LABS: Bacteria,Urine Trace /lpf
--- NOTE | 2019-03-11 07:42 | Progress Note ---
Internal Medicine - PN: Subj *Date: 03/11/19 *Time: 07:38 Interval history: Patient developed some suprapubic discomfort yesterday afternoon and inability to urinate. [place] catheter was placed and anchored. This did relieve the suprapubic discomfort. Patient was able to sit up in the chair yesterday afternoon for approximately 5 hours. He remains weak and his appetite is poor. Exam Vital signs and Labs for Last 24 Hours: Temp Pulse Resp BP Pulse Ox 97.5 F L 84 20 114/69 89 L 03/11/19 04:00 03/11/19 05:59 03/11/19 04:00 03/11/19 04:00 03/11/19 05:59 Laboratory Results - last 24 hr 03/10/19 11:24: POC Glucose 214 H 03/10/19 14:58: Urine Color Yellow, Urine Appearance Clear, Urine pH 6.5, Ur Specific [place] 1.010, Urine Protein Negative, Urine Glucose (UA) Negative, Urine Ketones Negative, Urine Blood Negative, Urine Nitrate Negative, Urine Bilirubin Negative, Urine Urobilinogen 0.2, Ur Leukocyte Esterase Negative, Urine WBC Occasional, Ur Squamous Epith Cells Occasional, Urine Bacteria Trace, Hyaline Casts 3-5 03/10/19 16:01: POC Glucose 150 H 03/10/19 21:25: POC Glucose 207 H 03/11/19 06:34: POC Glucose 170 H I & O for Last 24 hours: Intake & Output 03/08/19 03/09/19 03/10/19 03/11/19 11:59 11:59 11:59 11:59 Intake Total 290 / 290 720 / 720 120 / 120 480 / 480 Output Total 200 / 200 400 / 400 2165 / 2165 700 / 700 Balance 90 / 90 320 / 320 -2045 / -2045 -220 / -220 Weight 144 lb 6 oz 145 lb 2 oz 145 lb 5 oz 142 lb 8 oz Narrative: Patient appears comfortable. Lungs have poor to fair aeration with basilar crackles. Heart has a regular rate and rhythm. Abdomen is thin and soft. Assessment and Plan (1) Non-STEMI (non-ST elevated myocardial infarction) Current visit: Yes Status: Acute Category: Medical Code(s): I21.4 - Non-ST elevation (NSTEMI) myocardial infarction (2) Acute exacerbation of chronic obstructive airways disease Current visit: Yes Status: Acute Category: Medical Code(s): J44.1 - Chronic obstructive pulmonary disease with (acute) exacerbation (3) Hyponatremia Current visit: Yes Status: Acute Category: Medical Code(s): E87.1 - Hypo- osmolality and hyponatremia (4) Interstitial pulmonary fibrosis Current visit: No Status: Chronic Category: Medical Code(s): J84.10 - Pulmonary fibrosis, unspecified (5) Diabetes Current visit: Yes Status: Acute Category: Medical Code(s): E11.9 - Type 2 diabetes mellitus without complications (6) Acute systolic CHF (congestive heart failure) Current visit: Yes Status: Acute Category: Medical Code(s): I50.21 - Acute systolic (congestive) heart failure (7) Chronic respiratory failure Current visit: Yes Status: Acute Category: Medical Code(s): J96.10 - Chronic respiratory failure, unspecified whether with hypoxia or hypercapnia (8) Body mass index (BMI) less than 19 in adult Current visit: Yes Status: Acute Category: Medical Code(s): Z68.1 - Body mass index (BMI) 19.9 or less, adult (9) Cardiomyopathy Current visit: Yes Status: Acute Category: Medical Code(s): I42.9 - Cardiomyopathy, unspecified (10) CAD (coronary artery disease), [place] coronary artery Current visit: Yes Status: Acute Category: Medical Code(s): I25.10 - Atherosclerotic heart disease of [place] coronary artery without angina pectoris (11) Acute bronchitis Current visit: Yes Status: Acute Category: Medical Code(s): J20.9 - Acute bronchitis, unspecified (12) Infection due to Stenotrophomonas maltophilia Current visit: Yes Status: Acute Category: Medical Code(s): A49.8 - Other bacterial infections of unspecified site - Assessment and plan all Dx Assessment and Plan for all problems:: 1. DC Vapotherm today and in place use patient's nasal cannula if able 2. Patient remains quite weak and will need short-term rehab at a halfway facility with ultimate goal to return home 3. Keep [place] catheter anchored at this time 4. Continue PT while inpatient
[2019-03-11 08:16] LABS: Anion Gap 7.6 mEq/L (5-15); Calcium 8.2 mg/dL (8.5-10.1); Potassium 4.6 mmoL/L (3.5-5.1)
--- NOTE | 2019-03-11 08:37 | Progress Note ---
Subjective Date: 03/11/19 Time: 08:35 Principal diagnosis: CAD, CHF, CM Interval history: 73-year-old white male in bed on Vapotherm in no acute distress. He continues to gradually improve. He denies any chest pain, pressure or tightness. Exam Vital signs and Labs for Last 24 Hours: Temp Pulse Resp BP Pulse Ox 97.5 F L 84 20 114/69 89 L 03/11/19 04:00 03/11/19 05:59 03/11/19 04:00 03/11/19 04:00 03/11/19 05:59 Laboratory Results - last 24 hr 03/10/19 11:24: POC Glucose 214 H 03/10/19 14:58: Urine Color Yellow, Urine Appearance Clear, Urine pH 6.5, Ur Specific [place] 1.010, Urine Protein Negative, Urine Glucose (UA) Negative, Urine Ketones Negative, Urine Blood Negative, Urine Nitrate Negative, Urine Bilirubin Negative, Urine Urobilinogen 0.2, Ur Leukocyte Esterase Negative, Urine WBC Occasional, Ur Squamous Epith Cells Occasional, Urine Bacteria Trace, Hyaline Casts 3-5 03/10/19 16:01: POC Glucose 150 H 03/10/19 21:25: POC Glucose 207 H 03/11/19 06:34: POC Glucose 170 H 03/11/19 08:00: Sodium 125 L, Potassium 4.6, Chloride 86 L, Carbon Dioxide 36 H, Anion Gap 7.6, BUN 25 H D, Creatinine 0.68 L, Estimated Creat Clear 61, Estimated GFR 115, Est GFR ( Amer) 139, Glucose 274 H, Calcium 8.2 L I & O for Last 24 hours: Intake & Output 03/08/19 03/09/19 03/10/19 03/11/19 11:59 11:59 11:59 11:59 Intake Total 290 / 290 720 / 720 120 / 120 480 / 480 Output Total 200 / 200 400 / 400 2165 / 2165 700 / 700 Balance 90 / 90 320 / 320 -2045 / -2045 -220 / -220 Weight 144 lb 6 oz 145 lb 2 oz 145 lb 5 oz 142 lb 8 oz - *Routine HEENT Exam Head: Present: normocephalic Eye: Present: EOMI, PERRL ENT: Present: mucous membranes moist - *Routine Respiratory Exam Present: CTA bilaterally, wheezes. Absent: accessory muscle use, rales, rhonchi - *Routine Cardiovascular Exam Present: RRR. Absent: murmur, gallop, rubs - *Routine Neurological Exam Present: alert, oriented X3, moving all extremities Progress Note: A&P (1) Non-STEMI (non-ST elevated myocardial infarction) Status: Acute Current Visit: Yes (2) Acute exacerbation of chronic obstructive airways disease Status: Acute Current Visit: Yes (3) Hyponatremia Status: Acute Current Visit: Yes (4) Interstitial pulmonary fibrosis Status: Chronic Current Visit: No (5) Diabetes Status: Acute Current Visit: Yes (6) Acute systolic CHF (congestive heart failure) Status: Acute Current Visit: Yes (7) Chronic respiratory failure Status: Acute Current Visit: Yes (8) Body mass index (BMI) less than 19 in adult Status: Acute Current Visit: Yes (9) Cardiomyopathy Status: Acute Current Visit: Yes (10) CAD (coronary artery disease), [place] coronary artery Status: Acute Current Visit: Yes (11) Acute bronchitis Status: Acute Current Visit: Yes (12) Infection due to Stenotrophomonas maltophilia Status: Acute Current Visit: Yes Assessment and Plan for All Diagnoses:: Continue dual antiplatelet therapy referral recent coronary stenting. Continue cardiomyopathy therapy. Patient continues to have a slow, gradual improvement.
[2019-03-11 16:54] LABS: ABG Base Excess 10.6 mmol/L (-2.4-2.3); ABG Oxygen Saturation 90 % (90-100); ABG PCO2 46.3 mmhg (35.0-45.0); ABG PH 7.48 mmol/L (7.35-7.45); ABG PO2 59.1 mmhg (80-100); ABG TCO2 35.4 mmhg (23-27)
[2019-03-11 16:59] LABS: Allen's Test Acceptable; Oxygen 45 %
--- NOTE | 2019-03-12 07:38 | Progress Note ---
Internal Medicine - PN: Subj *Date: 03/12/19 *Time: 07:34 Interval history: Patient has no complaints today. His day did not go well yesterday as he had significant nausea. He denies chest pain. He feels like his shortness of breath is at baseline. Patient remains on supplemental oxygen through the Vapotherm. Continued attempts are being made to wean Exam Vital signs and Labs for Last 24 Hours: Temp Pulse Resp BP Pulse Ox 97.8 F 83 20 110/63 94 L 03/12/19 04:00 03/12/19 05:54 03/12/19 04:00 03/12/19 04:00 03/12/19 05:54 Laboratory Results - last 24 hr 03/11/19 08:00: Sodium 125 L, Potassium 4.6, Chloride 86 L, Carbon Dioxide 36 H, Anion Gap 7.6, BUN 25 H D, Creatinine 0.68 L, Estimated Creat Clear 61, Estimated GFR 115, Est GFR ( Amer) 139, Glucose 274 H, Calcium 8.2 L 03/11/19 10:43: POC Glucose 248 H 03/11/19 16:07: Specimen Source Right radial, O2 % 45, ABG pH 7.48 H, ABG pCO2 46.3 H, ABG pO2 59.1 L, ABG HCO3 34.0 H, ABG Total CO2 35.4 H, ABG O2 Saturation 90, ABG Base Excess 10.6 H, Deondre Test Acceptable 03/11/19 16:33: POC Glucose 158 H 03/11/19 21:20: POC Glucose 166 H 03/12/19 06:00: POC Glucose 130 H I & O for Last 24 hours: Intake & Output 03/09/19 03/10/19 03/11/19 03/12/19 11:59 11:59 11:59 11:59 Intake Total 720 / 720 120 / 120 720 / 720 860 / 860 Output Total 400 / 400 2165 / 2165 700 / 700 1400 / 1400 Balance 320 / 320 -2045 / -2045 20 / 20 -540 / -540 Weight 145 lb 2 oz 145 lb 5 oz 142 lb 8 oz 140 lb 6 oz Narrative: Elderly, frail-appearing male. Lungs have poor to fair aeration without expiratory wheezes but basilar crackles are heard both anteriorly and posteriorly from his pulmonary fibrosis. Heart has a regular rate and rhythm Assessment and Plan (1) Non-STEMI (non-ST elevated myocardial infarction) Current visit: Yes Status: Acute Category: Medical Code(s): I21.4 - Non-ST elevation (NSTEMI) myocardial infarction (2) Acute exacerbation of chronic obstructive airways disease Current visit: Yes Status: Acute Category: Medical Code(s): J44.1 - Chronic obstructive pulmonary disease with (acute) exacerbation (3) Hyponatremia Current visit: Yes Status: Acute Category: Medical Code(s): E87.1 - Hypo- osmolality and hyponatremia (4) Interstitial pulmonary fibrosis Current visit: No Status: Chronic Category: Medical Code(s): J84.10 - Pulmonary fibrosis, unspecified (5) Diabetes Current visit: Yes Status: Acute Category: Medical Code(s): E11.9 - Type 2 diabetes mellitus without complications (6) Acute systolic CHF (congestive heart failure) Current visit: Yes Status: Acute Category: Medical Code(s): I50.21 - Acute systolic (congestive) heart failure (7) Chronic respiratory failure Current visit: Yes Status: Acute Category: Medical Code(s): J96.10 - Chronic respiratory failure, unspecified whether with hypoxia or hypercapnia (8) Body mass index (BMI) less than 19 in adult Current visit: Yes Status: Acute Category: Medical Code(s): Z68.1 - Body mass index (BMI) 19.9 or less, adult (9) Cardiomyopathy Current visit: Yes Status: Acute Category: Medical Code(s): I42.9 - Cardiomyopathy, unspecified (10) CAD (coronary artery disease), [place] coronary artery Current visit: Yes Status: Acute Category: Medical Code(s): I25.10 - Atherosclerotic heart disease of [place] coronary artery without angina pectoris (11) Acute bronchitis Current visit: Yes Status: Acute Category: Medical Code(s): J20.9 - Acute bronchitis, unspecified (12) Infection due to Stenotrophomonas maltophilia Current visit: Yes Status: Acute Category: Medical Code(s): A49.8 - Other bacterial infections of unspecified site - Assessment and plan all Dx Assessment and Plan for all problems:: 1. Wean Vapotherm 2. So await decision for short-term rehab at at local nursing facility 3. Continue current IV antibiotics 4. Medical management of his heart disease. 5. 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 DC MiraLAX due to diarrhea
--- NOTE | 2019-03-12 10:04 | Progress Note ---
Subjective Date: 03/12/19 Time: 09:58 Principal diagnosis: CAD, CHF, CM Interval history: 73-year-old white male in bedside chair. Continues to have conversational dyspnea at 2-3 words. Complains of fatigue. Daughter relates they are awaiting bed placement for rehab. Patient is still on Vapotherm oxygen. Eyes and nose continue to be net negative Exam Vital signs and Labs for Last 24 Hours: Temp Pulse Resp BP Pulse Ox 97.1 F L 84 19 102/57 L 85 L 03/12/19 08:00 03/12/19 09:12 03/12/19 08:00 03/12/19 08:00 03/12/19 08:40 Laboratory Results - last 24 hr 03/11/19 10:43: POC Glucose 248 H 03/11/19 16:07: Specimen Source Right radial, O2 % 45, ABG pH 7.48 H, ABG pCO2 46.3 H, ABG pO2 59.1 L, ABG HCO3 34.0 H, ABG Total CO2 35.4 H, ABG O2 Saturation 90, ABG Base Excess 10.6 H, Deondre Test Acceptable 03/11/19 16:33: POC Glucose 158 H 03/11/19 21:20: POC Glucose 166 H 03/12/19 06:00: POC Glucose 130 H I & O for Last 24 hours: Intake & Output 03/09/19 03/10/19 03/11/19 03/12/19 11:59 11:59 11:59 11:59 Intake Total 720 / 720 120 / 120 720 / 720 980 / 980 Output Total 400 / 400 2165 / 2165 700 / 700 1400 / 1400 Balance 320 / 320 -2045 / -2045 20 / 20 -420 / -420 Weight 145 lb 2 oz 145 lb 5 oz 142 lb 8 oz 140 lb 6 oz - *Routine HEENT Exam Head: Present: normocephalic Eye: Present: EOMI, PERRL ENT: Present: mucous membranes moist - *Routine Respiratory Exam Present: rhonchi, wheezes, diminished air movement. Absent: accessory muscle use, rales - *Routine Extremities Exam Absent: edema, calf tenderness - *Routine Neurological Exam Present: alert, oriented X3, moving all extremities Progress Note: A&P (1) Non-STEMI (non-ST elevated myocardial infarction) Status: Acute Current Visit: Yes (2) Acute exacerbation of chronic obstructive airways disease Status: Acute Current Visit: Yes (3) Hyponatremia Status: Acute Current Visit: Yes (4) Interstitial pulmonary fibrosis Status: Chronic Current Visit: No (5) Diabetes Status: Acute Current Visit: Yes (6) Acute systolic CHF (congestive heart failure) Status: Acute Current Visit: Yes (7) Chronic respiratory failure Status: Acute Current Visit: Yes (8) Body mass index (BMI) less than 19 in adult Status: Acute Current Visit: Yes (9) Cardiomyopathy Status: Acute Current Visit: Yes (10) CAD (coronary artery disease), [place] coronary artery Status: Acute Current Visit: Yes (11) Acute bronchitis Status: Acute Current Visit: Yes (12) Infection due to Stenotrophomonas maltophilia Status: Acute Current Visit: Yes Assessment and Plan for All Diagnoses:: 1. Status post extensive left main and LAD coronary stenting on 03/04/2019. Patient remains on dual antiplatelet therapy 2. Severe cardiomyopathy, currently on Coreg therapy. Patient previously on irbesartan but it appears to have been stopped recently due to concern for hyperkalemia. 3. Will obtain limited echo today to re-assess LVEF
--- NOTE | 2019-03-13 05:41 | Cardiology Report ---
PROCEDURE: 2-D M-mode and color Doppler study INDICATIONS FOR THE TEST: Chest pain COPD Heart Murmur Tobacco Smoking Palpitations Fatigue Syncope Edema Hypertension Diabetes Mellitus Rheumatic Fever SOB PEPE Obesity Hyperlipidemia Family History HD Additional History F/U FOR EF CHECK ONLY, CAD , END STAGE COPD,CM PATIENT INFORMATION HEIGHT:70 WEIGHT:140 GENDER: Male B/P: 2-D/M-MODE INTERPRETATION: 2-D MEASUREMENTS OBSERVED VALUES IN CMS Right Ventricular Dimension (RVDd) Interventricular Septum (Thickness)(IVsd) Left Ventricular Internal Dimensions(LVIDd) Left Ventricular Posterior Wall (Thickness)(LVPWd) Aortic Root Aortic Cusp Separation Left Atrial Dimensions (LAD) 2D 1. Limited study was performed to evaluate left ventricular left ventricular systolic function. 2. Left atrium is mildly enlarged, left ventricle is normal size, mild concentric left ventricular hypertrophy, severely reduced left ventricular systolic function, visually estimated ejection fraction of 20-25% with marked hypo to akinesis involving the mid to distal septum, anterior, anterior apical, apex, inferior apical and anterolateral wall. 3. The right atrium and right ventricle are normal size and contractility. 4. The aortic valve is thickened and calcified leaflet continue to display mobility. 5. The mitral and tricuspid valves are minimally thickened. 6. The pulmonic valve is poorly visualized. 7. Trivial pericardial effusion noted. DOPPLER INTERROGATION: There is no Doppler performed. CONCLUSION: 1. Limited study 2. Normal left ventricular size, mild concentric left ventricular hypertrophy, there is severely reduced left ventricular systolic function, visually estimated ejection fraction of 20-25% with segmental wall motion abnormality described above. 3. Trivial pericardial effusion noted.
--- NOTE | 2019-03-13 07:41 | Progress Note ---
Internal Medicine - PN: Subj *Date: 03/13/19 *Time: 07:39 Interval history: Patient admits to not feeling well this morning. He reports upset stomach and burning sensation. He denies chest pain. Nursing staff is noticed increased work of breathing. Patient was weaned to nasal cannula yesterday which she did well with initially but as time went on mild respiratory distress developed and he was placed on a Ventimask. Currently patient is on nasal cannula Exam Vital signs and Labs for Last 24 Hours: Temp Pulse Resp BP Pulse Ox 98.5 F 92 H 28 H 110/61 90 L 03/13/19 04:00 03/13/19 05:55 03/13/19 04:00 03/13/19 04:00 03/13/19 04:00 Laboratory Results - last 24 hr 03/12/19 12:08: POC Glucose 203 H 03/12/19 16:49: POC Glucose 232 H 03/12/19 21:26: POC Glucose 117 H 03/13/19 06:31: POC Glucose 127 H I & O for Last 24 hours: Intake & Output 03/10/19 03/11/19 03/12/19 03/13/19 11:59 11:59 11:59 11:59 Intake Total 120 / 120 720 / 720 980 / 980 380 / 380 Output Total 2165 / 2165 700 / 700 1400 / 1400 175 / 175 Balance -2045 / -2045 20 / 20 -420 / -420 205 / 205 Weight 145 lb 5 oz 142 lb 8 oz 140 lb 6 oz 139 lb 3 oz Narrative: Patient is in mild respiratory distress. Oropharynx is moist. Lungs have dry crackles anteriorly and posteriorly. Poor aeration. Heart has a regular rate and rhythm. Abdomen is soft with mild epigastric tenderness Assessment and Plan (1) Non-STEMI (non-ST elevated myocardial infarction) Current visit: Yes Status: Acute Category: Medical Code(s): I21.4 - Non-ST elevation (NSTEMI) myocardial infarction (2) Acute exacerbation of chronic obstructive airways disease Current visit: Yes Status: Acute Category: Medical Code(s): J44.1 - Chronic obstructive pulmonary disease with (acute) exacerbation (3) Hyponatremia Current visit: Yes Status: Acute Category: Medical Code(s): E87.1 - Hypo- osmolality and hyponatremia (4) Interstitial pulmonary fibrosis Current visit: No Status: Chronic Category: Medical Code(s): J84.10 - Pulmonary fibrosis, unspecified (5) Diabetes Current visit: Yes Status: Acute Category: Medical Code(s): E11.9 - Type 2 diabetes mellitus without complications (6) Acute systolic CHF (congestive heart failure) Current visit: Yes Status: Acute Category: Medical Code(s): I50.21 - Acute systolic (congestive) heart failure (7) Chronic respiratory failure Current visit: Yes Status: Acute Category: Medical Code(s): J96.10 - Chronic respiratory failure, unspecified whether with hypoxia or hypercapnia (8) Body mass index (BMI) less than 19 in adult Current visit: Yes Status: Acute Category: Medical Code(s): Z68.1 - Body mass index (BMI) 19.9 or less, adult (9) Cardiomyopathy Current visit: Yes Status: Acute Category: Medical Code(s): I42.9 - Cardiomyopathy, unspecified (10) CAD (coronary artery disease), [place] coronary artery Current visit: Yes Status: Acute Category: Medical Code(s): I25.10 - Atherosclerotic heart disease of [place] coronary artery without angina pectoris (11) Acute bronchitis Current visit: Yes Status: Acute Category: Medical Code(s): J20.9 - Acute bronchitis, unspecified (12) Infection due to Stenotrophomonas maltophilia Current visit: Yes Status: Acute Category: Medical Code(s): A49.8 - Other bacterial infections of unspecified site - Assessment and plan all Dx Assessment and Plan for all problems:: Patient's condition has deteriorated. Hospice will be consulted. Morphine has been ordered for pain or dyspnea.
[2019-03-13 07:50] LABS: Anion Gap 12.5 mEq/L (5-15); Calcium 8.3 mg/dL (8.5-10.1); Potassium 4.5 mmoL/L (3.5-5.1)
--- NOTE | 2019-03-13 10:33 | Progress Note ---
Subjective Date: 03/13/19 Time: 10:30 Principal diagnosis: CAD, CHF, CM Interval history: 73 yo WM in bed sleeping. Decision for hospice made with institution of morphine for comfort. Pt seems to be resting at this time. Family in room and have accepted outcome. Appreciative of help and care. Exam Vital signs and Labs for Last 24 Hours: Temp Pulse Resp BP Pulse Ox 97.9 F 92 H 18 119/65 96 03/13/19 08:00 03/13/19 08:00 03/13/19 08:00 03/13/19 08:00 03/13/19 08:00 Laboratory Results - last 24 hr 03/12/19 12:08: POC Glucose 203 H 03/12/19 16:49: POC Glucose 232 H 03/12/19 21:26: POC Glucose 117 H 03/13/19 06:31: POC Glucose 127 H 03/13/19 07:08: Sodium 122 L, Potassium 4.5, Chloride 83 L, Carbon Dioxide 31, Anion Gap 12.5, BUN 29 H, Creatinine 0.77, Estimated Creat Clear 60, Estimated GFR 99, Est GFR ( Amer) 120, Glucose 122 H, Calcium 8.3 L I & O for Last 24 hours: Intake & Output 03/10/19 03/11/19 03/12/19 03/13/19 11:59 11:59 11:59 11:59 Intake Total 120 / 120 720 / 720 980 / 980 860 / 860 Output Total 2165 / 2165 700 / 700 1400 / 1400 175 / 175 Balance -2045 / -2045 20 / 20 -420 / -420 685 / 685 Weight 145 lb 5 oz 142 lb 8 oz 140 lb 6 oz 139 lb 3 oz - *Routine Respiratory Exam Present: CTA bilaterally. Absent: accessory muscle use, rales, rhonchi, wheezes - *Routine Cardiovascular Exam Present: RRR. Absent: murmur, gallop, rubs Progress Note: A&P (1) Non-STEMI (non-ST elevated myocardial infarction) Status: Acute Current Visit: Yes (2) Acute exacerbation of chronic obstructive airways disease Status: Acute Current Visit: Yes (3) Hyponatremia Status: Acute Current Visit: Yes (4) Interstitial pulmonary fibrosis Status: Chronic Current Visit: No (5) Diabetes Status: Acute Current Visit: Yes (6) Acute systolic CHF (congestive heart failure) Status: Acute Current Visit: Yes (7) Chronic respiratory failure Status: Acute Current Visit: Yes (8) Body mass index (BMI) less than 19 in adult Status: Acute Current Visit: Yes (9) Cardiomyopathy Status: Acute Current Visit: Yes (10) CAD (coronary artery disease), [place] coronary artery Status: Acute Current Visit: Yes (11) Acute bronchitis Status: Acute Current Visit: Yes (12) Infection due to Stenotrophomonas maltophilia Status: Acute Current Visit: Yes Assessment and Plan for All Diagnoses:: Hospice care Continue current meds Nothing further to add. Call if needed.
--- NOTE | 2019-03-14 07:43 | Discharge Summary ---
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 Patient reports onset of shortness of breath at home with decreased O2 sats at home. He was able to increase his supplemental oxygen and raise his O2 sats at home to the 90s but this did not really alleviate any of his shortness of breath and he return to the emergency department. Patient denies chest pain but does report some discomfort along the left collarbone occurring. On work-up in the emergency department he was found to have an elevated troponin and patient was admitted for cardiology consultation echocardiogram has been performed this morning. Chest x-ray and CT scan show chronic changes of the lungs without acute infiltrates. Hospital Course Hospital Course: Patient was admitted with diagnosis of acute non-ST elevation ME along with acute congestive heart failure. Patient was diuresed and placed on antiplatelet therapy. Cardiology was consulted. Patient underwent cardiac catheterization and was found to have left main and left anterior descending artery disease which was stented. Patient was placed on dual antiplatelet therapy of aspirin and Plavix. After procedure patient required high flow oxygen with Vapotherm. Over the course of the next week Vapotherm was slowly weaned. Patient's care was complicated by his underlying pulmonary fibrosis. Patient seemingly improved and small amounts each day until March 12 at which point patient's condition deteriorated. During the hospitalization comfort care and hospice were repeatedly introduced to the discussion as patient's prognosis was quite poor with his severe LV dysfunction and underlying pulmonary fibrosis. When patient's condition worsened family accepted hospice care. Hospice was consulte d. Patient was discharged home on March 14 under the care of hospice. Objective Vital signs: Temp Pulse Resp BP Pulse Ox 97.8 F 85 28 H 109/60 L 95 03/14/19 04:00 03/14/19 06:03 03/14/19 04:00 03/14/19 04:00 03/14/19 06:03 Results Labs on day of discharge: Labs from last 24 hours 03/13/19 07:08 Sodium 122 L Potassium 4.5 Chloride 83 L Carbon Dioxide 31 Anion Gap 12.5 BUN 29 H Creatinine 0.77 Estimated Creat Clear 60 Estimated GFR 99 Est GFR ( Amer) 120 Glucose 122 H Calcium 8.3 L DS: Diagnosis - Discharge Diagnosis (1) Non-STEMI (non-ST elevated myocardial infarction) Status: Acute (2) Acute exacerbation of chronic obstructive airways disease Status: Acute (3) Hyponatremia Status: Acute (4) Interstitial pulmonary fibrosis Status: Chronic (5) Diabetes Status: Acute (6) Acute systolic CHF (congestive heart failure) Status: Acute (7) Chronic respiratory failure Status: Acute (8) Body mass index (BMI) less than 19 in adult Status: Acute (9) Cardiomyopathy Status: Acute (10) CAD (coronary artery disease), [place] coronary artery Status: Acute (11) Acute bronchitis Status: Acute (12) Infection due to Stenotrophomonas maltophilia Status: Acute Discharge Plan - Patient Discharge Instructions ACTIVITY: Continue current activity DIET: continue same diet Patient Instructions: Type 2 Diabetes, Chronic Obstructive Pulmonary Disease, Angina, Cardiac Catheterization, DI for Heart Failure, DI for Chronic Obstructive Pulmonary Disease, DI for Hyponatremia, DI for Surgical Site Infection, Hyponatremia-Adult - Follow up Plan Disposition: Hospice - Home Home Medications: Home Medications Medication Instructions Recorded Confirmed Type Albuterol Sulfate [Albuterol HFA 2 puff INHALATION Q4HP PRN 08/13/18 03/04/19 History Inhaler] Fenofibrate Nanocrystallized 145 mg PO DAILY 08/13/18 03/04/19 History [Fenofibrate] Metformin HCl 850 mg PO BID 08/13/18 03/04/19 History Pravastatin Sodium [Pravachol 20mg 20 mg PO HS 08/13/18 03/04/19 History Tablet] Amlodipine Besylate 10 mg PO HS 03/01/19 03/04/19 History Aspirin [Aspirin 81mg chewable 81 mg PO DAILY 03/01/19 03/04/19 History tab] Megestrol Acetate [Megestrol 40 mg PO DAILY 03/01/19 03/04/19 History Acetate 40mg Tablet] Budesonide 2 ml IH DAILY 03/02/19 03/04/19 History Calcium Carbonate/Vitamin D3 1 each PO DAILY 03/02/19 03/04/19 History [Calcium 1,000 + D3 Caplet] Multivitamin [Multivitamins] 1 each PO DAILY 03/02/19 03/04/19 History Trimble-3 Fatty Acids/Fish Oil 1 each PO DAILY 03/02/19 03/04/19 History [Trimble 3 1,000 mg Softgel] Citalopram Hydrobromide [Celexa 10 mg PO DAILY 03/04/19 03/04/19 History 10mg Tablet] Glimepiride [Amaryl] 2 mg PO DAILY 03/04/19 03/04/19 History Nintedanib Esylate [Ofev] 150 mg PO BID 03/04/19 03/04/19 History Ondansetron HCl [Ondansetron 8mg 8 mg PO Q8HP PRN 03/04/19 03/04/19 History Tablet] Polyethylene Glycol 3350 [Miralax 17 gm PO DAILY 03/04/19 03/04/19 History Powder] Sulfamethoxazole/Trimethoprim 1 tab PO DAILY 03/04/19 03/04/19 History [Sulfamethoxazole-Tmp Ds Tablet] Tiotropium Br/Olodaterol HCl 2 puffs IH DAILY 03/04/19 03/04/19 History [Stiolto Respimat Inhal [place]] predniSONE [Deltasone 20mg 20 mg PO DAILY 03/04/19 03/04/19 History tablet] Aspirin [Aspir 81] 81 mg PO DAILY #30 tablet. 03/14/19 Rx Clopidogrel Bisulfate [Plavix 75mg 75 mg PO DAILY #30 tab 03/14/19 Rx Tab] Prescriptions/Medication Reconciliation: New Aspirin [Aspir 81] 81 mg PO DAILY #30 tablet. Clopidogrel Bisulfate [Plavix 75mg Tab] 75 mg PO DAILY #30 tab Continued Albuterol Sulfate [Albuterol HFA Inhaler] 2 puff INHALATION Q4HP PRN PRN Reason: Shortness Of Breath Aspirin [Aspirin 81mg chewable tab] 81 mg PO DAILY Budesonide 2 ml IH DAILY Citalopram Hydrobromide [Celexa 10mg Tablet] 10 mg PO DAILY Polyethylene Glycol 3350 [Miralax Powder] 17 gm PO DAILY Tiotropium Br/Olodaterol HCl [Stiolto Respimat Inhal Lehr] 2 puffs IH DAILY Pravastatin Sodium [Pravachol 20mg Tablet] 20 mg PO HS predniSONE [Deltasone 20mg tablet] 20 mg PO DAILY Ondansetron HCl [Ondansetron 8mg Tablet] 8 mg PO Q8HP PRN PRN Reason: Nausea Discontinued Metformin HCl 850 mg PO BID Fenofibrate Nanocrystallized [Fenofibrate] 145 mg PO DAILY Amlodipine Besylate 10 mg PO HS Multivitamin [Multivitamins] 1 each PO DAILY Calcium Carbonate/Vitamin D3 [Calcium 1,000 + D3 Caplet] 1 each PO DAILY Glimepiride [Amaryl] 2 mg PO DAILY Sulfamethoxazole/Trimethoprim [Sulfamethoxazole-Tmp Ds Tablet] 1 tab PO DAILY Megestrol Acetate [Megestrol Acetate 40mg Tablet] 40 mg PO DAILY Trimble-3 Fatty Acids/Fish Oil [Trimble 3 1,000 mg Softgel] 1 each PO DAILY Nintedanib Esylate [Ofev] 150 mg PO BID
--- NOTE | 2019-03-14 08:08 | Progress Note ---
Internal Medicine - PN: Subj *Date: 03/14/19 *Time: 08:07 Exam Vital signs and Labs for Last 24 Hours: Temp Pulse Resp BP Pulse Ox 97.8 F 85 28 H 109/60 L 95 03/14/19 04:00 03/14/19 06:03 03/14/19 04:00 03/14/19 04:00 03/14/19 06:03 I & O for Last 24 hours: Intake & Output 03/11/19 03/12/19 03/13/19 03/14/19 23:59 23:59 23:59 23:59 Intake Total 1100 / 1100 490 / 490 740 / 740 Output Total 1500 / 1500 775 / 775 550 / 550 200 / 200 Balance -400 / -400 -285 / -285 190 / 190 -200 / -200 Weight 64.637 kg 63.673 kg 63.134 kg 62.256 kg Assessment and Plan (1) Non-STEMI (non-ST elevated myocardial infarction) Current visit: Yes Status: Acute Category: Medical Code(s): I21.4 - Non-ST elevation (NSTEMI) myocardial infarction (2) Acute exacerbation of chronic obstructive airways disease Current visit: Yes Status: Acute Category: Medical Code(s): J44.1 - Chronic obstructive pulmonary disease with (acute) exacerbation (3) Hyponatremia Current visit: Yes Status: Acute Category: Medical Code(s): E87.1 - Hypo- osmolality and hyponatremia (4) Interstitial pulmonary fibrosis Current visit: No Status: Chronic Category: Medical Code(s): J84.10 - Pulmonary fibrosis, unspecified (5) Diabetes Current visit: Yes Status: Acute Category: Medical Code(s): E11.9 - Type 2 diabetes mellitus without complications (6) Acute systolic CHF (congestive heart failure) Current visit: Yes Status: Acute Category: Medical Code(s): I50.21 - Acute systolic (congestive) heart failure (7) Chronic respiratory failure Current visit: Yes Status: Acute Category: Medical Code(s): J96.10 - Chronic respiratory failure, unspecified whether with hypoxia or hypercapnia (8) Body mass index (BMI) less than 19 in adult Current visit: Yes Status: Acute Category: Medical Code(s): Z68.1 - Body mass index (BMI) 19.9 or less, adult (9) Cardiomyopathy Current visit: Yes Status: Acute Category: Medical Code(s): I42.9 - Cardiomyopathy, unspecified (10) CAD (coronary artery disease), [place] coronary artery Current visit: Yes Status: Acute Category: Medical Code(s): I25.10 - Atherosclerotic heart disease of [place] coronary artery without angina pectoris (11) Acute bronchitis Current visit: Yes Status: Acute Category: Medical Code(s): J20.9 - Acute bronchitis, unspecified (12) Infection due to Stenotrophomonas maltophilia Current visit: Yes Status: Acute Category: Medical Code(s): A49.8 - Other bacterial infections of unspecified site The patient's infection will respond to the chosen ABx?: Yes Is the patient receiving the right drug, dose, and route?: Yes Could a more targeted ABx be ordered?: No (culture sensitive to levaquin)
== END 2019-03-14 14:41 | disposition hospice, home (50) | DRG 246 ==
LOC: 2ND 21:23 → ER 21:23 → OBSVTOIN 03-04 03:20 → 2ND 03-04 03:21 → ICU 03-04 10:48 → 2ND 03-07 14:04
PROVIDERS: ADMIT Internal Medicine Adolescent Medicine; ATTEND Family Medicine
CPT/HCPCS: 36415; 71010; 71045; 71275; 74176; 80048; 80053; 80061; 81001; 82150; 82803; 82962; 83605; 83690; 83735; 83880; 84484; 85007; 85025; 85347; 87040; 87070; 87077; 87186; 87205; 87275; 87276; 87506; 92928; 93005; 93306; 93308; 93458; 94640; 94760; 94761; 96365; 96366; 96367; 96375; 97163; 97165; 97530; 99152; 99153; 99285; C1725; C1769; C1874; C1876; C9600; G0378; J1644; J1956; J2405; Q9967